=== PATIENT | female | born 1990 | race Caucasian/White ===

== ENCOUNTER 2023-11-05 16:18 | Observation (INO) ==
[2023-11-05 16:59] VITALS: RESP 18
--- NOTE | 2023-11-05 19:11 | Ultrasound Report ---
Examination: OB Ultrasound, CLINICAL HISTORY: prolonged monitoring. Gestational hypertension Technique: Multiple real-time transabdominal sonographic images were obtained. Comparison: None available at the time of this dictation. Findings: There is a fetus in cephalic presentation. heart rate measures 142 bpm. Amniotic fluid index me asures 8.7 cm. Biophysical profile measures 4/8 as follows: Movement: 2 Tone: 0 Breathin Fluid: 2 IMPRESSION: A single live intrauterine with measurements as above. ACT 112: Negative or not required by law. Electronically signed by: J Carlos Perez M.D. 11/05/2023 7:09 PM
--- NOTE | 2023-11-05 21:49 | History & Physical Report ---
Date of Service November 05, 2023 Assessment & Plan (1) Decreased movement affecting management of in third tr imester: Plan: repeat BPP in AM continuous monitoring overnight History of Present Illness Chief Complaint: prolonged monitoring Primary Care Provider: NO PCP 33 F P0Alaina at 35 weeks was seen in the office today for her routine BPP which was 4/8/ She was seen and put on monitor and had a repeat BPP which was 4/8 and Cat 1 FHT. I spoke to [facility] fellow who then discussed the patient with Dr. Hickey. She recommended the patient be monitored overnight with a repeat BPP in the morning. Allergies Allergy/AdvReac Type Severity Reaction Status Date / Time No Known Allergies Allergy Verified 02/03/18 09:30 Home Medications Medication Instructions Recorded Confirmed Type famotidine 20 mg tablet (Pepcid) 20 mg PO DAILY 11/05/23 11/05/23 History vits no.124-ferrous fum 1 tab PO DAILY 11/05/23 11/05/23 History 27 mg iron-folic acid 800 mcg tablet ( Vitamin) Patient History Medical History Torn ACL (anterior cruciate ligament) left PCOS (polycystic ovarian syndrome) GERD (gastroesophageal reflux disease) Environmental allergies Surgical History History of open reduction and internal fixation (ORIF) procedure RT T[place] ([place]) History of tooth extraction History of tonsillectomy History of adenoidectomy History of myringotomy Family History Grandmother Family history of diabetes mellitus Maternal and Paternal Social History Smoking Status: Never smoker Second Hand Exposure: No; Do You Dip or Chew Tobacco: No; Hx Alcohol Use: Yes Alcohol type: beer, wine and hard liquor Hx Substance Use: No Preferred Language: Kazakh Communication Ability: Effective Is Technician Required: No Beliefs That Will Affect Care: None marital status: Current Living Situation: Spouse Other Information That Helps Us Care for You: No Feels Safe at Home: Yes OB History GHTN DELIVERY MANAGER History Dysplasia Review of Systems All systems reviewed & are unremarkable except as noted in HPI & below Physical Exam Constitutional: WD/WN, vitals as above Eyes: PERRL, conjunctivae normal, anicteric sclerae Respiratory: normal respiratory effort, lungs clear to auscultation Cardiovascular: Rate/Rhythm: regular rate and regular rhythm Gastrointestinal (Abdomen): Inspection/Auscultation: abdomen normal to inspection Musculoskeletal: Extremities: extremities normal to inspection Skin: no rashes, warm and dry Neurologic: patellar DTR's 2+ bilat, sensation intact Psychiatric: A+Ox3, euthymic affect Genitourinary: OB Exam Monitor Tracing: + external FHT monitor used, + external uterine monitor used, + category I and + normal FHT variability Results & Data Vital Signs (Past 12 Hours) Vital Signs Temp Pulse Resp BP 11/05/23 20:28 118 H 11/05/23 20:28 133/86 11/05/23 20:21 120 H 11/05/23 20:21 142/87 H 11/05/23 20:15 36.5 C 11/05/23 17:55 122 H 139/83 11/05/23 16:45 36.5 C 116 H 18 155/88 H 11/05/23 16:38 116 H 155/88 H Code Status & VTE Plan VTE Prophylaxis Plan VTE Prophylaxis will be ordered: No Reason for no VTE drug order: Treatment not indicated Monitoring External Monitor Cat 1
[2023-11-05] MEDS: FAMOTIDINE 20 MG TAB PO ONE (22:00)
[2023-11-05] MEDS: CALCIUM CARBONATE 500 MG CHEWABLE TAB PO PRN (22:39)
--- OUTSIDE RECORDS SUMMARY | 2023-11-06 03:23 | External Medical Summary | Summary of Care ---
Author Name Unknown Organization [facility] Address [address] [place] [address] Phone [phone] Care Team Providers Care Elevator Adjuster Name Role Phone Unavailable Primary Care Provider Unavailabl e Reason for Referral * Evaluate & Treat - Unlimited Visits (Within 10 days (routine)) - Authorized Specialty Diagnoses / Procedures Referred By Franc t Referred To Contact Obstetrics/Gynecology / Maternal Medicine Diagnoses Gestational hypertension without significant proteinuria in third trimester Yuri Morin CRNP [address] [place] [address] Referral ID Status Reason Start Date Expiration Date Visits Requested Visits Authorized [id number] Authorized Specialty Services Required 10/24/2023 999 999 Question Answer Referral Priority Within 10 days (routine) Has the patient had a viability scan? Yes Date performed 05/20/2023 Location performed Radiology Reason for referral Hypertension Hypertension type Gestational Where should this appointment be scheduled? [facility] Comments /Para: LMP: Patient's last menstrual period was 03/05/2023. Patient is . JIN: 12/10/2023, by Last Menstrual Period Pre-Gravid BMI: 38.80 Encounter Details Date Type Department Care Team (Late st Contact Info) Description 10/23/2023 Telephone Gynecology/Obstetrics [facility] [address] [place] [phone] Yuri Morin CRNP [address] [place] [id number] Allergies No known active allergiesdocumented as of this encounter (statuses as of 10/29/2023) Medications Medication Sig Dispensed Refills Start Date End Date Status /Iron Oral Tablet Take by mouth. 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 05/30/2023 Overview: LSIL +HPV on pap at [facility] Obesity, Class II, BMI 35-39.9 05/20/2023 Overview: Early glucola Growth u/s every 4 weeks after 20wk NST weekly at 37w PCOS (polycystic ovarian syndrome) 05/20/2023 Estimated Date of Delivery Comme nts Yes 12/10/2023 Based on last me nstrual period of 03/05/2023 documented as of this encounter (statuses as of 10/29/2023) Resolved Problems Problem Noted Date Diagnosed Date Resolved Date Elevated blood pressure, situational 10/22/2023 10/24/2023 Overview: 140/90 10/22/23; preE labs sent Supervision of normal first , antepartum 05/20/2023 10/24/2023 documented as of this encounter (statuses as of 10/29/2023) Immunizations Name Administration Dates Next Due TDAP, Age 7 and older, IM (Adacel) 10/08/2023 documented as of this encounter Social History Tobacco Use Types Packs/Day Years Used Date Smoking Tobacco: Never Smokeless Tobacco: Never Alcohol Use Standard Drinks/Week Comments Not Currently 0 (1 standard drink = 0.6 oz pur e alcohol) Hunger Vital Sign Answer Date Recorded Within the past 12 months, y ou worried that your food would run out before you got the money to buy more. Never true 05/17/19 24 Within the past 12 months, t he food you bought just didn't last and you didn't have money to get more. Never true 05/17/2023 [place] Depression Scale Answer Date Recorded [place] Depression Scale Total 2 05/20/2023 The thought of harming myself has occurred to me . Never 05/20/2023 Childcare Answer Date Recorded Do you feel overwhelmed with taking care of a child, family member or friend? No 05/17/2023 Does your family need help f inding childcare? (Household - for ages 0-17 years) Not on file 05/17/2023 Clothing Answer Date Recorded Have you been unable to get clothing when it was really needed? No 05/17/2023 Is your family able to get c lothes or diapers when needed? (Household - for ages 0-17 years) Not on file 05/17/2023 Personal Safety Answer Date Recorded Do you feel unsafe or have concerns for your saf ety? No 05/17/2023 Do you have concerns for you r family's safety? (Household - for ages 0-17 years) Not on file 05/17/2023 Utilities Answer Date Recorded Do you have trouble paying y our heating, water, or electric bill? No 05/17/2023 Is your family able to pay t he heat, water, or electric bill? (Household - for ages 0-17 years) Not on file 05/17/2023 Does your family have access to good internet? (Household - for ages 0-17 years) Not on file 05/17/2023 Employment Status Answer Date Recorded Are you unemployed or without regular income? No 05/17/2023 Does the household have a re gular source of income? (Household - for ages 0-17 years) Not on file 05/17/2023 Social Connections Answer Date Recorded How often do you feel lonely or isolated from th ose around you? Never 05/17/2023 Financial Resource Strain Answer Date R ecorded Do you have any trouble payi ng for your medications, or do you think you might in the future? No 05/17/2023 Does your family have troubl e paying for medicine? (Household - for ages 0-17 years) Not on file 05/17/2023 Transportation Needs Answer Date Record ed READ ONLY Do you have troubl e getting a ride to medical visits or work? Never True 05/17/2023 Does your family have a hard time getting a ride to doctors visits? (Household - for ages 0-17 years) Not on file 05/17/2023 Has lack of transportation k ept you from medical appointments, meetings, work, or from getting things needed for daily living? Check all that apply. (Adult - for ages 18 years and over) Not on file 05/17/2023 Do you (or your family) have trouble finding or paying for a ride (transportation)? (Household - for ages 0-17 years) Not on file 05/17/2023 Housing Stability Answer Date Recorded Do you currently live in a s helter or have no steady place to sleep at night? No 05/17/2023 READ ONLY Do you think you a re at risk of becoming homeless? No 05/17/2023 Does your family worry about paying for your home or becoming homeless? (Household - for ages 0-17 years) Not on file 0 05/17/2023 Are you homeless or worried that you might be in the future? (Adult - for ages 18 years and over) Not on file Are you (or your family) pattie eless or worried that you might be in the future? (Household - for ages 0-17 years) Not on file Food Insecurity Answer Date Recorded Do you need food for this week? No 05/17/2023 Are you able to get enough f ood for your family? (Household - for ages 0-17 years) Not on file 05/17/2023 Does your family need food t his week? (Household - for ages 0-17 years) Not on file 05/17/2023 Do you always have enough fo od for your family? (Household - for ages 0-17 years) Not on file 05/17/2023 Estimated Date of Delivery Comme nts Yes 12/10/2023 Based on last me nstrual period of 03/05/2023 Sex and Gender Information Value Date Recorded Sex Assigned at Female 05/17/2023 12:34 PM EST Gender Identity Female 05/17/2023 12:34 PM EST Sexual Orientation Straight 05/17/2023 12 :40 PM EST Job Start Date Occupation Industry Not on file Not on file Not on file documented as of this encounter Miscellaneous Notes * Telephone Encounter - Arti Porras PA-C - 10/25/2023 4:25 PM EDT Veronica had left for day when patient was here for appointment. She had non-reactive NST/ BPP was 10/30 on 10/25/2023. Patient again declines twice weekly appointment for NST -- states won't work with her work schedule. She prefers to proceed with once weekly BPP and BP checks as discussed previously with FredisJessica Martin, can you call patient and schedule her back for once weekly NST starting this Saturday 10/28. Needs to be every Saturday. I also recommended appointment with provider with each BPP. Please assist. Arti Porras PA-C * Telephone Encounter - Nataliya Ba LPN - 10/24/2023 11:22 AM EDT Pt will schedule bpp tomorrow when she comes in for nst * Addendum Note - Yuri Morin CRNP - 10/24/2023 11:05 AM EDT Addended by: YURI MORIN on: 10/24/2023 11:05 AM Modules accepted: Orders * Addendum Note - Nataliya Ba LPN - 10/24/2023 10:58 AM EDTAddended by: NATALIYA BA on: 10/24/2023 10:58 AM Modules accepted: Orders * Telephone Encounter - Nataliya Ba LPN - 10/24/2023 10:56 AM EDT Pt verbalized understanding and said she will get that scheduled for BPP and elise appt/ bp check tomorrow when she comes in . Will you please place order for BPP? * Telephone Encounter - Yuri Morin CRNP - 10/24/2023 10:41 AM EDT Would advise at least a weekly BPP and weekly BP check/provider visit. CARMELO Naylor * Telephone Encounter - Thu Gallo RN - 10/24/2023 10:22 AM EDT Patient calling back in. 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 She states she wants to see if possible due to the far travel. Patient advised that we do not typically recommend this, unless it would be another [facility] location. But Advised I would discuss other options with the provider. Please review/advise if patient could have some NSTs done at outside location or if recommend BPP Instead? She states it will be very hard for her travel here twice a week with her working in [place], [place] 3 days a week also. * Telephone Encounter - Nataliya Ba LPN - 10/24/2023 8:55 AM EDT Spoke with pt she verbalized understanding. Appt made for NST only tomorrow and pt will schedule tomorrow for next weeks nst * Telephone Encounter - Yuri Morin CRNP - 10/24/2023 8:32 AM EDT Diagnosed with GHTN based on BPs. Needs to start 2x/week NSTs. Will place a referral to MFM, they will want to do a growth u/s when due and a telemedicine visit with her for recommendations. Continue twice daily BP checks - call office with >/=160 systolic, >/=100 diastolic, new ANTONY, vision changes, abdominal pain, decreased FM, bleeding, labor signs. Will also need weekly preE labs; most recently completed earlier this week. NST tomorrow, as she had one on Saturday. CARMELO Naylor * Telephone Encounter - Nataliya Ba LPN - 10/23/2023 3:04 PM EDT Pt called in today with her BP's 815am: 132/91 1210pm: 143/93 Pt denies any ANTONY's, Vision changes, RQ pain, LOF, vb, Ctxs Pt said she is just going to monitor BP until next appt. Please review and advise for any f/u. documented in this encounter Plan of Treatment Upcoming Encounters Date Type Department Care Team (Late st Contact Info) Description 11/01/2023 1:30 PM EDT Hem/Onc Treatment Hematology/Oncology Treatment, [address] [place] [id number] Anita, Chair 4 Hem Onc [facility] [address] [place] [address] 11/04/2023 2:30 PM EDT Pharmacy Pharmacy, [place] [address] [place] [address] Clinic, [facility] [address] [place] [address] 11/05/2023 3:00 PM EDT Imaging Radiology [facility] [address] [facility] [place] [address] 11/05/2023 4:15 PM EDT Office Visit Gynecology/Obstetrics [facility] [address] [facility] [place] [address] Nuno Phelps, [place] [place] [address] 11/07/2023 4:15 PM EDT Telemedicine Cigarette Making Examiner Obstetric [facility] [address] [place] [address] [place] [address] Stephanie Hall CRNP [address] [place] [address] 11/12/2023 3:30 PM EDT Imaging Radiology [facility] 2nd [facility] [address] [facility] [place] [address] 11/12/2023 3:30 PM EDT Office Visit Gynecology/Obstetrics [address] [place] [address] Arely Canales PA-C [address] [place] [address] 11/19/2023 8:00 AM EDT Office Visit Gynecology/Obstetrics [address] [place] [address] Rosalie Dykes CRNP [address] [facility] [place] [address] 11/19/2023 8:30 AM EDT Office Visit Cigarette Making Examiner Obstetrics [facility], [place] [address] [place] [address] Kasey Condon DO [address] [place] [address] 11/19/2023 8:30 AM EDT Imaging [facility]iology [facility] [address] [place] [address] Scheduled Orders Name Type Priority Associated Diagnoses Orde r Schedule MFM US MATERNAL 1ST FETUS Medical Imaging Routine Gestational hypertension without significant proteinuria in third trimester Expected: 11/07/2023 (Approximate), Expires: 11/23/2024 US BPP W/O NON-STRESS TEST Medical Imaging Routine Gestational hypertension without significant proteinuria in third trimester High-risk in third trimester Obesity, Class II, BMI 35-39.9 Every Week for 6 Occurrences starting 10/24/2023 until 01/24/2024 Scheduled Referrals Name Type Priority Associated Diagnoses Orde r Schedule MATERNAL MEDICINE REFERRAL OP Referral Within 10 days (routine) Gestational hypertension without significant proteinuria in third trimester Ordered: 10/24/2023 Health Maintenance Due Date Last Done Comments Depression Screening 2002 COVID-19 Vaccine ( season) 2022 04/20/2020, 03/30/2020 Influenza Vaccine (FLU shot) (#1) 2023 01/28/2023, 01/08/2018, 01/31/2014 GFR 10/21/2024 10/22/2023, 09/20/2023 Pap Smear 05/20/2026 05/20/2023 Cervical Cancer Screening 05/20/2028 HPV/Co-Test 05/20/2028 05/20/2023 DTaP,Tdap,and Td Vaccines (8 - Td or Tdap) 10/07/2033 10/08/2023, 09/06/2008, 11/04/1995, Additional history exists Hepatitis B Vaccine Completed 02/09/1993, 08/10/1992, 06/30/1992 HPV (Gardasil) Vaccine Aged Out No lo nger eligible based on patient's age to complete this topic MENINGOCOCCAL (MENACTRA/MENVEO) Aged Out No longer eligible based on patient's age to complete this topic Pneumococcal Vaccine: Pediatrics (0 to 5 Years) and At-Risk Patients (6 to 64 Years) Aged Out No longer eligible based on patient's age to complete this topic documented as of this encounter Medical Devices Not on filedocumented as of this encounter Visit Diagnoses Diagnosis Gestational hypertension without significant proteinuria in third trimester- Primary Transient hypertension of , antepartum High-risk in third trimester Obesity, Class II, BMI 35-39.9 Morbid obesity documented in this encounter
--- OUTSIDE RECORDS SUMMARY | 2023-11-06 03:23 | External Medical Summary | Summary of Care ---
Author Name Unknown Organization [facility] Address [address] [place] [address] Phone [phone] Care Team Providers Care Affiliate Manager Name Role Phone Unavailable Primary Care Provider Unavailabl e Reason for Referral * Evaluate & Treat - Unlimited Visits (Within 10 days (routine)) - Authorized Specialty Diagnoses / Procedures Referred By Franc t Referred To Contact Obstetrics/Gynecology / Maternal Medicine Diagnoses Gestational hypertension without significant proteinuria in third trimester Yuri Morin CRNP [address] [place] [address] Referral ID Status Reason Start Date Expiration Date Visits Requested Visits Authorized [id number] Authorized Specialty Services Required 10/24/2023 999 999 [...] Gynecology/Obstetrics [facility] [address] [place] [address] Yuri Morin CRNP [address] [place] [address] Allergies No known active allergiesdocumented as of this encounter (statuses as of 10/28/2023) Medications Medication Sig Dispensed Refills Start Date End Date Status /Iron Oral Tablet Take by mouth. Active documented as of this encounter (statuses as of 10/28/2023) Active Problems Problem Noted Date Diagnosed Date [...] as of this encounter (statuses as of 10/28/2023) Resolved Problems Problem Noted Date Diagnosed Date Resolved Date Elevated blood pressure, situational 10/22/2023 10/24/2023 Overview: 140/90 10/22/23; preE labs sent Supervision of normal first , antepartum 05/20/2023 10/24/2023 documented as of this encounter (statuses as of 10/28/2023) Immunizations Name Administration Dates Next Due TDAP, [...] money to get more. 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 She states she wants to see if possible due to the far travel. Patient advised that we do not typically recommend this, unless it would be another [facility] location. But Advised I would discuss other options with the provider. Please review/advise if patient could have some NSTs done at outside location or if recommend BPP Instead? She states it will be very hard for her travel here twice a week with her working in [place], [place] 3 days a week also. * [...] Care Team (Late st Contact Info) Description 10/29/2023 1:45 PM EDT Imaging Radiology [facility] [address] [place] [address] 10/29/2023 2:45 PM EDT Office Visit Gynecology/Obstetrics [facility] [address] [place] [address] Yuri Morin CRNP [address] [place] [address] 11/01/2023 1:30 PM EDT Hem/Onc Treatment Hematology/Oncology Treatment, [place] [address] [place] [address] [place], Chair 4 Hem Onc [facility] [address] [place] [address] 11/04/2023 2:30 PM EDT Pharmacy Pharmacy, [place] [address] [place] [address] [facility], [facility] [address] [place] [address] 11/05/2023 3:00 PM EDT Imaging Radiology [facility] [address] [place] [address] 11/05/2023 4:15 PM EDT Office Visit Gynecology/Obstetrics [facility] [address] [place] [address] Nuno Phelps, [address] [address] 11/07/2023 4:15 PM EDT Telemedicine Paper Inserter Obstetric [facility] [address] [place] [address] Stephanie Hall CRNP [address] [place] [address] 11/19/2023 8:00 AM EDT Office Visit Gynecology/Obstetrics [facility] [address] [place] [address] Rosalie Dykes CRNP [address] [place] [address] 11/19/2023 8:30 AM EDT Office Visit Paper Inserter Obstetrics [facility], [place] [address] [place] [address] Kasey Condon DO [address] [place] [address] 11/19/2023 8:30 AM EDT Imaging [facility] [address] [place] [address] Scheduled Orders Name Type Priority Associated Diagnoses [...]
--- OUTSIDE RECORDS SUMMARY | 2023-11-06 03:23 | External Medical Summary | Summary of Care ---
Author Name Unknown Organization [facility] Address [address] [place] [address] Phone [phone] Care Team Providers Care Food And Beverage Outlets Manager Name Role Phone Unavailable Primary Care Provider Unavailabl e Reason for Referral * Evaluate & Treat - Unlimited Visits (Within 10 days (routine)) - Authorized Specialty Diagnoses / Procedures Referred By Franc t Referred To Contact Obstetrics/Gynecology / Maternal Medicine Diagnoses Gestational hypertension without significant proteinuria in third trimester Yuri Morin CRNP [address] [place] [address] Referral ID Status Reason Start Date Expiration Date Visits Requested Visits Authorized [id number] Authorized Specialty Services Required 10/24/2023 999 999 [...] Gynecology/Obstetrics Shital Louises [address] [place] [address] Yuri Morin CRNP [address] [place] [address] Allergies No known active allergiesdocumented as of [...] money to get more. 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 She states she wants to see if possible due to the far travel. Patient advised that we do not typically recommend this, unless it would be another [facility] location. But Advised I would discuss other options with the provider. Please review/advise if patient could have some NSTs done at outside location or if recommend BPP Instead? She states it will be very hard for her travel here twice a week with her working in [place], [place] 3 days a week also. * [...] 1:30 PM EDT Hem/Onc Treatment Hematology/Oncology Treatment, [address] [place] [phone] Anita, Chair 4 Hem Onc [facility] 200 [place] [address] 11/04/2023 2:30 PM EDT Pharmacy Pharmacy, [place] [address] [place] [address] Clinic, [facility] [address] [place] [address] 11/05/2023 3:00 PM EDT Imaging Radiology [facility] 132 [facility] [place] [address] 11/05/2023 4:15 PM EDT Office Visit Gynecology/Obstetrics [address] [place] [address] Nuno Phelps, [facility] [address] [place] [address] 11/07/2023 4:15 PM EDT Telemedicine Heat Seal Operator Obstetric [facility] [address], [place] [address] [place] [phone] Stephanie Hall CRNP [address] [place] [address] 11/12/2023 3:30 PM EDT Imaging Radiology [facility] 2nd [facility] 132 [facility] [place] [address] 11/19/2023 8:00 AM EDT Office Visit Gynecology/Obstetrics [address] [place] [address] Rosalie Dykes CRNP 132 [place] [address] 11/19/2023 8:30 AM EDT Office Visit Heat Seal Operator Obstetrics Maternal Medicine, [place] [address] [place] [address] Kasey Condon DO [address] [place] [address] 11/19/2023 8:30 AM EDT Imaging Radiology [facility] [address] [place] [address] Scheduled Orders Name Type Priority Associated Diagnoses [...]
--- OUTSIDE RECORDS SUMMARY | 2023-11-06 03:23 | External Medical Summary | Summary of Care ---
Author Name Unknown Organization [facility] Address [address] [facility] [address] Phone [phone] Care Team Providers Care Outside Sales Account Executive Name Role Phone Unavailable Primary Care Provider Unavailabl e Reason for Visit * Reason Comments IV Therapy Infed Encounter Details Date Type Department Care Team (Latest Contact Info) Description 11/01/2023 1:30 PM EDT Hem/Onc Treatment Hematology/Oncology Treatment, [address] [address] Anita, Chair 4 Hem Onc [address] [address] Iron deficiency anemia, unspecified iron deficiency anemia type* Allergies No known active allergiesdocumented as of this encounter (statuses as of 11/01/2023) Medications Medication Sig Dispensed Refills Start Date End Date Status /Iron Oral Tablet Take by mouth. Active documented as of this encounter (statuses as of 11/01/2023) Active Problems Problem Noted Date Diagnosed Date [...] as of this encounter (statuses as of 11/01/2023) Resolved Problems Problem Noted Date Diagnosed Date Resolved Date Elevated blood pressure, situational 10/22/2023 10/24/2023 Overview: 140/90 10/22/23; preE labs sent Supervision of normal first , antepartum 05/20/2023 10/24/2023 documented as of this encounter (statuses as of 11/01/2023) Immunizations Name Administration Dates Next Due TDAP, [...] money to get more. Never true 05/17/2023 Jal Depression Scale Answer Date Recorded Jal Depression Scale Total 2 05/20/2023 The thought [...] No 05/17/2023 Does the household have a [facility] source [facility] income? (Household - for ages [...] on file documented as of this encounter Last Filed Vital Signs Vital Sign Reading Time Taken Comments Blood Pressure 130/83 11/01/2023 3:19 PM EDT Pulse 93 11/01/2023 3:19 PM EDT Temperature 36.7 C (98.1 F) 11/01/2023 1:33 PM ED T Respiratory Rate 16 11/01/2023 3:19 PM EDT Oxygen Saturation 96% 11/01/2023 3:19 PM EDT Inhaled Oxygen Concentration - - Weight - - Height - - Body Mass Index - - documented in this encounter Nursing Notes * La Nena Coles RN - 11/01/2023 3:36 PM EDT Goals: Patient will remain free from injury. Possible barriers to meeting goals: ambulating with IV pole Stability of the patient: Moderately stable - low risk of patient condition declining or worsening Summary regarding today's goals: Met: pt remained free of harm today Patient tolerated treatment well without any acute issues or problems. Patient left facility in stable condition and denied any further needs. * La Nena Coles RN - 11/01/2023 2:06 PM EDT 1347 - Infed test dose starting to be administered IVP. 1348 - Patient started to get very nauseas and feeling like she needed to vomit. Emesis bag broughtto pt. Patient vomited clear liquid multiple times. She said she did not really eat much today. She ate yogurt before coming in today but that was mostly it. Dr. Price came to chair side to assess pt. No emergency meds given. Per Dr. Price, we can continue to try to finish test dose once pt starts feeling better and proceed. 1359 - IVP test dose completed. Patient is feeling much better, no complaints. She was provided with several snacks and diet coke per request. 1414 - patient is feeling well, back to normal, no nausea. Ate and drank after test dose. Will proceed with Infed infusion. VSS. * La Nena Coles RN - 11/01/2023 2:02 PM EDT Chair 6. IV inserted. Patient was educated about Infed and process of the infusion today. She denied any further questions or concerns at this time. Safety and Risk for Injury Patient will remain free from injury. Ensure appropriate safety devices are available. Provide and maintain safe environment. Patient instructed on use of heat and massage functions where applicable. Patient shown how to operate the heat function of the chair and to alert nursing staff if the chair feels too warm. Patient instructed on the risk of potential shen while using the heat function. documented in this encounter Plan of Treatment Upcoming Encounters Date Type Department Care Team (Late st Contact Info) Description 11/04/2023 2:30 PM EDT Pharmacy Pharmacy, [address] [place] [address] Clinic, [place] [address] [place] [address] 11/05/2023 3:00 PM EDT Imaging Radiology [facility] 132 [place] [address] 11/05/2023 4:15 PM EDT Office Visit Gynecology/Obstetrics [address] [address] Nuno Phelps, [facility] [address] [place] [address] 11/07/2023 4:15 PM EDT Telemedicine Local Company Tanker Driver Obstetric [facility] 3 [place] [phone] Stephanie Hall CRNP [facility] [place] [address] 11/12/2023 2:45 PM EDT Imaging Radiology [facility] [address] [place] [address] 11/12/2023 3:30 PM EDT Office Visit Gynecology/Obstetrics [address] [place] [address] Arely Canales PA-C [address] [place] [address] 11/19/2023 8:00 AM EDT Office Visit Gynecology/Obstetrics [address] [place] [address] Rosalie Dykes CRNP 132 [place] [address] 11/19/2023 8:30 AM EDT Office Visit Local Company Tanker Driver Obstetrics Maternal Medicine, [place] [address] [place] [address] Kasey Condon, [address] [place] [address] 11/19/2023 8:30 AM EDT [facility] [place] [address] [place] [address] Health Maintenance Due Date Last Done Comments [...] as of this encounter Visit Diagnoses Diagnosis Iron deficiency anemia, unspecified iron deficiency anemia type- Primary documented in this encounter Administered Medications Active Administered Medications - up to 3 most recent administrations Medication Order MAR Action Action Date Dose Rate Site EPINEPHrine 1 MG/ML inj 0.3 mg 0.3 mg, Intramuscular, ONCE PRN Other, Hypersensitivity Reaction or Anaphylaxis, Starting on 11/01/23 at 1346, Until 11/02/23 at 1345, For 24 hours Famotidine (Pepcid) inj 20 mg 20 mg, IV Push, ONCE PRN Other, Hypersensitivity Reaction, Starting on Sat11/01/23 at 1346, Until 11/02/23 at 1345, For 24 hours, Give IV push over 2 minutes. hEParin 100 UNIT/ML Lock Flush inj 500 Units 500 Units (5 mL), IV Lock, PRN Other, IV Flush, Starting on Sat11/01/23 at 1346, Until 11/02/23 at 1345, For 24 hours, Do not flush if lock, PICC, or central line not in place; IV infusing or unable to flush. Hydrocortisone Sod Suc (PF) (Solu-Cortef) inj 100 mg 100 mg, IV Push, ONCE PRN Other, Hypersensitivity Reaction, Starting on Sat11/01/23 at 1346, Until 11/02/23 at 1345, For 24 hours NSS infusion Intravenous, at 50 mL/hr, PRN, Starting on Sat11/01/23 at 1500, Until Discontinued, Maintenance line Start Infusion 11/01/2023 1:48 PM EDT 50 mL/hr oxygen GAS Inhalation, OXYGEN, First dose on Sat11/01/23 at 1600, Until Discontinued, Device/Managed by: Low Flow Device, Goal SPO2 (%): 91-95, Starting Device: Nasal Cannula, Initial Flow Rate (LPM): 2, Lowest Support: Nasal Cannula: Flow 0-6 LPM. Titrate up/down by 1 LPM., Higher Support: Non-Rebreather (NRB) Mask: Minimum of 10 LPM. Titrate to maintain bag inflation., Titration Interval: Q2 minutes and as needed., Notify Provider: For sudden DECREASE in resting SPO2 to less than 85% and when escalating delivery device., Wean patient off Oxygen when the oxygen saturation is greater than or equal to 93% sodium chloride 0.9 % flush central line 10 mL 10 mL, IV Push, PRN Other, IV Flush, Starting on Sat11/01/23 at 1346, Until 11/02/23 at 1345, For 24 hours, Do not flush if lock, PICC, or central line not in place; IV infusing or unable to flush. Inactive Administered Medications - up to 3 most recent administrations Medication Order MAR Action Action Date Dose Rate Site Iron Dextran (Infed) 975 mg in NSS 250 mL INFUSION 975 mg, IV Piggyback, ONCE, 1 dose, On Sat11/01/23 at 1515, Administer over 1 Hours, - Administer iron dextran infusion bag over 1 hour - Monitor for infusion reactions with vitals at 30 minutes and 60 minutes after starting the infusion. - If patient develops sign/symptoms of reaction or vital signs outside normal limits: 1) STOP infusion 2) CONTACT physician Start Infusion 11/01/2023 2:17 PM EDT 975 mg 274.5 mL/hr Iron Dextran (Infed) IV Push TEST DOSE 25 mg IV Push, Administer over 0.5 Minutes, -Educate patient on signs/symptoms of infusion reaction -Administer 25 mg test dose of iron dextran before infusion bag -Observe patient for signs/symptoms of reaction with vital signs before test dose, then at 15 minutes after administering the test dose -If patient tolerates test dose with no reaction, proceed with iron dextran infusion -HOLD infusion and contact physician immediately if patient reacts to test dose, ONCE, 1 dose, On Sat11/01/23 at 1500 Given 11/01/2023 1:47 PM EDT 25 mg documented in this encounter
--- OUTSIDE RECORDS SUMMARY | 2023-11-06 03:23 | External Medical Summary | Summary of Care ---
Author Name Unknown Organization [facility] Address [address] [place] [address] Phone [phone] Care Team Providers Care Adding Machine Operator Name Role Phone Unavailable Primary Care Provider Unavailabl e Reason for Referral * Evaluate & Treat - Unlimited Visits (Within 10 days (routine)) - Authorized Specialty Diagnoses / Procedures Referred By Franc t Referred To Contact Obstetrics/Gynecology / Maternal Medicine Diagnoses Gestational hypertension without significant proteinuria in third trimester Yuri Morin CRNP [address] [place] [address] Referral ID Status Reason Start Date Expiration Date Visits Requested Visits Authorized [id number] Authorized Specialty Services Required 10/24/2023 999 999 [...] Gynecology/Obstetrics Shital Louises [address] [place] [address] Yuri Morin CRNP [address] [place] [address] Allergies No known active allergiesdocumented as of [...] money to get more. 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 She states she wants to see if possible due to the far travel. Patient advised that we do not typically recommend this, unless it would be another [facility] location. But Advised I would discuss other options with the provider. Please review/advise if patient could have some NSTs done at outside location or if recommend BPP Instead? She states it will be very hard for her travel here twice a week with her working in [place], [place] 3 days a week also. * [...] Description 10/29/2023 1:45 PM EDT Imaging Radiology [facility] [address] [place] [address] 10/29/2023 2:45 PM EDT Office Visit Gynecology/Obstetrics [facility] [address] [place] [address] Yuri Morin CRNP [address] [place] [address] 11/01/2023 1:30 PM EDT Hem/Onc Treatment Hematology/Oncology Treatment, [place] [address] [place] [address] Park, Chair 4 Hem Onc [place] [address] [place] [address] 11/04/2023 2:30 PM EDT Pharmacy Pharmacy, [place] [address] [place] [address] [facility] [address] [place] [address] 11/05/2023 3:00 PM EDT Imaging Radiology [facility] [address] [place] [address] 11/05/2023 4:15 PM EDT Office Visit Gynecology/Obstetrics [facility] [address] [place] [address] Nuno Phelps, [address] [address] 11/07/2023 4:15 PM EDT Telemedicine Cavalry Scout Obstetric [facility] W [facility] 3 [place] [address] Stephanie Hall CRNP [address] [place] [address] 11/19/2023 8:00 AM EDT Office Visit Gynecology/Obstetrics [facility] [address] [place] [address] Rosalie Dykes CRNP [address] [place] [address] 11/19/2023 8:30 AM EDT Office Visit Cavalry Scout Obstetrics Maternal Medicine, [place] [address] [place] [address] Kasey Condon DO [address] [place] [address] 11/19/2023 8:30 AM EDT Imaging [place]iology [place] [address] [place] [address] Scheduled Orders Name Type Priority Associated Diagnoses [...]
--- OUTSIDE RECORDS SUMMARY | 2023-11-06 03:24 | External Medical Summary | Summary of Care ---
Author Name Unknown Organization [facility] Address [address] [facility] [place] [address] Phone [phone] Care Team Providers Care Glue Reel Operator Name Role Phone Unavailable Primary Care Provider Unavailabl e Reason for Visit * Reason Comments Return Visit Non Stress Test Encounter Details Date Type Department Care Team (Late st Contact Info) Description 10/25/2023 3:30 PM EDT Office Visit Gynecology/Obstetric s Suraj'michael Berg [address] [place] [address] Arti Porras PA-C [address] [place] [address] [place] Non Stress Tests [place] [address] [place] [address] High-risk in third trimester*; Obesity, Class II, BMI 35-39.9; Antepartum anemia complicating ; Gestational hypertension without significant proteinuria in third trimester Allergies No known active allergiesdocumented as of this encounter (statuses as of 10/25/2023) Medications Medication Sig Dispensed Refills Start Date End Date Status /Iron Oral Tablet Take by mouth. Active documented as of this encounter (statuses as of 10/25/2023) Active Problems Problem Noted Date Diagnosed Date [...] as of this encounter (statuses as of 10/25/2023) Resolved Problems Problem Noted Date Diagnosed Date Resolved Date Elevated blood pressure, situational 10/22/2023 10/24/2023 Overview: 140/90 10/22/23; preE labs sent Supervision of normal first , antepartum 05/20/2023 10/24/2023 documented as of this encounter (statuses as of 10/25/2023) Immunizations Name Administration Dates Next Due TDAP, [...] money to get more. Never true 05/17/2023 [place] Depression Scale Answer Date Recorded [place] Depression Scale Total 2 05/20/2023 The thought [...] No 05/17/2023 Does the household have a [facility] source of income? (Household - for ages [...] Sign Reading Time Taken Comments Blood Pressure 130/86 10/25/2023 3:14 PM EDT Pulse - - Temperature - - Respiratory Rate - - Oxygen Saturation - - Inhaled Oxygen Concentration - - Weight 103.9 kg (229 lb) 10/25/2023 3:14 PM EDT Height 160 cm (5' 3") 10/25/2023 3:14 PM EDT Body Mass Index 40.57 10/25/2023 3:14 PM EDT documented in this encounter Progress Notes * Arti Porras PA-C - 10/25/2023 4:37 PM EDT [id number] Diagnosed with GHTN this week -- not on medication. Presents today NST. BP stable at home she reports. Denies elevations. Received call from [facility] -- will reach back out to get scheduled with them as discussed. Discussed recommendation for twice weekly NST given GHTN. Pt had previous conversation with other AP in office about once weekly BPP and BP check instead as she is not able to make it to office for twice weekly appointment. Reports lives in [place] and works in [place], [place] -- cannot come 2x week and is declining this in favor of once weekly appts discussed. She is to schedule return appointment this Saturday 10/28 for BPP and weekly appointment with providersame day where BP can be checked too. She was agreeable. Denies LOF, VB, or contractions. Reports baby is active and movements normal. No concerns for decreased FM. ASSESSMENT assessment with Non-stress Test completed on 10/25/2023 at 33.3 weeks gestation for indication of GHTN heart baseline: 140 bpm Variability: Moderate Decelerations: absent Accelerations: present x 1 Contractions: None NST start time: 15:10 NST stop time: 15:43 NST strip reviewed, interpreted, and approved by OB provider, Arti Porras PA-C. NST strip stored in clinic storage file Non-reactive NST. BPP completed in follow up 10/30. Plan as above Arti Porras PA-C documented in this encounter Plan of Treatment Upcoming Encounters Date Type Department Care Team (Late st Contact Info) Description 10/30/2023 2:30 PM EDT Pharmacy Pharmacy, [place] [address] [facility] [place] [address] [facility] [address] [facility] [address] 11/01/2023 1:30 PM EDT Hem/Onc Treatment Hematology/Oncology Treatment, [place] [address] [place] [address] Anita, Chair 4 Hem Onc [place] [address] [facility], [place] [address] 11/05/2023 4:15 PM EDT Office Visit Gynecology/Obstetrics [facility]ital [facility] [address] [facility] [address] Nuno Phelps, [facility] [address] [facility] [address] 11/19/2023 8:00 AM EDT Office Visit Gynecology/Obstetrics Surajmichael [facility] [address] [facility] [address] Rosalie Dykes CRNP [address] [facility] [place] [address] Health Maintenance Due Date Last Done Comments [...] Not on filedocumented as of this encounter Results * US BPP W/O NON-STRESS TEST (10/25/2023 4:18 PM EDT) Anatomical Region Laterality Modality Abdomen, Body Ultrasound 10/25/2023 4:34 PM EDT Impressions 10/25/2023 4:32 PM EDT IMPRESSION: 1. BPP score: 8 of 8. 2. Normal MICHAEL. 3. Vertex presentation. Narrative 10/25/2023 4:32 PM EDT EXAM: US BPP W/O NON-STRESS TEST - 10/25/2023 4:18 pm HISTORY: Non reactive NST TECHNIQUE: Sonographic examination performed. COMPARISON: 10/22/2023 FINDINGS: GENERAL : [place] Presentation: Vertex heart rate: 147 bpm Amniotic Fluid: MVP 5.1 cm MICHAEL: 16.1 cm which is between the 50th and 95th percentiles for this stage of . BIOPHYSICAL PROFILE breathing movement: 2 Gross body movement: 2 tone: 2 Qualitative AFV: 2 Total BPP score: 8 of 8. Procedure Note Junior Ashley MD - 10/25/2023 EXAM: US BPP W/O NON-STRESS TEST - 10/25/2023 4:18 pm HISTORY: Non reactive NST TECHNIQUE: Sonographic examination performed. COMPARISON: 10/22/2023 FINDINGS: GENERAL : [place] Presentation: Vertex heart rate: 147 bpm Amniotic Fluid: MVP 5.1 cm MICHAEL: 16.1 cm which is between the 50th and 95th percentiles for this stageof . BIOPHYSICAL PROFILE breathing movement: 2 Gross body movement: 2 tone: 2 Qualitative AFV: 2 Total BPP score: 8 of 8. IMPRESSION IMPRESSION: 1. BPP score: 8 of 8. 2. Normal MICHAEL. 3. Vertex presentation. Arti Porras PA-C RAD ULTRASOUND documented in this encounter Visit Diagnoses Diagnosis High-risk in third trimester- Primary Obesity, Class II, BMI 35-39.9 Morbid obesity Antepartum anemia complicating Anemia, antepartum Gestational hypertension without significant proteinuria in third trimester Transient hypertension of , antepartum High-risk Unspecified high-risk documented in this encounter
--- OUTSIDE RECORDS SUMMARY | 2023-11-06 03:24 | External Medical Summary | Summary of Care ---
Author Name Unknown Organization [facility] Address [address] [place] [address] Phone [phone] Care Team Providers Care Doubling Machine Operator Name Role Phone Unavailable Primary Care Provider Unavailabl e Reason for Referral * Evaluate & Treat - Unlimited Visits (Within 10 days (routine)) - Authorized Specialty Diagnoses / Procedures Referred By Franc t Referred To Contact Obstetrics/Gynecology / Maternal Medicine Diagnoses Gestational hypertension without significant proteinuria in third trimester Trina Morin CRNP [address] [facility] [place] [address] Referral ID Status Reason Start Date Expiration Date Visits Requested Visits Authorized [id number] Authorized Specialty Services Required 10/24/2023 999 999 [...] Gynecology/Obstetrics Shital Louises [address] [place] [address] Trina Morin CRNP [address] [place] [address] Allergies No known active allergiesdocumented as of this encounter (statuses as of 10/24/2023) Medications Medication Sig Dispensed Refills Start Date End Date Status /Iron Oral Tablet Take by mouth. Active documented as of this encounter (statuses as of 10/24/2023) Active Problems Problem Noted Date Diagnosed Date [...] as of this encounter (statuses as of 10/24/2023) Resolved Problems Problem Noted Date Diagnosed Date Resolved Date Elevated blood pressure, situational 10/22/2023 10/24/2023 Overview: 140/90 10/22/23; preE labs sent Supervision of normal first , antepartum 05/20/2023 10/24/2023 documented as of this encounter (statuses as of 10/24/2023) Immunizations Name Administration Dates Next Due TDAP, [...] money to get more. Never true 05/17/2023 [place] Depression Scale Answer Date Recorded [place] Depression Scale Total 2 05/20/2023 The thought [...] encounter Miscellaneous Notes * Telephone Encounter - Thu Gallo RN - 10/24/2023 10:22 AM EDT Patient calling back in. 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 She states she wants to see if possible due to the far travel. Patient advised that we do not typically recommend this, unless it would be another [facility] location. But Advised I would discuss other options with the provider. Please review/advise if patient could have some NSTs done at outside location or if recommend BPP Instead? She states it will be very hard for her travel here twice a week with her working in [place], [place] 3 days a week also. * Telephone Encounter - Violeta Ba LPN - 10/24/2023 8:55 AM EDT Spoke with pt she verbalized understanding. Appt made for NST only tomorrow and pt will schedule tomorrow for next weeks nst * Telephone Encounter - Trina Morin CRNP - 10/24/2023 8:32 AM EDT [...] Saturday. CARMELO Naylor * Telephone Encounter - Violeta Ba LPN - 10/23/2023 3:04 PM EDT [...] Description 10/25/2023 3:30 PM EDT Office Visit Gynecology/Obstetrics Shital Berg [address] [place] [address] Arti Porras PA-C [address] [place] [address] Otis Non Stress Tests Paulino [address] [place] [address] 10/30/2023 2:30 PM EDT Pharmacy Pharmacy, [place] [place] [address] [place] [address] Clinic, An[place] [address] [place] [address] 11/01/2023 1:30 PM EDT Hem/Onc Treatment Hematology/Oncology Treatment, [place] [address] [place] [address] Anita, Chair 4 Hem Onc Scen[address] [facility] [address] 11/05/2023 4:15 PM EDT Office Visit Gynecology/Obstetrics Shital Berg [address] [place] [address] Nuno Phelps, [place] [address] [place] [address] 11/19/2023 8:00 AM EDT Office Visit Gynecology/Obstetrics [facility] [address] [place] [address] Rosalie Dykes CRNP [address] [place] [address] Scheduled Orders Name Type Priority Associated Diagnoses Orde r Schedule MFM US MATERNAL 1ST FETUS Medical Imaging Routine Gestational hypertension without significant proteinuria in third trimester Expected: 11/07/2023 (Approximate), Expires: 11/23/2024 Scheduled Referrals Name Type Priority Associated Diagnoses [...] trimester- Primary Transient hypertension of , antepartum documented in this encounter
--- OUTSIDE RECORDS SUMMARY | 2023-11-06 03:24 | External Medical Summary ---
Author Name Unknown Address Unknown Organization K01:LAB[facility]ATORY [facility] [place] - [address] [place] [address] Laboratory Report Ordering Provider Test Date Status INGRID LAM 10/22/2023 09:23:24 Final Observation Date Value Abnormality Reference (Units ) Status MYCODE SPECIMEN-SST 10/22/2023 09:23:24 Freezing of extracted DNA, whole blood and/or serum. Final Performing Location LABORATORY C - [address] [place] [address]
--- OUTSIDE RECORDS SUMMARY | 2023-11-06 03:24 | External Medical Summary | Summary of Care ---
Author Name Unknown Organization [facility] Address [address] [place] [address] Phone [phone] Care Team Providers Care Registered Nurse Fetal Name Role Phone Unavailable Primary Care Provider Unavailabl e Reason for Referral * Evaluate & Treat - Unlimited Visits (Within 10 days (routine)) - Authorized Specialty Diagnoses / Procedures Referred By Franc t Referred To Contact Obstetrics/Gynecology / Maternal Medicine Diagnoses Gestational hypertension without significant proteinuria in third trimester Yuri Morin CRNP [address] [place] [address] Referral ID Status Reason Start Date Expiration Date Visits Requested Visits Authorized [id number] Authorized Specialty Services Required 10/24/2023 999 999 [...] Gynecology/Obstetrics Shital Louises [address] [place] [address] Yuri Morin CRNP [address] [place] [address] Allergies No known active allergiesdocumented as of [...] money to get more. 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 She states she wants to see if possible due to the far travel. Patient advised that we do not typically recommend this, unless it would be another [facility] location. But Advised I would discuss other options with the provider. Please review/advise if patient could have some NSTs done at outside location or if recommend BPP Instead? She states it will be very hard for her travel here twice a week with her working in [place], [place] 3 days a week also. * [...] Description 10/30/2023 2:30 PM EDT Pharmacy Pharmacy, [place] [address] [place] [address] Clinic, Anemia [address] [place] [address] 11/01/2023 1:30 PM EDT Hem/Onc Treatment Hematology/Oncology Treatment, [place] [address] [place] [phone] Anita, Chair 4 Hem Onc Scene [facility] [address] 11/05/2023 4:15 PM EDT [facility] [address] [facility] [place] [address] Nuno Phelps CNM [address] [place] [address] 11/19/2023 8:00 AM EDT Office Visit Gynecology/Obstetrics [facility] [address] [facility] [place] [address] Rosalie Dykes CRNP [address] [place] [address] Scheduled Orders Name Type Priority Associated Diagnoses [...]
--- OUTSIDE RECORDS SUMMARY | 2023-11-06 03:24 | External Medical Summary ---
Author Name Unknown Address Unknown Organization K0G:[facility] [place] 57-10 - [address] [address] Laboratory Report Ordering Provider Test Date Status RASHEEDA WELCH 10/22/2023 09:23:24 Final Observation Date Value Abnormality Reference (Units ) Status Albumin 10/22/2023 09:23:24 3.6 Below low normal 3.8-5.0 (g/dL) Final AST (Aspartate aminotransferase) 10/22/2023 09:23:24 21 10-35 (U/L) Final Alk Phos 10/22/2023 09:23:24 114 35-130 (U/L) Final ALT (Alanine aminotransferase) 10/22/2023 09:23:24 32 10-35 (U/L) Final Bilirubin, Total 10/22/2023 09:23:24 0.2 <=1.2 (mg/dL) Final Bilirubin, Direct 10/22/2023 09:23:24 <0.2 0.0-0.3 (mg/dL) Final Protein 10/22/2023 09:23:24 6.4 6.0-8.3 (g/dL) Final Performing Location LAB[facility]ATORY [place] 57-1 0 - [address] [place] [address]
--- OUTSIDE RECORDS SUMMARY | 2023-11-06 03:24 | External Medical Summary | Summary of Care ---
Author Name Unknown Organization [facility] Address [address] [facility] [place] [address] Phone [phone] Care Team Providers Care Financial Reporting Advisor Name Role Phone Unavailable Primary Care Provider Unavailabl e Reason for Visit * Reason Comments Outpatient Testing Encounter Details Date Type Department Care Team (Late st Contact Info) Description 10/22/2023 9:40 AM EDT Laboratory Laboratory, [facility] [address] [facility] [place] [phone] [facility] [address] [facility] [place] [address] Supervision of normal first , antepartum; Elevated blood pressure, situational; [employer] Other*[id number] Allergies No known active allergiesdocumented as of this encounter (statuses as of 10/22/2023) Medications Medication Sig Dispensed Refills Start Date End Date Status /Iron Oral Tablet Take by mouth. 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 Never true 05/17/2023 [place] Depression Scale Answer Date Recorded [place] Depression Scale Total 2 05/20/2023 The thought [...] on file documented as of this encounter Plan of Treatment Upcoming Encounters Date Type Department Care Team (Late st Contact Info) Description 10/23/2023 4:45 PM EDT Nurse Only [facility] [address] [place] [address] Gw, Nurse Obgyn Injection [address] [facility] [place] [address] 10/30/2023 2:30 PM EDT Pharmacy Pharmacy, [place] [address] [place] [address] Clinic, Anemia [address] [place] [address] 11/01/2023 1:30 PM EDT Hem/Onc Treatment Hematology/Oncology Treatment, [place] [address] [place] [phone] Anita, Chair 4 Hem Onc Scenery [address] [place] [address] 11/05/2023 4:15 PM EDT Office Visit Gynecology/Obstetrics [facility] [address] [facility] [place] [address] Nuno Phelps, [facility] [address] [place] [address] 11/19/2023 8:00 AM EDT Office Visit Gynecology/Obstetrics [facility] [address] [facility] [place] [address] Rosalie Dykes CRNP [address] [place] [address] Pending Results Name Type Priority Associated Diagnoses Date /Time HEPATIC FUNCTION PANEL Lab Routine Supervision of normal first , antepartum Elevated blood pressure, situational 10/22/2023 9:23 AM EDT CREATININE Lab Routine Supervision of normal first , antepartum Elevated blood pressure, situational 10/22/2023 9:23 AM EDT CBC Lab Routine Supervision of normal first , antepartum Elevated blood pressure, situational 10/22/2023 9:23 AM EDT MYCODE INITIAL ADULT Lab Routine [employer] Other*[id number] 10/22/2023 9:23 AM EDT MYCODE INITIAL ADULT-PINK Lab Routine [employer] Other*[id number] 10/22/2023 9:23 AM EDT MYCODE SST1 Lab Routine [employer] Other*[id number] 10/22/2023 9:23 AM EDT MYCODE SST2 Lab Routine [employer] Other*[id number] 10/22/2023 9:23 AM EDT Health Maintenance Due Date Last Done Comments Depression Screening 2002 COVID-19 Vaccine ( season) 2022 04/20/2020, 03/30/2020 Influenza Vaccine (FLU shot) (#1) 2023 01/28/2023, 01/08/2018, 01/31/2014 GFR 09/19/2024 09/20/2023 Pap Smear 05/20/2026 05/20/2023 Cervical Cancer Screening 05/20/2028 HPV/Co-Test 05/20/2028 05/20/2023 DTaP,Tdap,and Td Vaccines (8 - Td or Tdap) 10/07/2033 10/08/2023, 09/06/2008, 11/04/1995, Additional history exists Hepatitis B Vaccine Completed 02/09/1993, 08/10/1992, 06/30/1992 HIV Screening Completed 05/20/2023 Hepatitis C Screening Completed 05/20/2023 , 05/20/2023, 05/20/2023 HPV (Gardasil) Vaccine Aged Out No lo [...] as of this encounter Visit Diagnoses Diagnosis Supervision of normal first , antepartum Elevated blood pressure, situational Elevated blood pressure reading without diagnosis of hypertension [employer] Other*[id number] documented in this encounter
--- OUTSIDE RECORDS SUMMARY | 2023-11-06 03:24 | External Medical Summary | Summary of Care ---
Author Name Unknown Organization [facility] Address [address] [place] [address] Phone [phone] Care Team Providers Care Assembly Stock Supervisor Name Role Phone Unavailable Primary Care Provider Unavailabl e Reason for Referral * Evaluate & Treat - Unlimited Visits (Within 10 days (routine)) - Authorized Specialty Diagnoses / Procedures Referred By Franc t Referred To Contact Obstetrics/Gynecology / Maternal Medicine Diagnoses Gestational hypertension without significant proteinuria in third trimester Yuri Morin CRNP [address] [employer] [place] [address] Referral ID Status Reason Start Date Expiration Date Visits Requested Visits Authorized [id number] Authorized Specialty Services Required 10/24/2023 999 999 [...] Gynecology/Obstetrics Shital Louises [address] [place] [address] Yuri Morin CRNP [address] [place] [address] Allergies No known active allergiesdocumented as of [...] money to get more. 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 She states she wants to see if possible due to the far travel. Patient advised that we do not typically recommend this, unless it would be another [facility] location. But Advised I would discuss other options with the provider. Please review/advise if patient could have some NSTs done at outside location or if recommend BPP Instead? She states it will be very hard for her travel here twice a week with her working in [place], [place] 3 days a week also. * [...] 2x/week NSTs. Will place a referral to [facility], they will want to do a growth [...] Office Visit Gynecology/Obstetrics Shital Berg [address] [place] [address] Arti Porras PA-C [address] [place] [address] Debra Berg Stress Tests Paulino [address] [place] [address] 10/30/2023 2:30 PM EDT Pharmacy Pharmacy, [place] [address] [place] [address] Clinic, Anemia [address] [place] [address] 11/01/2023 1:30 PM EDT Hem/Onc Treatment Hematology/Oncology Treatment, [place] [address] [place] [address] Anita, Chair 4 Hem Onc Scenery [address] [place] [address] 11/05/2023 4:15 PM EDT Office Visit Gynecology/Obstetrics Shital Berg [address] [place] [address] Nuno Phelps, [place] [address] [facility] [place] [address] 11/19/2023 8:00 AM EDT Office Visit Gynecology/Obstetrics Shital Berg [address] [place] [address] Rosalie Dykes CRNP [address] [place] [address] Scheduled Orders Name Type Priority Associated Diagnoses [...]
--- OUTSIDE RECORDS SUMMARY | 2023-11-06 03:24 | External Medical Summary | Summary of Care ---
Author Name Unknown Organization [facility] Address [address] [place] [address] Phone [phone] Care Team Providers Care Warper Creeler Name Role Phone Unavailable Primary Care Provider Unavailabl e Reason for Referral * Evaluate & Treat - Unlimited Visits (Within 10 days (routine)) - Authorized Specialty Diagnoses / Procedures Referred By Franc t Referred To Contact Obstetrics/Gynecology / Maternal Medicine Diagnoses Gestational hypertension without significant proteinuria in third trimester Yuri Morin CRNP [address] [place] [address] Referral ID Status Reason Start Date Expiration Date Visits Requested Visits Authorized [id number] Authorized Specialty Services Required 10/24/2023 999 999 [...] Gynecology/Obstetrics Shital Louises [address] [place] [address] Yuri Morin CRNP [address] [place] [address] Allergies No known active allergiesdocumented as of [...] money to get more. 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 She states she wants to see if possible due to the far travel. Patient advised that we do not typically recommend this, unless it would be another [facility] location. But Advised I would discuss other options with the provider. Please review/advise if patient could have some NSTs done at outside location or if recommend BPP Instead? She states it will be very hard for her travel here twice a week with her working in [place] 3 days a week also. * [...] 2x/week NSTs. Will place a referral to [facility], they will want to do a growth [...] Gynecology/Obstetrics Shital Berg [address] [place] [address] Arti Porras PA-C [address] [place] [address] [place], Non Stress Tests Paulino [address] [place] [address] 10/30/2023 2:30 PM EDT Pharmacy Pharmacy, [place] [address] [place], [place] [address] Clinic, [facility] [address] [place] [address] 11/01/2023 1:30 PM EDT Hem/Onc Treatment Hematology/Oncology Treatment, [address] [address] Anita, Chair 4 Hem Onc Scene [address] [place] [address] 11/05/2023 4:15 PM EDT Office Visit Gynecology/Obstetrics Shital Berg [address] [place] [address] Nuno Phelps, ALEXANDER [address] [place] [address] 11/19/2023 8:00 AM EDT Office Visit Gynecology/Obstetrics Shital Berg [address] [place] [address] Rosalie Dykes CRNP [address] [place] [address] Scheduled Orders Name Type Priority Associated Diagnoses [...]
--- OUTSIDE RECORDS SUMMARY | 2023-11-06 03:24 | External Medical Summary | Summary of Care ---
Author Name Unknown Organization [facility] Address [address] [place] [address] Phone [phone] Care Team Providers Care Substation Superintendent Name Role Phone Unavailable Primary Care Provider Unavailabl e Reason for Referral * Evaluate & Treat - Unlimited Visits (Within 10 days (routine)) - Authorized Specialty Diagnoses / Procedures Referred By Franc t Referred To Contact Obstetrics/Gynecology / Maternal Medicine Diagnoses Gestational hypertension without significant proteinuria in third trimester Yuri Morin CRNP [email or web address] [place] [address] Referral ID Status Reason Start Date Expiration Date Visits Requested Visits Authorized [id number] Authorized Specialty Services Required 10/24/2023 999 999 [...] Gynecology/Obstetrics Shital Louises [address] [place] [address] Yuri Morin CRNP [address] [place] [address] Allergies No known active allergiesdocumented as of [...] money to get more. 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 She states she wants to see if possible due to the far travel. Patient advised that we do not typically recommend this, unless it would be another [facility] location. But Advised I would discuss other options with the provider. Please review/advise if patient could have some NSTs done at outside location or if recommend BPP Instead? She states it will be very hard for her travel here twice a week with her working in [place] 3 days a week also. * [...] Description 10/29/2023 1:45 PM EDT Imaging Radiology [facility] 132 [facility] [place] [address] 11/01/2023 1:30 PM EDT Hem/Onc Treatment Hematology/Oncology Treatment, [place] [address] [facility] [phone] Anita, Chair 4 Hem Onc [address] [address] 11/04/2023 2:30 PM EDT Pharmacy Pharmacy, [address] [place] [address] Clinic, Anemia [address] [place] [address] 11/05/2023 3:00 PM EDT Imaging Radiology [facility] [address] [facility] [place] [address] 11/05/2023 4:15 PM EDT Office Visit Gynecology/Obstetrics [facility] [address] [place] [address] Nuno Phelps, [facility] [address] [place] [address] 11/07/2023 4:15 PM EDT Telemedicine Waterm[facility] Obstetric [facility] [address] [place] [phone] Stephanie Hall CRNP [address] [place] [address] 11/19/2023 8:00 AM EDT Office Visit Gynecology/Obstetrics [facility] [address] [facility] [place] [address] Rosalie Dykes CRNP [address] [place] [address] 11/19/2023 8:30 AM EDT Office Visit Watermaster Obstetrics [facility], [place] [address] [place] [address] Kasye Condon DO [address] [place] [address] 11/19/2023 8:30 AM EDT Imaging Radiology [facility] [address] [place] [address] Scheduled Orders Name Type Priority Associated Diagnoses [...]
--- OUTSIDE RECORDS SUMMARY | 2023-11-06 03:24 | External Medical Summary ---
Author Name Unknown Address Unknown Organization K0G:[facility] [place] 57-10 - [address] [place] [address] Laboratory Report Ordering Provider Test Date Status RASHEEDA WELCH 10/22/2023 09:23:24 Final Observation Date Value Abnormality Reference (Units ) Status WBC, Total 10/22/2023 09:23:24 11.27 Above high normal 4 .00-10.80 (K/uL) Final RBC 10/22/2023 09:23:24 4.19 3.85-5.15 (M/uL) Final Hemoglobin 10/22/2023 09:23:24 10.2 Below low normal 12 .0-15.3 (g/dL) Final HCT 10/22/2023 09:23:24 32.7 Below low normal 36. 0-45.2 (%) Final MCV 10/22/2023 09:23:24 78.0 81.5-97.5 (fL) Final MCH 10/22/2023 09:23:24 24.3 27.0-34.0 (pg) Final MCHC 10/22/2023 09:23:24 31.2 32.0-36.0 (g/dL) Final RDW 10/22/2023 09:23:24 14.6 11.5-15.5 (%) Final Platelets 10/22/2023 09:23:24 159 140-400 (K /uL) Final MPV 10/22/2023 09:23:24 11.5 6.6-11.1 ( fL) Final Performing Location [facility] 57-1 0 - [address] [facility] [place] [address]
--- OUTSIDE RECORDS SUMMARY | 2023-11-06 03:24 | External Medical Summary | Summary of Care ---
Author Name Unknown Organization [facility] Address [address] [place] [address] Phone [phone] Care Team Providers Care Vp Scientific Affairs Name Role Phone Unavailable Primary Care Provider Unavailabl e Reason for Visit * Reason Onset Date Comments MyCode Consent 10/22/2023 Encounter Details Date Type Department Care Team (Late st Contact Info) Description 10/22/2023 Orders Only Outcomes Research Department [address] [place] [address] Jenn Chan CHRA MyCode Research Other*[id number]* Allergies No known active allergiesdocumented as of [...] money to get more. Never true 05/17/2023 [place] Depression Scale Answer Date Recorded [place] Depression Scale Total 2 05/20/2023 The thought [...] on file documented as of this encounter Progress Notes * Jenn Chan CHRA - 10/22/2023 9:10 AM EDT MyCode Consent Documentation Bela Dave provided consent/authorization to participate in the MyCode Project. documented in this encounter Plan of Treatment Upcoming Encounters Date Type Department Care Team (Latest Contact Info) Description 10/22/2023 9:40 AM EDT [facility] [address] [place] [phone] [facility] [address] [place] [address] Supervision of normal first , antepartum; Elevated blood pressure, situational; MyCode Research Other*[id number] 10/23/2023 4:45 PM EDT Nurse Only [facility] [address] [place] [address] Gw, Nurse Obgyn Injection [address] [place] [address] 10/30/2023 2:30 PM EDT Pharmacy Pharmacy, [place] [address] [place] [address] Clinic, Anemia [address] [place] [address] 11/01/2023 1:30 PM EDT Hem/Onc Treatment Hematology/Oncology Treatment, [place] [address] [facility] [place] [address] Anita, Chair 4 Hem Onc Scenery [address] [place] [facility] [address] 11/05/2023 4:15 PM EDT Office Visit Gynecology/Obstetri [facility] [address] [place] [address] Nuno Phelps, [facility] [address] [place] [address] 11/19/2023 8:00 AM EDT Office Visit Gynecology/Obstetri [facility] [address] [facility] [address] Rosalie Dykes CRNP [address] [facility] [address] Pending Results Name Type Priority Associated Diagnoses Date /Time MYCODE INITIAL ADULT Lab Routine MyCode Research Other*[id number] 10/22/2023 9:23 AM EDT Scheduled Orders Name Type Priority Associated Diagnoses Orde r Schedule MYCODE INITIAL ADULT Lab Routine MyCode Research Other*[id number] Expected: 10/22/2023 (Approximate), Expires: 11/10/2024 Health Maintenance Due Date Last Done Comments [...] as of this encounter Visit Diagnoses Diagnosis MyCode Research Other*[id number]- Primary Supervision of normal first , antepartum Elevated blood pressure, situational Elevated blood pressure reading without diagnosis of hypertension MyCode Research Other*[id number] documented in this encounter
--- OUTSIDE RECORDS SUMMARY | 2023-11-06 03:24 | External Medical Summary | Summary of Care ---
Author Name Unknown Organization [facility] Address [address] [place] [address] Phone [phone] Care Team Providers Care Proofer Name Role Phone Unavailable Primary Care Provider Unavailabl e Reason for Referral * Evaluate & Treat - Unlimited Visits (Within 10 days (routine)) - Authorized Specialty Diagnoses / Procedures Referred By Franc t Referred To Contact Obstetrics/Gynecology / Maternal Medicine Diagnoses Gestational hypertension without significant proteinuria in third trimester Trina Morin CRNP [address] [place] [address] Referral ID Status Reason Start Date Expiration Date Visits Requested Visits Authorized [id number] Authorized Specialty Services Required 10/24/2023 999 999 [...] Gynecology/Obstetrics [facility] Louises [address] [place] [address] Trina Morin CRNP [address] [place] [address] Allergies No known active allergiesdocumented as of [...] money to get more. Never true 05/17/2023 [place] Depression Scale Answer Date Recorded [place] Depression Scale Total 2 05/20/2023 The thought [...] encounter Miscellaneous Notes * Addendum Note - Nataliya Ba LPN [...] order for BPP? * Telephone Encounter - Trina Morin CRNP - 10/24/2023 10:41 AM EDT Would advise at least a weekly BPP and weekly BP check/provider visit. CARMELO Naylor * Telephone Encounter - Thu Gallo RN - 10/24/2023 10:22 AM EDT Patient calling back in. 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 She states she wants to see if possible due to the far travel. Patient advised that we do not typically recommend this, unless it would be another [facility] location. But Advised I would discuss other options with the provider. Please review/advise if patient could have some NSTs done at outside location or if recommend BPP Instead? She states it will be very hard for her travel here twice a week with her working in [place], [place] 3 days a week also. * [...] 2x/week NSTs. Will place a referral to [facility], they will want to do a [...] 10/25/2023 3:30 PM EDT Office Visit Gynecology/Obstetrics [facility] [place] [address] Arti Porras PA-C [address] [place] [address] Debra Berg Stress Tests [facility] [address] [place] [address] 10/30/2023 2:30 PM EDT Pharmacy Pharmacy, [place] [address] [place] [address] Clinic, Anemia [address] [place], [place] [address] 11/01/2023 1:30 PM EDT Hem/Onc Treatment Hematology/Oncology Treatment, [place] [address] [place] [address] Anita, Chair 4 Hem Onc Scenery [address] [place] [address] 11/05/2023 4:15 PM EDT Office Visit Gynecology/Obstetrics [facility] [address] [place] [address] Nuno Phelps, [address] [place] [address] 11/19/2023 8:00 AM EDT Office Visit Gynecology/Obstetrics [facility] [address] [place] [address] Rosalie Dykes CRNP [address] [address] Scheduled Orders Name Type Priority Associated Diagnoses [...]
--- OUTSIDE RECORDS SUMMARY | 2023-11-06 03:24 | External Medical Summary | Summary of Care ---
Author Name Unknown Organization [facility] Address [address] [place] [address] Phone [phone] Care Team Providers Care Global Vp Creative + Content Marketing Name Role Phone Unavailable Primary Care Provider Unavailabl e Reason for Referral * Evaluate & Treat - Unlimited Visits (Within 10 days (routine)) - Authorized Specialty Diagnoses / Procedures Referred By Franc t Referred To Contact Obstetrics/Gynecology / Maternal Medicine Diagnoses Gestational hypertension without significant proteinuria in third trimester Trina Morin CRNP [address] [place] [address] Referral ID Status Reason Start Date Expiration Date Visits Requested Visits Authorized [id number] Authorized Specialty Services Required 10/24/2023 999 999 [...] Gynecology/Obstetrics [facility] [address] [place] [address] Trina Morin CRNP [address] [place] [address] Allergies No known active allergiesdocumented as of [...] money to get more. Never true 05/17/2023 [place] Depression Scale Answer Date Recorded [place] Depression Scale Total 2 05/20/2023 The thought [...] encounter Miscellaneous Notes * Telephone Encounter - Violeta Ba LPN - 10/24/2023 8:55 AM EDT Spoke with pt she verbalized understanding. Appt made for NST only tomorrow and pt will schedule tomorrow for next weeks nst * Telephone Encounter - Trina Morin CRNP - 10/24/2023 8:32 AM EDT Diagnosed with GHTN based on BPs. Needs to start 2x/week NSTs. Will place a referral to [facility], they will want to do a [...] 3:30 PM EDT Office Visit Gynecology/Obstetrics [facility] [address] [place] [address] Arti Porras PA-C [address] [place] [address] Berg, Non Stress Tests Paulino [address] [place] [address] 10/30/2023 2:30 PM EDT Pharmacy Pharmacy, [place] [address] [place] [address] Clinic, Anemia [address] [place], [place] [address] 11/01/2023 1:30 PM EDT Hem/Onc Treatment Hematology/Oncology Treatment, [place] [address] [place] [address] Anita, Chair 4 Hem Onc Scenery [address] [place] [address] 11/05/2023 4:15 PM EDT Office Visit Gynecology/Obstetrics [facility] [address] [place] [address] Nuno Phelps, [place] [address] [place] [address] 11/19/2023 8:00 AM EDT Office Visit Gynecology/Obstetrics [facility] [address] [place] [address] Rosalie Dykes CRNP 132 [facility] [place] [address] Scheduled Orders Name Type Priority Associated Diagnoses [...]
--- OUTSIDE RECORDS SUMMARY | 2023-11-06 03:24 | External Medical Summary | Summary of Care ---
Author Name Unknown Organization [facility] Address [address] [place] [address] Phone [phone] Care Team Providers Care Wet Pan Mixer Name Role Phone Unavailable Primary Care Provider Unavailabl e Reason for Referral * Evaluate & Treat - Unlimited Visits (Within 10 days (routine)) - Authorized Specialty Diagnoses / Procedures Referred By Franc t Referred To Contact Obstetrics/Gynecology / Maternal Medicine Diagnoses Gestational hypertension without significant proteinuria in third trimester Trina Morin CRNP [address] [place] [address] Referral ID Status Reason Start Date Expiration Date Visits Requested Visits Authorized [id number] Authorized Specialty Services Required 10/24/2023 999 999 [...] Gynecology/Obstetrics [facility] [address] [place] [address] Trina Morin CRNP [address] [place] [address] Allergies No known active allergiesdocumented as of [...] money to get more. 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 She states she wants to see if possible due to the far travel. Patient advised that we do not typically recommend this, unless it would be another [facility] location. But Advised I would discuss other options with the provider. Please review/advise if patient could have some NSTs done at outside location or if recommend BPP Instead? She states it will be very hard for her travel here twice a week with her working in [place], [place] 3 days a week also. * [...] Gynecology/Obstetrics [facility] [address] [place] [address] Arti Porras PA-C [address] [place] [address] Debra Berg Stress Tests [facility] [address] [place] [address] 10/30/2023 2:30 PM EDT Pharmacy Pharmacy, [place] [address] [place], [place] [phone] Clinic, Anemia [address] [place], [place] [address] 11/01/2023 1:30 PM EDT Hem/Onc Treatment Hematology/Oncology Treatment, [place] [address] [place], [place] [address] Anita, Chair 4 Hem Onc Scenery [address] [place], [place] [address] 11/05/2023 4:15 PM EDT Office Visit [facility] [address] [facility] [place] [address] Nuno Phelps, [place]IL[place] [address] [place] [address] 11/19/2023 8:00 AM EDT Office [facility] [address] [facility] [place] [address] Rosalie Dykes CRNP [address] [place] [address] Scheduled Orders Name Type Priority Associated Diagnoses [...]
--- OUTSIDE RECORDS SUMMARY | 2023-11-06 03:24 | External Medical Summary ---
Author Name Unknown Address Unknown Organization K[facility] [address] [place] [address] Laboratory Report Ordering Provider Test Date Status YURIRASHEEDA 10/22/2023 09:23:24 Final Observation Date Value Abnormality Reference (Units ) Status Creatinine 10/22/2023 09:23:24 0.7 0.5-1.0 (mg/dL) Final Glomerular filtration rate/1.73 sq M.predicted [Volume Rate/Area] in Serum, Plasma or Blood by Creatinine-based formula (CKD-EPI) 10/22/2023 09:23:24 >90 >=60 (mL/min) Final eGFR is calculated based on the CKD-EPI 2020 equation. [facility] [place] [address]
--- OUTSIDE RECORDS SUMMARY | 2023-11-06 03:24 | External Medical Summary | Summary of Care ---
Author Name Unknown Organization [facility] Address [address] [facility] [place] [address] Phone [phone] Care Team Providers Care Civil Service Worker Name Role Phone Unavailable Primary Care Provider Unavailabl e Reason for Visit * Reason Comments Return Visit Encounter Details Date Type Department Care Team (Late st Contact Info) Description 10/22/2023 8:45 AM EDT Office Visit Gynecology/Obstetric s [facility] [address] [place] [address] BackTrina lea CRNP [address] [place] [address] Supervision of normal first , antepartum*; Obesity, Class II, BMI 35-39.9; Antepartum anemia complicating ; Elevated blood pressure, situational Allergies No known active allergiesdocumented as of [...] at [facility] Supervision of normal first , anteradhau m 05/20/2023 Obesity, Class II, BMI 35-39.9 [...] money to get more. Never true 05/17/2023 [place] Depression Scale Answer Date Recorded [place] Depression Scale Total 2 05/20/2023 The thought [...] 05/17/2023 Does the household have a re lar source of income? (Household - for ages [...] Sign Reading Time Taken Comments Blood Pressure 140/90 10/22/2023 8:38 AM EDT Pulse - - Temperature - - Respiratory Rate - - Oxygen Saturation - - Inhaled Oxygen Concentration - - Weight 103 kg (227 lb) 10/22/2023 8:38 AM EDT Height 160 cm (5' 3") 10/22/2023 8:38 AM EDT Body Mass Index 40.21 10/22/2023 8:38 AM EDT documented in this encounter Progress Notes * Trina Morin CRNP - 10/22/2023 8:41 AM EDT 33w0d Good movement. Denies ctx, leaking, bleeding. Scheduled for iron infusion. Growth u/s today: 29th %ile for EFW, vertex, MICHAEL 12.2 cm, HR 159. Some mild HAs over last few days, Tylenol helps. BP 140/90, trace proteinuria. Denies vision changes, abdominal pain. Will check preE labs today, pt to return tomorrow for BP check (offered later today but unable to).Unable to come until 1700 due to work. Discussed gestational htn vs preE diagnoses. Aware if either are diagnosed, earlier delivery would be advised, with goal of getting to 37 weeks as long as mother and baby are stable. Start checking BP at home, pt has a cuff. Call triage with systolic >/=160, diastolic >/=100,worsening ANTONY, vision changes, epigastric/RUQ pain, decreased FM, abdominal pain, bleeding/leaking. Provided with labor instructions/triage phone #. ASSESSMENT assessment with Non-stress Test completed on 10/22/2023 at 33 weeks gestation for indication of elevated BP heart baseline: 140 bpm Variability: Moderate Decelerations: absent Accelerations: present Contractions: None NST start time: 844 NST stop time: 910 NST strip reviewed, interpreted, and approved by OB providerTrina CRNP . NST strip stored in clinic storage file CRAMELO Naylor * Violeta Ba LPN - 10/22/2023 8:38 AM EDT 33w0d Doing iron infusion 10/31 documented in this encounter Nursing Notes * Violeta Ba LPN - 10/22/2023 8:31 AM EDT 33w0d Growth 03.gm 29% Michael 12.2 Vertex HR 159 documented in this encounter Plan of Treatment Upcoming Encounters Date Type Department Care Team (Late st Contact Info) Description 10/23/2023 4:45 PM EDT Nurse [facility] [address] [place] [address] Gw, Nurse Obgyn Injection [address] [place] [address] 10/30/2023 2:30 PM EDT Pharmacy Pharmacy, [place] [address] [place] [address] Clinic, Anemia [address] [place] [facility] [place] [address] 11/01/2023 1:30 PM EDT Hem/Onc Treatment Hematology/Oncology Treatment, [place] [address] [place] [address] Anita, Chair 4 Hem Onc Scenery [address] [place] [address] 11/05/2023 4:15 PM EDT Office Visit Gynecology/Obstetrics [facility] [address] Nuno Phelps CNM [address] [facility] [address] 11/19/2023 8:00 AM EDT Office Visit Gynecology/Obstetrics [facility] [address] Rosalie Dykes CRNP [facility] [address] Pending Results Name Type Priority Associated Diagnoses Date /Time PROTEIN/ CREATININE RATIO, URINE Lab Routine Supervision of normal first , antepartum Elevated blood pressure, situational 10/22/2023 8:46 AM EDT HEPATIC FUNCTION PANEL Lab Routine Supervision of normal first , antepartum Elevated blood pressure, situational 10/22/2023 9:23 AM EDT CREATININE Lab Routine Supervision of normal first , antepartum Elevated blood pressure, situational 10/22/2023 9:23 AM EDT CBC Lab Routine Supervision of normal first , antepartum Elevated blood pressure, situational 10/22/2023 9:23 AM EDT Scheduled Orders Name Type Priority Associated Diagnoses Orde r Schedule PROTEIN/ CREATININE RATIO, URINE Lab Routine Supervision of normal first , antepartum Elevated blood pressure, situational Expected: 10/22/2023 (Approximate), Expires: 10/21/2024 HEPATIC FUNCTION PANEL Lab Routine Supervision of normal first , antepartum Elevated blood pressure, situational Expected: 10/22/2023 (Approximate), Expires: 10/21/2024 CREATININE Lab Routine Supervision of normal first , antepartum Elevated blood pressure, situational Expected: 10/22/2023 (Approximate), Expires: 10/21/2024 CBC Lab Routine Supervision of normal first , antepartum Elevated blood pressure, situational Expected: 10/22/2023 (Approximate), Expires: 10/21/2024 Health Maintenance Due Date Last Done Comments [...] Diagnoses Diagnosis Supervision of normal first , antepartum- Primary Obesity, Class II, BMI 35-39.9 Morbid obesity Antepartum anemia complicating Anemia, antepartum Elevated blood pressure, situational Elevated blood pressure reading without diagnosis of hypertension documented in this encounter
--- OUTSIDE RECORDS SUMMARY | 2023-11-06 03:24 | External Medical Summary | Summary of Care ---
Author Name Unknown Organization [facility] Address [address] [place] [address] Phone [phone] Care Team Providers Care Local City Driver Name Role Phone Unavailable Primary Care Provider Unavailabl e Reason for Referral * Evaluate & Treat - Unlimited Visits (Within 10 days (routine)) - Authorized Specialty Diagnoses / Procedures Referred By Franc t Referred To Contact Obstetrics/Gynecology / Maternal Medicine Diagnoses Gestational hypertension without significant proteinuria in third trimester Trina Morin CRNP [address] [employer] [place] [address] Referral ID Status Reason Start Date Expiration Date Visits Requested Visits Authorized [id number] Authorized Specialty Services Required 10/24/2023 999 999 [...] Gynecology/Obstetrics Sh[facility] Louises [address] [place] [address] Trina Morin CRNP [address] [place] [address] Allergies No known active allergiesdocumented as of [...] money to get more. 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 She states she wants to see if possible due to the far travel. Patient advised that we do not typically recommend this, unless it would be another [facility] location. But Advised I would discuss other options with the provider. Please review/advise if patient could have some NSTs done at outside location or if recommend BPP Instead? She states it will be very hard for her travel here twice a week with her working in [place], [place] 3 days a week also. * [...] Gynecology/Obstetrics [facility] [address] [place] [address] Arti Porras PA-C [address] [place] [address] Debra Berg Stress Tests Paul[place] [address] [place] [address] 10/30/2023 2:30 PM EDT Pharmacy Pharmacy, [place] [address] [place], [place] [phone] Clinic, Anemia [address] [place], [place] [phone] 11/01/2023 1:30 PM EDT Hem/Onc Treatment Hematology/Oncology Treatment, [place] [address] [place], [place] [address] Anita, Chair 4 Hem Onc Scenery [address] [place], [place] [address] 11/05/2023 4:15 PM EDT Office Visit Gynecology/Obstetrics [facility] [address] [facility] [place] [address] Nuno Phelps, [place]IL[place] [address] [place] [address] 11/19/2023 8:00 AM EDT Office [facility] [address] [facility] [place] [address] Rosalie Dykes CRNP [address] [place] [address] Scheduled Orders Name Type Priority Associated Diagnoses [...]
--- OUTSIDE RECORDS SUMMARY | 2023-11-06 03:24 | External Medical Summary | Summary of Care ---
Author Name Unknown Organization [facility] Address [address] [place] [address] Phone [phone] Care Team Providers Care Geospatial Extractor Analysis Name Role Phone Unavailable Primary Care Provider Unavailabl e Encounter Details Date Type Department Care Team (Late st Contact Info) Description 10/28/2023 Orders Only Outcomes Research Department [address] [place] [address] Lavonne Rodas CHRA MyCode Research Other*[id number] Allergies No known active allergiesdocumented as of [...] money to get more. Never true 05/17/2023 [place] Depression Scale Answer Date Recorded [place] Depression Scale Total 2 05/20/2023 The thought [...] Description 10/30/2023 2:30 PM EDT Pharmacy Pharmacy, [place] [address] [place] [address] Clinic, Anemia [address] [place] [address] 11/01/2023 1:30 PM EDT Hem/Onc Treatment Hematology/Oncology Treatment, [place] [address] [place] [address] Anita, Chair 4 Hem Onc Scenery 200 [place] [address] 11/05/2023 4:15 PM EDT Office Visit Gynecology/Obstetrics [facility] 132 [facility] [place] [address] Nuno Phelps CNM 400 [facility] [place] [address] 11/19/2023 8:00 AM EDT Office Visit Gynecology/Obstetrics [facility] [address] [place] [address] Rosalie Dykes CRNP [address] [place] [address] Scheduled Orders Name Type Priority Associated Diagnoses Orde r Schedule MYCODE SUBSEQUENT ADULT Lab Routine MyCode Research Other*[id number] Every 6 Months for 2 Occurrences starting 10/28/2023 until 11/16/2024 Health Maintenance Due Date Last Done Comments [...] this encounter Visit Diagnoses Diagnosis MyCode Research Other*[id number] documented in this encounter
--- OUTSIDE RECORDS SUMMARY | 2023-11-06 03:25 | External Medical Summary | Summary of Care ---
Author Name Unknown Organization [facility] Address [address] [place] [address] Phone [phone] Care Team Providers Care Shared Services Manager Name Role Phone Unavailable Primary Care Provider Unavailabl e Reason for Visit * Reason Comments Blood Management Program Encounter Details Date Type Department Care Team (Late st Contact Info) Description 09/24/2023 Documentation Patient Blood Management, [place] [address] [place] [address] Candelario Slater RN Allergies No known active allergiesdocumented as of this encounter (statuses as of 10/01/2023) Medications Medication Sig Dispensed Refills Start Date End Date Status /Iron Oral Tablet Take by mouth. Active documented as of this encounter (statuses as of 10/01/2023) Active Problems Problem Noted Date Diagnosed Date Antepartum anemia complicating 024 Overview: Anemia at [...] as of this encounter (statuses as of 10/01/2023) Social History Tobacco Use Types Packs/Day Years [...] money to get more. Never true 05/17/2023 [place] Depression Scale Answer Date Recorded [place] Depression Scale Total 2 05/20/2023 The thought [...] as of this encounter Progress Notes * Candelario Slater RN - 09/24/2023 1:44 PM EDT REFERRAL - Patient Blood Management Name: Bela Dave REQUESTING SERVICE: Paulino Berg OB REASON FOR REFERRAL: new evaluation outpatient, anemia in [place]: 12/10/23 Anemia Evaluation: Latest Reference Range & Units 09/20/23 16:21 HGB 12.0 - 15.3 g/dL 10.4 (L) HCT 36.0 - 45.2 % 33.1 (L) Iron 33 - 151 ug/dL 17 (L) Iron Binding Capacity 250 - 425 ug/dL 471 (H) Transferrin Saturation Percent 15 - 55 % 4 (L) Ferritin 13 - 150 ng/mL 7 (L) Immature Reticuloctye Fraction 2.5 - 20.6 % 35.5 (H) Reticulocyte Hemoglobin 29.7 - 37.4 pg 23.8 (L) (L): Data is abnormally low (H): Data is abnormally high Current Patient Medications: Medications that may impair hemostasis: none Medications that may impair iron absorption: none Patient Refused Blood Transfusion? (e.g. Protestant): no Possible Contributing Factors: iron deficiency Treatment Recommendations: IV iron per OB MTM guidelines. 09/23 - myG sent 09/30 - per myG messages patient desires PO iron trial. Instructed to take PO iron TID, agree with plan. Recommend recheck CBC in 2-3 weeks from start of PO trial. If repeat HGB < 11 please re-referto PBM. If HGB > 11 on recheck, continue PO iron. Thank you for allowing Blood Management to participate in the care of this patient. documented in this encounter Plan of Treatment Upcoming Encounters Date Type Department Care Team (Late st Contact Info) Description 10/08/2023 1:30 PM EDT Office Visit Gynecology/Obstetrics Shital Berg [address] [place] [address] Backer, CARMELO Velez [address] [place] [address] Health Maintenance Due Date Last Done Comments Depression Screening 2002 DTaP,Tdap,and Td Vaccines (7 - Td or Tdap) 09/06/2018 09/06/2008, 11/04/1995, 01/14/1992, Additional history exists COVID-19 Vaccine (2022- season) 2022 04/20/2020, 03/30/2020 Influenza Vaccine (FLU shot) (#1) 2023 01/28/2023, 01/08/2018, 01/31/2014 Pap Smear 05/20/2026 05/20/2023 Cervical Cancer Screening 05/20/2028 HPV/Co-Test 05/20/2028 05/20/2023 Hepatitis B Vaccine Completed 02/09/1993, 08/10/1992, 06/30/1992 [...]
--- OUTSIDE RECORDS SUMMARY | 2023-11-06 03:25 | External Medical Summary | Summary of Care ---
Author Name Unknown Organization [facility] Address [address] [facility] [address] Phone [phone] Care Team Providers Care Electrical Technician Instructor Name Role Phone Unavailable Primary Care Provider Unavailabl e Reason for Visit * Reason Onset Date Comments Appointment 09/20/2023 Encounter Details Date Type Department Care Team (Late st Contact Info) Description 09/20/2023 Telephone Gynecology/Obstetrics [facility] [address] [place] [address] Rosalie Dykes CRNP [address] [place] [address] Appointment Allergies No known active allergiesdocumented as of this encounter (statuses as of 09/20/2023) Medications Medication Sig Dispensed Refills Start Date End Date Status /Iron Oral Tablet Take by mouth. 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 Never true 05/17/2023 [place] Depression Scale Answer Date Recorded [place] Depression Scale Total 2 05/20/2023 The thought [...] encounter Miscellaneous Notes * Telephone Encounter - Veronica Weiner OSA - 09/20/2023 4:14 PM EDT Patient is scheduled for 10/07. This will be the 2 wk elise * Telephone Encounter - Lisa Dave OSA - 09/20/2023 4:08 PM EDT Pt needs two week return, unable to schedule. documented in this encounter Plan of Treatment Upcoming Encounters Date Type Department Care Team (Late st Contact Info) Description 10/08/2023 1:30 PM EDT [facility] [address] [place] [address] BackerTrina CRNP [address] [place] [address] Health Maintenance Due Date Last Done Comments Depression Screening 2002 DTaP,Tdap,and Td Vaccines (7 - Td or Tdap) 09/06/2018 09/06/2008, 11/04/1995, 01/14/1992, Additional history exists COVID-19 Vaccine ( season) 2022 04/20/2020, 03/30/2020 Pap Smear 05/20/2026 05/20/2023 Cervical Cancer Screening 05/20/2028 HPV/Co-Test 05/20/2028 05/20/2023 Hepatitis B Completed 02/09/1993, 07/23, 06/30/1992 Influenza Vaccine (FLU shot) Completed 08/2022, 01/08/2018, 01/31/2014 GARDASIL-HPV IMMUNIZATION SERIES Aged Out No longer eligible based on [...]
--- OUTSIDE RECORDS SUMMARY | 2023-11-06 03:25 | External Medical Summary | Summary of Care ---
Author Name Unknown Organization [facility] Address [address] [place] [address] Phone [phone] Care Team Providers Care Boat Deckhand Name Role Phone Unavailable Primary Care Provider Unavailabl e Reason for Referral * Evaluate & Treat - Unlimited Visits (Within 10 days (routine)) - Pending Review Specialty Diagnoses / Procedures Referred By Franc maher Referred To Contact Pharmacist / Pharmacy Diagnoses TAWNYA (iron deficiency anemia) Trina Morin CRNP [address] [place] [address] Referral ID Status Reason Start Date Expiration Date Visits Requested Visits Authorized [id number] Pending Review Specialty Services Required 10/08/2023 04/05/2024 99 99 Question Answer Referral Priority Within 10 days (routine) Where should this appointment be scheduled? [place] Referring Provider Role: Specialist Specialty: hospice nurse practitioner Reason for Referral: Anemia Comments Pharmacist Medication Therapy Management: Iron deficiency anemia Candelario Slater RN Reason for Visit * Reason Onset Date Comments Blood Management Program 10/08/2023 Encounter Details Date Type Department Care Team (Late st Contact Info) Description 10/08/2023 Telephone Patient Blood Management, [place] [address] [place] [address] Trina Morin CRNP [address] [place] [address] Blood Management Program Allergies No known active allergiesdocumented as of this encounter (statuses as of 10/21/2023) Medications Medication Sig Dispensed Refills Start Date End Date Status /Iron Oral Tablet Take by mouth. Active documented as of this encounter (statuses as of 10/21/2023) Active Problems Problem Noted Date Diagnosed Date Iron deficiency anemia 10/15/2023 Antepartum anemia complicating [...] as of this encounter (statuses as of 10/21/2023) Immunizations Name Administration Dates Next Due TDAP, [...] money to get more. Never true 05/17/2023 [place] Depression Scale Answer Date Recorded [place] Depression Scale Total 2 05/20/2023 The thought [...] encounter Miscellaneous Notes * Telephone Encounter - Mariza Simeon OSA - 10/21/2023 8:36 AM EDT Left message x2 and my g sent * Telephone Encounter - Mariza Simeon OSA - 10/18/2023 9:01 AM EDT Left message * Telephone Encounter - Fara Neal RN - 10/18/2023 8:10 AM EDT Scheduling: please call patient to schedule 3 hour appt "infed" (Trina Morin). Thanks! * Telephone Encounter - Fara Neal RN - 10/16/2023 10:12 AM EDT Order received for infed. [place] plan built and routed for signature. Prior auth not needed. Can send to scheduling once signed. * Telephone Encounter - Candelario Slater RN - 10/08/2023 2:04 PM EDT Recommend IV iron per OB MTM guidelines. Patient agreeable, prefers infusion at [facility]. documented in this encounter Plan of Treatment Upcoming Encounters Date Type Department Care Team (Late st Contact Info) Description 10/22/2023 7:45 AM EDT Imaging Radiology [facility] [address] [place] [address] 10/22/2023 8:45 AM EDT Office Visit Gynecology/Obstetrics [facility] [address] [place] [address] Backer, CARMELO Velez [address] [place] [address] 10/30/2023 2:30 PM EDT Pharmacy Pharmacy, [address] [place] [address] Clinic, An[place] [address] [place] [address] 11/05/2023 4:15 PM EDT Office Visit Gynecology/Obstetrics [facility] [address] [place] [address] Nuno Phelps, [facility] [address] [place] [address] Scheduled Referrals Name Type Priority Associated Diagnoses Orde r Schedule PHARMACIST MEDS THERAPY MGMT REFERRAL OP Referral Within 10 days (routine) TAWNYA (iron deficiency anemia) Ordered: 10/08/2023 Health Maintenance Due Date Last Done Comments [...] as of this encounter Visit Diagnoses Diagnosis TAWNYA (iron deficiency anemia)- Primary Iron deficiency anemia, unspecified documented in this encounter
--- OUTSIDE RECORDS SUMMARY | 2023-11-06 03:25 | External Medical Summary | Summary of Care ---
Author Name Unknown Organization [facility] Address [address] [place] [address] Phone [phone] Care Team Providers Care Construction Ironworker Helper Name Role Phone Unavailable Primary Care Provider Unavailabl e Reason for Visit * Reason Onset Date Comments Anemia Follow-Up 10/15/2023 * Evaluate & Treat - Unlimited Visits (Within 10 days (routine)) - Pending Review Specialty Diagnoses / Procedures Referred By Franc t Referred To Contact Pharmacist / Pharmacy Diagnoses TAWNYA (iron deficiency anemia) Trina Morin CRNP [address] [facility] [place] [address] Referral ID Status Reason Start Date Expiration Date Visits Requested Visits Authorized [id number] Pending Review Specialty Services Required 10/08/2023 04/05/2024 99 99 Encounter Details Date Type Department Care Team (Late st Contact Info) Description 10/15/2023 4:00 PM EDT Pharmacy Pharmacy, [place] [address] [place], [place] [id number] Clinic, An[facility] [address] [place], [place] [id number] Iron deficiency anemia, unspecified iron deficiency anemia type* Allergies No known active allergiesdocumented as of this encounter (statuses as of 10/15/2023) Medications Medication Sig Dispensed Refills Start Date End Date Status /Iron Oral Tablet Take by mouth. Active documented as of this encounter (statuses as of 10/15/2023) Active Problems Problem Noted Date Diagnosed Date [...] as of this encounter (statuses as of 10/15/2023) Immunizations Name Administration Dates Next Due TDAP, [...] money to get more. Never true 05/17/2023 [place] Depression Scale Answer Date Recorded [place] Depression Scale Total 2 05/20/2023 The thought [...] as of this encounter Progress Notes * Kala Myles, [facility] - 10/15/2023 4:01 PM EDT Patient Phone Numbers Patient referred by CARMELO Ortiz for evaluation of anemia by the Anemia Clinic. Called patient to introduce role/clinic and to review labs from 09/19. Hgb: 10.4 g/dL TSAT: 4 % Ferritin: 7 ng/mL GA: 32w0d Estimated Date of Delivery: 12/10/23 Hgb is below target range for the third trimester. Iron studies below target range. Patient reports feeling not bad and otherwise denies signs/symptoms of anemia. Oral iron replenishment inadequate or contraindicated. Patient qualifies for IV iron repletion. Based on patient's due date, there would be inadequate time to trial PO iron. Plan: Iron dextran (INFeD) 1000 mg IV x 1 dose. Orders placed and routed to appropriate parties at [facility]. Patient agreeable to intervention. Follow-up labs to be scheduled ~4-6 weeks after iron repletion completed if appropriate prior to delivery. Anemia Clinic will continue to follow. Thank you for allowing us to participate in the care of thispatient. Thanks, Kala Myles [facility] Clinical Pharmacist [facility] Anemia [facility] (P: [phone]) 10/15/2023 4:01 PM documented in this encounter Plan of Treatment Upcoming Encounters Date Type Department Care Team (Late st Contact Info) Description 10/22/2023 7:45 AM EDT Imaging Radiology [facility] 132 [facility] [place] [address] 10/22/2023 8:45 AM EDT Office Visit Gynecology/Obstetrics [facility] 132 [facility] [place] [address] Trina Morin CRNP 132 [facility] [place] [address] 10/30/2023 2:30 PM EDT Pharmacy Pharmacy, [place] [address] [place] [address] Clinic, An[place] [address] [place] [address] 11/05/2023 4:15 PM EDT Office Visit Gynecology/Obstetrics [facility] 132 [facility] [place] [address] Nuno Phelps CNM [address] [facility] [place] [address] Scheduled Referrals Name Type Priority Associated Diagnoses [...]
--- OUTSIDE RECORDS SUMMARY | 2023-11-06 03:25 | External Medical Summary | Summary of Care ---
Author Name Unknown Organization [facility] Address [address] [place] [address] Phone [phone] Care Team Providers Care Aoc Plans Intelligence Officer Chief Name Role Phone Unavailable Primary Care Provider Unavailabl e Reason for Referral * Evaluate & Treat - Unlimited Visits (Within 10 days (routine)) - Pending Review Specialty Diagnoses / Procedures Referred By Franc maher Referred To Contact Pharmacist / Pharmacy Diagnoses TAWNYA (iron deficiency anemia) Trina Morin CRNP [address] [place] [address] Referral ID Status Reason Start Date Expiration Date Visits Requested Visits Authorized [id number] Pending Review Specialty Services Required 10/08/2023 04/05/2024 99 99 Question Answer Referral Priority Within 10 days (routine) Where should this appointment be scheduled? [place]riele Referring Provider Role: Specialist Specialty: paper bag machine operator Reason for Referral: Anemia Comments Pharmacist Medication Therapy Management: Iron deficiency anemia Candelario Slater RN Reason for Visit * Reason Onset Date Comments Blood Management Program 10/08/2023 Encounter Details Date Type Department Care Team (Late st Contact Info) Description 10/08/2023 Telephone Patient Blood Management, [place] [address] [place] [address] Trina Morin CRNP [address] [place] [address] Blood Management Program Allergies No known active allergiesdocumented as of this encounter (statuses as of 10/18/2023) Medications Medication Sig Dispensed Refills Start Date End Date Status /Iron Oral Tablet Take by mouth. Active documented as of this encounter (statuses as of 10/18/2023) Active Problems Problem Noted Date Diagnosed Date [...] as of this encounter (statuses as of 10/18/2023) Immunizations Name Administration Dates Next Due TDAP, [...] money to get more. Never true 05/17/2023 [place] Depression Scale Answer Date Recorded [place] Depression Scale Total 2 05/20/2023 The thought [...] 10:12 AM EDT Order received for infed. [place] plan built and routed for signature. Prior auth not needed. Can send to scheduling once signed. * Telephone Encounter - Candelario Slater RN - 10/08/2023 2:04 PM EDT Recommend IV iron per OB MTM guidelines. Patient agreeable, prefers infusion at [facility]. documented in this encounter Plan of Treatment Upcoming Encounters Date Type Department Care Team (Late st Contact Info) Description 10/22/2023 7:45 AM EDT Imaging Radiology [facility] [address] [place] [address] 10/22/2023 8:45 AM EDT Office Visit Gynecology/Obstetrics [facility] 132 [facility] [place] [address] Patience, CARMELO Velez 132 [facility] [place] [address] 10/30/2023 2:30 PM EDT Pharmacy Pharmacy, [place] [address] [place] [address] Clinic, [facility] [address] [place] [address] 11/05/2023 4:15 PM EDT Office Visit Gynecology/Obstetrics [facility] [address] [place] [address] Nuno Phelps, [facility] [address] [place] [address] Scheduled Referrals Name Type [...]
--- OUTSIDE RECORDS SUMMARY | 2023-11-06 03:25 | External Medical Summary | Summary of Care ---
Author Name Unknown Organization [facility] Address [address] [place] [address] Phone [phone] Care Team Providers Care Roving Or Yarn Color Checker Name Role Phone Unavailable Primary Care Provider Unavailabl e Reason for Referral * Evaluate & Treat - Unlimited Visits (Within 10 days (routine)) - Pending Review Specialty Diagnoses / Procedures Referred By Franc maher Referred To Contact Pharmacist / Pharmacy Diagnoses TAWNYA (iron deficiency anemia) Trina Morin CRNP [address] [place] [address] Referral ID Status Reason Start Date Expiration Date Visits Requested Visits Authorized [id number] Pending Review Specialty Services Required 10/08/2023 04/05/2024 99 99 Question Answer Referral Priority Within 10 days (routine) Where should this appointment be scheduled? Gabriele Referring Provider Role: Specialist Specialty: sander operator Reason for Referral: Anemia Comments Pharmacist Medication Therapy Management: Iron deficiency anemia Candelario Slater RN Reason for Visit * Reason Onset Date Comments Blood Management Program 10/08/2023 Encounter Details Date Type Department Care Team (Late st Contact Info) Description 10/08/2023 Telephone Patient Blood Management, [place] [address] [place] [address] Trina Morin CRNP [address] [place] [address] Blood Management Program Allergies No known active allergiesdocumented as of this encounter (statuses as of 10/16/2023) Medications Medication Sig Dispensed Refills Start Date End Date Status /Iron Oral Tablet Take by mouth. Active documented as of this encounter (statuses as of 10/16/2023) Active Problems Problem Noted Date Diagnosed Date [...] as of this encounter (statuses as of 10/16/2023) Immunizations Name Administration Dates Next Due TDAP, [...] money to get more. Never true 05/17/2023 [place] Depression Scale Answer Date Recorded [place] Depression Scale Total 2 05/20/2023 The thought [...] encounter Miscellaneous Notes * Telephone Encounter - Fara Neal RN - 10/16/2023 10:12 AM EDT Order received for infed. [place] plan built and routed for signature. Prior auth not needed. Can send to scheduling once signed. * Telephone Encounter - Candelario Slater RN - 10/08/2023 2:04 PM EDT Recommend IV iron per OB MTM guidelines. Patient agreeable, prefers infusion at [facility]. documented in this encounter Plan of Treatment Upcoming Encounters Date Type Department Care Team (Late st Contact Info) Description 10/22/2023 7:45 AM EDT Imaging Radiology [facility] 132 [facility] [place] [address] 10/22/2023 8:45 AM EDT Office Visit Gynecology/[facility] [address] [facility] [place] [address] BackerTrina CRNP 132 [facility] [place] [address] 10/30/2023 2:30 PM EDT Pharmacy Pharmacy, [place] [address] [place] [address] Clinic, An[place] [address] [place] [address] 11/05/2023 4:15 PM EDT Office Visit Gynecology/Obstetrics [facility] [address] [facility] [place] [address] Nuno Phelps CNM [address] [facility] [place] [address] Scheduled Referrals Name Type Priority Associated Diagnoses [...]
--- OUTSIDE RECORDS SUMMARY | 2023-11-06 03:25 | External Medical Summary | Summary of Care ---
Author Name Unknown Organization [facility] Address [address] [facility] [place] [address] Phone [phone] Care Team Providers Care Perforator Loader Name Role Phone Unavailable Primary Care Provider Unavailabl e Encounter Details Date Type Department Care Team (Late st Contact Info) Description 10/16/2023 Orders Only Hematology/Oncology Treatment, [place] [address] [place] [address] Backer, CARMELO Velez [address] [facility] [address] Allergies No known active allergiesdocumented as of [...] money to get more. Never true 05/17/2023 [place] Depression Scale Answer Date Recorded [place] Depression Scale Total 2 05/20/2023 The thought [...] Description 10/22/2023 7:45 AM EDT Imaging Radiology [facility] 132 [facility] [place] [address] 10/22/2023 8:45 AM EDT Office Visit Gynecology/Obstetrics [facility] [address] [facility] [place] [address] Trina Morin CRNP 132 [facility] [place] [address] 10/30/2023 2:30 PM EDT Pharmacy Pharmacy, [place] [address] [place] [address] Clinic, [facility] [address] [place] [address] 11/05/2023 4:15 PM EDT Office Visit Gynecology/Obstetrics [facility] [address] [place] [address] Nuno Phelps, [place] [facility] [place] [address] Health Maintenance Due Date Last Done Comments Depression Screening 2002 COVID-19 Vaccine (3 - 2023-24 season) 2022 04/20/2020, 03/30/2020 Influenza Vaccine (FLU [...]
--- OUTSIDE RECORDS SUMMARY | 2023-11-06 03:25 | External Medical Summary | Summary of Care ---
Author Name Unknown Organization [facility] Address [address] [facility] [place] [address] Phone [phone] Care Team Providers Care Bible Teacher Name Role Phone Unavailable Primary Care Provider Unavailabl e Reason for Referral * Evaluate & Treat - Unlimited Visits (Within 10 days (routine)) Specialty Diagnoses / Procedures Referred By Franc maher Referred To Contact Pediatric Hematology/Oncology Rosalie Dykes CRNP [address] [place] [address] Referral ID Status Reason Start Date Expiration Date V isits Requested Visits Authorized Specialty Services Required Question Answer Referral Priority Within 10 days (routine) Where should this appointment be scheduled? [facility] Reason for Visit * Reason Onset Date Comments Abnormal Test Results 09/24/2023 Encounter Details Date Type Department Care Team (Late st Contact Info) Description 09/24/2023 Telephone Gynecology/Obstetrics [facility] [address] [place] [address] Rosalie Dykes CRNP [address] [place] [address] Abnormal Test Results Allergies No known active allergiesdocumented as of this encounter (statuses as of 09/24/2023) Medications Medication Sig Dispensed Refills Start Date End Date Status /Iron Oral Tablet Take by mouth. Active documented as of this encounter (statuses as of 09/24/2023) Active Problems Problem Noted Date Diagnosed Date [...] as of this encounter (statuses as of 09/24/2023) Social History Tobacco Use Types Packs/Day Years [...] money to get more. Never true 05/17/2023 [place] Depression Scale Answer Date Recorded [place] Depression Scale Total 2 05/20/2023 The thought [...] encounter Miscellaneous Notes * Telephone Encounter - Rosalie Dykes CRNP - 09/24/2023 12:57 PM EDT Order placed * Telephone Encounter - Marissa Nuñez LPN - 09/24/2023 12:51 PM EDT Pt aware. Agreeable to iv iron. * Telephone Encounter - Rosalie Dykes CRNP - 09/24/2023 12:41 PM EDT Please notify pt that she passed her glucola but she is anemic. Recommendation is IV iron infusions. Once notified, route back to me so I can sign order. documented in this encounter Plan of Treatment Upcoming Encounters Date Type Department Care Team (Late st Contact Info) Description 10/08/2023 1:30 PM EDT Office Visit Gynecology/Obstetrics Shital Berg [address] [place] [address] MarcoerTrina CRNP [address] [place] [address] Scheduled Referrals Name Type Priority Associated Diagnoses Orde r Schedule BLOOD MANAGEMENT REFERRAL Referral Within 10 days (routine) Antepartum anemia complicating Ordered: 09/24/2023 Health Maintenance Due Date Last Done Comments Depression Screening 2002 DTaP,Tdap,and Td Vaccines (7 - Td or Tdap) 09/06/2018 09/06/2008, 11/04/1995, 01/14/1992, Additional history exists COVID-19 Vaccine (2022- season) 2022 04/20/2020, 03/30/2020 Influenza Vaccine (FLU shot) (#1) 2023 01/28/2023, 01/08/2018, 01/31/2014 Pap Smear 05/20/2026 05/20/2023 Cervical Cancer Screening 05/20/2028 HPV/Co-Test 05/20/2028 05/20/2023 Hepatitis B Completed 02/09/1993, 07/23, 06/30/1992 GARDASIL-HPV IMMUNIZATION SERIES Aged Out No longer [...] as of this encounter Visit Diagnoses Diagnosis Antepartum anemia complicating - Primary Anemia, antepartum documented in this encounter
--- OUTSIDE RECORDS SUMMARY | 2023-11-06 03:25 | External Medical Summary ---
Author Name Unknown Address Unknown Organization K01:[facility] [place] [address] [place] [address] Laboratory Report Ordering Provider Test Date Status RASHEEDA WELCH 10/22/2023 08:46:55 Final Normal: <150 mg/ g creatinine
High: 150-500 mg/g creatinine
Very High: >500 mg/g creatinine
Nephrotic: >3000 mg/g creatinine Observation Date Value Abnormality Reference (Units ) Status Protein/Creatinine [Ratio] in Urine 10/22/2023 08:46:55 99 <150 (mg/g ) Final Protein, Urine 10/22/2023 08:46:55 9 (mg/dL) Final Creatinine, Urine 10/22/2023 08:46:55 91 (mg/dL) Final Performing Location [facility] [place] [address] [place] [address]
--- OUTSIDE RECORDS SUMMARY | 2023-11-06 03:25 | External Medical Summary | Summary of Care ---
Author Name Unknown Organization [facility] Address [address] [place] [address] Phone [phone] Care Team Providers Care Alloy Weigher Name Role Phone Unavailable Primary Care Provider Unavailabl e Reason for Referral * Evaluate & Treat - Unlimited Visits (Within 10 days (routine)) - Pending Review Specialty Diagnoses / Procedures Referred By Franc maher Referred To Contact Pharmacist / Pharmacy Diagnoses TAWNYA (iron deficiency anemia) Trina Morin CRNP [address] [place] [address] Referral ID Status Reason Start Date Expiration Date Visits Requested Visits Authorized [id number] Pending Review Specialty Services Required 10/08/2023 04/05/2024 99 99 Question Answer Referral Priority Within 10 days (routine) Where should this appointment be scheduled? Gabriele Referring Provider Role: Specialist Specialty: dye colorist formulator Reason for Referral: Anemia Comments Pharmacist Medication Therapy Management: Iron deficiency anemia Candelario Slater RN Reason for Visit * Reason Onset Date Comments Blood Management Program 10/08/2023 Encounter Details Date Type Department Care Team (Late st Contact Info) Description 10/08/2023 Telephone Patient Blood Management, [place] [address] [place] [address] Trina Morin CRNP [address] [place] [address] Blood Management Program Allergies No known active allergiesdocumented as of this encounter (statuses as of 10/17/2023) Medications Medication Sig Dispensed Refills Start Date End Date Status /Iron Oral Tablet Take by mouth. Active documented as of this encounter (statuses as of 10/17/2023) Active Problems Problem Noted Date Diagnosed Date [...] as of this encounter (statuses as of 10/17/2023) Immunizations Name Administration Dates Next Due TDAP, [...] money to get more. Never true 05/17/2023 [place] Depression Scale Answer Date Recorded [place] Depression Scale Total 2 05/20/2023 The thought [...] 10:12 AM EDT Order received for infed. [place] plan built and routed for signature. Prior auth not needed. Can send to scheduling once signed. * Telephone Encounter - Candelario Slater RN - 10/08/2023 2:04 PM EDT Recommend IV iron per OB MTM guidelines. Patient agreeable, prefers infusion at [facility]. documented in this encounter Plan of Treatment Upcoming Encounters Date Type Department Care Team (Late st Contact Info) Description 10/22/2023 7:45 AM EDT Imaging Radiology [facility] [address] [facility] [place] [address] 10/22/2023 8:45 AM EDT Office Visit Gynecology/Obstetrics [facility] [address] [facility] [place] [address] BackerTrina CRNP [address] [facility] [place] [address] 10/30/2023 2:30 PM EDT Pharmacy Pharmacy, [place] [address] [place] [address] Clinic, An[place] [address] [place] [address] 11/05/2023 4:15 PM EDT Office Visit Gynecology/Obstetrics [facility] [address] [facility] [place] [address] Nuno Phelps CNM [address] [facility] [place] [address] Scheduled Referrals Name Type Priority Associated Diagnoses [...]
--- OUTSIDE RECORDS SUMMARY | 2023-11-06 03:25 | External Medical Summary | Summary of Care ---
Author Name Unknown Organization [facility] Address [address] [place] [place] [address] Phone [phone] Care Team Providers Care Bottle Line Worker Name Role Phone Unavailable Primary Care Provider Unavailabl e Reason for Referral * Evaluate & Treat - Unlimited Visits (Within 10 days (routine)) Specialty Diagnoses / Procedures Referred By Franc maher Referred To Contact Pediatric Hematology/Oncology Trina Morin CRNP [address] [place] [address] Referral ID Status Reason Start Date Expiration Date V isits Requested Visits Authorized Specialty Services Required Question Answer Referral Priority Within 10 days (routine) Where should this appointment be scheduled? [facility] Reason for Visit * Reason Comments Return Visit Encounter Details Date Type Department Care Team (Late st Contact Info) Description 10/08/2023 1:30 PM EDT Office Visit Gynecology/Obstetric [facility] [address] [place] [address] Trina Morin CRNP [address] [place] [address] Supervision of normal first , antepartum*; Obesity, Class II, BMI 35-39.9; Antepartum anemia complicating ; Need for prophylactic vaccination with combined zwwnnvtbdy-vrvgtkl-ui rtussis (DTP) vaccine Allergies No known active allergiesdocumented as of this encounter (statuses as of 10/08/2023) Medications Medication Sig Dispensed Refills Start Date End Date Status /Iron Oral Tablet Take by mouth. Active documented as of this encounter (statuses as of 10/08/2023) Active Problems Problem Noted Date Diagnosed Date [...] as of this encounter (statuses as of 10/08/2023) Immunizations Name Administration Dates Next Due TDAP, [...] money to get more. Never true 05/17/2023 [place] Depression Scale Answer Date Recorded [place] Depression Scale Total 2 05/20/2023 The thought [...] No 05/17/2023 Does the household have a [facility] source of income? (Household - for ages [...] Sign Reading Time Taken Comments Blood Pressure 134/86 10/08/2023 1:18 PM EDT Pulse - - Temperature - - Respiratory Rate - - Oxygen Saturation - - Inhaled Oxygen Concentration - - Weight 103.4 kg (228 lb) 10/08/2023 1:18 PM EDT Height - - Body Mass Index 40.39 09/20/2023 3:50 PM EDT documented in this encounter Progress Notes * Trina Mroin CRNP - 10/08/2023 1:32 PM EDT 31w0d Good movement. No leaking, bleeding, ctx. Had GI side effects with oral iron; agreeable to scheduling iron infusions, new referral placed. Due for growth scan, will schedule. Normal fundal height today. Denies ANTONY, vision changes, epigastric pain, new edema. BP slightly up; neg proteinuria. Reviewed warning signs that warrant evaluation. Tdap administered. 2 week return CARMELO Naylor documented in this encounter Nursing Notes * Serenity Arora LPN - 10/08/2023 1:37 PM EDT Patient here for tdap injection. Patient doing well no complaints. Injection given IM as ordered. Patient tolerated well. Patient to follow up as directed. Patient instructed to call if any complications. Patient verbalized understanding of instructions given. Injection site: Left Deltoid Medication Source: Dispensed stock medication * Serenity Arora LPN - 10/08/2023 1:19 PM EDT 31w0d Denies vaginal bleeding/rom + movement Tdap today Discuss iron infusions documented in this encounter Plan of Treatment Upcoming Encounters Date Type Department Care Team (Late st Contact Info) Description 10/22/2023 7:45 AM EDT Imaging Radiology [facility] [address] [place] [address] 10/22/2023 8:45 AM EDT Office Visit Gynecology/Obstetrics [facility] [address] [place] [address] Trina Morin CRNP [address] [place] [address] 11/05/2023 4:15 PM EDT Office Visit Gynecology/Obstetrics [facility] [address] [place] [address] Nuno Phelps, ALEXANDER [address] [place] [id number] Scheduled Orders Name Type Priority Associated Diagnoses Orde r Schedule US PREG FOLLOW-UP EACH FETUS Medical Imaging Routine Supervision of normal first , antepartum Obesity, Class II, BMI 35-39.9 Expected: 10/08/2023 (Approximate), Expires: 11/07/2024 Scheduled Referrals Name Type Priority Associated Diagnoses Orde r Schedule BLOOD MANAGEMENT REFERRAL Referral Within 10 days (routine) Antepartum anemia complicating Ordered: 10/08/2023 Health Maintenance Due Date Last [...] Not on filedocumented as of this encounter Procedures Procedure Name Priority Date/Time Associated Diagnosis Comments URINALYSIS, POINT OF CARE (ENTER/EDIT) Routine 10/08/2023 Supervision of normal first , antepartum documented in this encounter Results * URINALYSIS, POINT OF CARE (ENTER/EDIT) (10/08/2023) Color, Urine Yellow Yellow or Light Yellow Clarity, Urine Clear Clear Glucose, Urine Negative Negative mg/dL Bilirubin, Urine Negative Negative Ketone, Urine Negative Negative mg/dL Specific [place], Urine 1.025 1.003 - 1.030 Blood, Urine Negative Negative pH, Urine 7.0 5.0 - 7.5 units Protein, Urine Negative Negative mg/dL Urobilinogen, Urine 0.2 0.2 - 1.0 mg/dL Nitrite, Urine Negative Negative Esterase, Urine Small Negative Urine 10/08/2023 Trina [facility] POINT O F CARE TEST ENTER/EDIT ORDERABLES documented in this encounter Visit Diagnoses Diagnosis Supervision of normal first , antepartum- Primary Obesity, Class II, BMI 35-39.9 Morbid obesity Antepartum anemia complicating Anemia, antepartum Need for prophylactic vaccination with combined vhhbortyxt-rkgkaki-endnkwovx (DTP) vaccine documented in this encounter
--- OUTSIDE RECORDS SUMMARY | 2023-11-06 03:25 | External Medical Summary | Summary of Care ---
Author Name Unknown Organization [facility] Address [address] [place] [address] Phone [phone] Care Team Providers Care Commercial Lawn Specialist Name Role Phone Unavailable Primary Care Provider Unavailabl e Reason for Visit * Reason Comments Blood Management Program Encounter Details Date Type Department Care Team (Late st Contact Info) Description 09/24/2023 Documentation Patient Blood Management, [place] [address] [place] [address] Candelario Slater RN Allergies No [...] money to get more. Never true 05/17/2023 [place] Depression Scale Answer Date Recorded [place] Depression Scale Total 2 05/20/2023 The thought [...] Progress Notes * Candelario Slater RN - 10/08/2023 2:03 PM EDT 10/07 - Patient unable to tolerate PO iron. Agreeable to IV iron. [place] to Scenery [place] willsubmit OB MTM. * Candelario Slater RN - 09/24/2023 1:44 [...] absorption: none Patient Refused Blood Transfusion? (e.g. Pentecostal): no Possible Contributing Factors: iron deficiency Treatment [...] Description 10/22/2023 7:45 AM EDT Imaging Radiology [facility] [address] [place] [address] 10/22/2023 8:45 AM EDT Office Visit Gynecology/Obstetrics [facility] [address] [place] [address] Trina Morin CRNP [address] [place] [address] 11/05/2023 4:15 PM EDT Office Visit Gynecology/Obstetrics [facility] [address] [place] [address] Nuno Phelps CNM [address] [place] [address] Health Maintenance Due Date Last Done Comments [...]
--- OUTSIDE RECORDS SUMMARY | 2023-11-06 03:25 | External Medical Summary | Summary of Care ---
Author Name Unknown Organization [facility] Address [address] [facility] [place] [address] Phone [phone] Care Team Providers Care Clinical Biostatistics Director Name Role Phone Unavailable Primary Care Provider Unavailabl e Encounter Details Date Type Department Care Team (Late st Contact Info) Description 10/15/2023 Orders Only Gynecology/Obstetrics [facility] [address] [place] [address] BackerTrina CRNP [address] [place] [address] Iron deficiency anemia, unspecified iron deficiency anemia [...] money to get more. Never true 05/17/2023 [place] Depression Scale Answer Date Recorded [place] Depression Scale Total 2 05/20/2023 The thought [...] Description 10/22/2023 7:45 AM EDT Imaging Radiology [facility] [address] [place] [address] 10/22/2023 8:45 AM EDT Office Visit Gynecology/Obstetrics [facility] [address] [place] [address] Trina Morin CRNP [address] [place] [address] 10/30/2023 2:30 PM EDT Pharmacy [facility] [place] [address] [facility] [address] Clinic, [facility] [address] [facility] [place] [address] 11/05/2023 4:15 PM EDT Office Visit Gynecology/Obstetrics [facility] [address] [place] [address] Nuno Phelps, AKILAH [address] [place] [address] Health Maintenance Due Date Last Done Comments Depression Screening 2002 COVID-19 Vaccine (24 season) 2022 04/20/2020, 03/30/2020 Influenza Vaccine (FLU [...]
--- OUTSIDE RECORDS SUMMARY | 2023-11-06 03:25 | External Medical Summary | Summary of Care ---
Author Name Unknown Organization [facility] Address [address] [place] [address] Phone [phone] Care Team Providers Care Electric Container Tester Name Role Phone Unavailable Primary Care Provider Unavailabl e Reason for Referral * Evaluate & Treat - Unlimited Visits (Within 10 days (routine)) - Pending Review Specialty Diagnoses / Procedures Referred By Franc maher Referred To Contact Pharmacist / Pharmacy Diagnoses TAWNYA (iron deficiency anemia) Trina Morin CRNP [address] [place] [address] Referral ID Status Reason Start Date Expiration Date Visits Requested Visits Authorized [id number] Pending Review Specialty Services Required 10/08/2023 04/05/2024 99 99 Question Answer Referral Priority Within 10 days (routine) Where should this appointment be scheduled? [facility] Referring Provider Role: Specialist Specialty: neonatal intensive care unit nurse Reason for Referral: Anemia Comments Pharmacist Medication Therapy Management: Iron deficiency anemia Candelario Slater RN Reason for Visit * Reason Onset Date Comments Blood Management Program 10/08/2023 Encounter Details Date Type Department Care Team (Late st Contact Info) Description 10/08/2023 Telephone Patient Blood Management, [place] [address] [place] [address] Trina Morin CRNP [address] [facility] [place] [address] Blood Management Program Allergies No known active [...] money to get more. Never true 05/17/2023 [place] Depression Scale Answer Date Recorded [place] Depression Scale Total 2 05/20/2023 The thought [...] to schedule 3 hour appt "infed" (Trina Backer). Thanks! * Telephone Encounter - Fara Neal RN - 10/16/2023 10:12 AM EDT Order received for infed. [place] plan built and routed for signature. Prior auth not needed. Can send to scheduling once signed. * Telephone Encounter - Candelario Slater RN - 10/08/2023 2:04 PM EDT Recommend IV iron per OB MTM guidelines. Patient agreeable, prefers infusion at [facility]. documented in this encounter Plan of Treatment Upcoming Encounters Date Type Department Care Team (Late st Contact Info) Description 10/22/2023 7:45 AM EDT Imaging Radiology [facility] [address] [facility] [place] [address] 10/22/2023 8:45 AM EDT Office Visit Gynecology/Obstetrics [facility] [address] [facility] [place] [address] Trina Morin CRNP [address] [facility] [place] [address] 10/30/2023 2:30 PM EDT Pharmacy Pharmacy, [facility] [address] [place] [address] Clinic, Anemia [address] [place] [address] 11/05/2023 4:15 PM EDT Office Visit Gynecology/Obstetrics [facility] [address] [facility] [place] [address] Nuno Phelps CNM [address] [facility] [address] Scheduled Referrals Name Type Priority Associated Diagnoses [...]
--- OUTSIDE RECORDS SUMMARY | 2023-11-06 03:25 | External Medical Summary | Summary of Care ---
Author Name Unknown Organization [facility] Address [address] [place] [address] Phone [phone] Care Team Providers Care Barn Worker Name Role Phone Unavailable Primary Care Provider Unavailabl e Reason for Referral * Evaluate & Treat - Unlimited Visits (Within 10 days (routine)) - Pending Review Specialty Diagnoses / Procedures Referred By Franc maher Referred To Contact Pharmacist / Pharmacy Diagnoses TAWNYA (iron deficiency anemia) Trina Morin CRNP [address] [place] [address] Referral ID Status Reason Start Date Expiration Date Visits Requested Visits Authorized [id number] Pending Review Specialty Services Required 10/08/2023 04/05/2024 99 99 Question Answer Referral Priority Within 10 days (routine) Where should this appointment be scheduled? 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 [place] [address] Blood Management Program Allergies No known active [...] money to get more. Never true 05/17/2023 [place] Depression Scale Answer Date Recorded [place] Depression Scale Total 2 05/20/2023 The thought [...] Encounter - Mariza Simeon OSA - 10/21/2023 9:13 AM EDT Pt called in to schedule She was offered sooner apts and declined all and only wanted next Saturday Apt scheduled and pt is aware * Telephone Encounter - Mariza Simeon OSA [...] 10:12 AM EDT Order received for infed. [place] plan built and routed for signature. Prior auth not needed. Can send to scheduling once signed. * Telephone Encounter - Candelario Slater RN - 10/08/2023 2:04 PM EDT Recommend IV iron per OB MTM guidelines. Patient agreeable, prefers infusion at [facility]. documented in this encounter Plan of Treatment Upcoming Encounters Date Type Department Care Team (Late st Contact Info) Description 10/22/2023 7:45 AM EDT Imaging Radiology [address] [place] [address] 10/22/2023 8:45 AM EDT Office Visit Gynecology/Obstetrics [address] [place] [address] Backer, CARMELO Velez [address] [place] [address] 10/30/2023 2:30 PM EDT Pharmacy Pharmacy, [place] [address] [place] [address] Clinic, [facility] [address] [place] [address] 11/01/2023 1:30 PM EDT Hem/Onc Treatment Hematology/Oncology Treatment, [place] [address] [place] [address] Anita, Chair 4 Hem Onc Scene [address] [facility] [place] [address] 11/05/2023 4:15 PM EDT Office Visit Gynecology/Obstetrics [facility] [place] [address] Nuno Phelps, ALEXANDER [address] [place] [address] Scheduled Referrals Name Type Priority Associated Diagnoses [...]
--- OUTSIDE RECORDS SUMMARY | 2023-11-06 03:25 | External Medical Summary ---
Author Name Unknown Address Unknown Organization K01:[facility] - [address] [place] [address] Laboratory Report Ordering Provider Test Date Status INGRID LAM 10/22/2023 09:23:24 Final Observation Date Value Abnormality Reference (Units ) Status LINDSEY SPECIMEN-LAV 10/22/2023 09:23:24 Freezing of extracted DNA, whole blood and/or serum. Final Performing Location [facility] - [address] [place] [address]
--- OUTSIDE RECORDS SUMMARY | 2023-11-06 03:25 | External Medical Summary | Summary of Care ---
Author Name Unknown Organization [facility] Address [address] [place] [address] Phone [phone] Care Team Providers Care Personal Financial Planner Name Role Phone Unavailable Primary Care Provider Unavailabl e Encounter Details Date Type Department Care Team (Late st Contact Info) Description 10/17/2023 Orders Only Pharmacy, [place] [address] [place], [place] [id number] [facility] [address] [place] [address] Allergies No known active allergiesdocumented as of [...] money to get more. Never true 05/17/2023 [place] Depression Scale Answer Date Recorded [place] Depression Scale Total 2 05/20/2023 The thought [...] Description 10/22/2023 7:45 AM EDT Imaging Radiology [facility] [address] [place] [address] 10/22/2023 8:45 AM EDT Office Visit Gynecology/Obstetrics [facility] [address] [facility] [place] [address] Trina Morin CRNP [address] [place] [address] 10/30/2023 2:30 PM EDT Pharmacy Pharmacy, [place] [address] [place] [address] Clinic, Anemia [address] [place] [address] 11/05/2023 4:15 PM EDT Office Visit Gynecology/Obstetrics [facility] [address] [place] [address] Nuno Phelps, AKILAH [address] [place] [address] Health Maintenance Due Date Last Done Comments [...]
--- OUTSIDE RECORDS SUMMARY | 2023-11-06 03:25 | External Medical Summary ---
Author Name Unknown Address Unknown Organization [id number]:LABORATORY [facility] [place] - [address] [place] [address] Laboratory Report Ordering Provider Test Date Status INGRID LAM 10/22/2023 09:23:24 Final Observation Date Value Abnormality Reference (Units ) Status MYCODE SPECIMEN-SST 10/22/2023 09:23:24 Freezing of extracted DNA, whole blood and/or serum. Final Performing Location LABORATORY C - [address] [place] [address]
--- OUTSIDE RECORDS SUMMARY | 2023-11-06 03:26 | External Medical Summary | Summary of Care ---
Author Name Unknown Organization [facility] Address [address] [facility] [place] [address] Phone [phone] Care Team Providers Care Marble Finisher Name Role Phone Unavailable Primary Care Provider Unavailabl e Reason for Visit * Reason Comments Return Visit Encounter Details Date Type Department Care Team (Late st Contact Info) Description 07/23/2023 2:45 PM EDT Office Visit Gynecology/Obstetric s [facility] [address] [place] [address] Avril Poe CNM [address] [facility] [place] [phone] Supervision of normal first , antepartum*; Obesity, Class II, BMI 35-39.9 Allergies No known active allergiesdocumented as of this encounter (statuses as of 07/23/2023) Medications Medication Sig Dispensed Refills Start Date End Date Status /Iron Oral Tablet Take by mouth. 0 Active documented as of this encounter (statuses as of 07/23/2023) Active Problems Problem Noted Date Diagnosed Date [...] as of this encounter (statuses as of 07/23/2023) Social History Tobacco Use Types Packs/Day Years Used Date Smoking Tobacco: Never Smokeless Tobacco: Never Alcohol Use Standard Drinks/Week Comments Not Currently 0 (1 standard drink = 0.6 oz pur e alcohol) Hunger Vital Sign Answer Date Recorded Within the past 12 months, y ou worried that your food would run out before you got the money to buy more. Never true 05/17/19 Within the past 12 months, t he food you bought just didn't last and you didn't have money to get more. Never true 05/17/2023 Ennis Depression Scale Answer Date Recorded Ennis Depression Scale Total 2 05/20/2023 The thought of harming myself has occurred to me . Never 05/20/2023 Estimated Date of Delivery Comme nts [...] Sign Reading Time Taken Comments Blood Pressure 124/78 07/23/2023 2:25 PM EDT Pulse - - Temperature - - Respiratory Rate - - Oxygen Saturation - - Inhaled Oxygen Concentration - - Weight 100.9 kg (222 lb 6.4 oz) 07/23/2023 2:25 PM EDT Height - - Body Mass Index 39.4 05/20/2023 1:25 PM EST documented in this encounter Progress Notes * Avril Poe CNM - 07/23/2023 2:45 PM EDT Bela Dave is a 33 year old female here for her routine OB appointment at 20w0d Her Estimated Date of Delivery: 12/10/23 REVIEW OF SYSTEMS: She affirms movement. Denies vaginal bleeding, LOF, contractions, N/V, headaches PHYSICAL EXAM: Filed Vitals: 07/23/23 1425 BP: 124/78 Weight: 100.9 kg (222 lb 6.4 oz) +FHT 150s Fundal height at the umbilicus ASSESSMENT/PLAN: 1. Obesity, Class II, BMI 35-39.9 2. Supervision of normal first , antepartum - had anatomy u/s today - preliminary results WNLs - RTO in 4 weeks Avril Poe CNM * Na Connor LPN - 07/23/2023 2:25 PM EDT Pt is currently 20w0d with an Estimated Date of Delivery: 12/10/23 - Anatomy today documented in this encounter Plan of Treatment Upcoming Encounters Date Type Department Care Team (Late st Contact Info) Description 08/23/2023 2:30 PM EDT Office Visit Gynecology/Obstetrics [facility] [address] [place] [address] Rosalie Dykes CRNP [address] [place] [address] Health Maintenance Due Date Last Done Comments [...]
--- OUTSIDE RECORDS SUMMARY | 2023-11-06 03:26 | External Medical Summary ---
Author Name Unknown Address Unknown Organization [id number]:LABORATORY [facility] [place] - [address] [address] Laboratory Report Ordering Provider Test Date Status IMMANUEL FERNANDES 09/20/2023 16:21:51 Final Observation Date Value Abnormality Reference (Units ) Status BUN 09/20/2023 16:21:51 9 6-20 (mg/dL) Final Creatinine 09/20/2023 16:21:51 0.7 0.5-1.0 (mg/dL) Final Glomerular filtration rate/1.73 sq M.predicted [Volume Rate/Area] in Serum, Plasma or Blood by Creatinine-based formula (CKD-EPI) 09/20/2023 16:21:51 >90 >=60 (mL/min) Final eGFR is calculated based on the CKD-EPI 2020 equation Sodium 09/20/2023 16:21:51 134 Below low normal 135 -146 (mmol/L) Final Potassium 09/20/2023 16:21:51 3.8 3.5-5.1 (m mol/L) Final Cl 09/20/2023 16:21:51 100 98-107 (mm ol/L) Final CO2 09/20/2023 16:21:51 22 22-32 (mmo l/L) Final Anion gap 09/20/2023 16:21:51 12 7-15 (mmol /L) Final Glucose 09/20/2023 16:21:51 89 70-120 (mg /dL) Final Albumin 09/20/2023 16:21:51 3.6 Below low normal 3.8 -5.0 (g/dL) Final AST (Aspartate aminotransferase) 09/20/2023 16:21:51 25 10-35 (U/L) Fin al Alk Phos 09/20/2023 16:21:51 87 35-130 (U/ L) Final Bilirubin, Total 09/20/2023 16:21:51 <0.2 <=1 .2 (mg/dL) Final Calcium 09/20/2023 16:21:51 9.3 8.4-10.2 ( mg/dL) Final Protein 09/20/2023 16:21:51 6.3 6.0-8.3 (g /dL) Final ALT (Alanine aminotransferase) 09/20/2023 16:21:51 44 Above high normal 10-35 (U/L) Final Performing Location [facility] [place] - [address] [facility] [address]
--- OUTSIDE RECORDS SUMMARY | 2023-11-06 03:26 | External Medical Summary ---
Author Name Unknown Address Unknown Organization [id number]:[facility]ORY [facility] [place] [facility] [place] [address] Laboratory Report Ordering Provider Test Date Status ARGENTINA POWELL 09/20/2023 16:21:51 Final Observation Date Value Abnormality Reference (Units ) Status WBC, Total 09/20/2023 16:21:51 13.14 Above high normal 4 .00-10.80 (K/uL) Final RBC 09/20/2023 16:21:51 4.03 3.85-5.15 (M/uL) Final Hemoglobin 09/20/2023 16:21:51 10.4 Below low normal 12 .0-15.3 (g/dL) Final Anemia reflex testing trigge rs on a HGB < 12.0 for Females and HGB < 13.0 for Males in accordance with the WHO Anemia Guidelines
Anemia reflex testing triggers on a HGB < 12.0 for Females and HGB < 13.0 for Males in accordance with the WHO Anemia Guidelines HCT 09/20/2023 16:21:51 33.1 Below low normal 36. 0-45.2 (%) Final MCV 09/20/2023 16:21:51 82.1 81.5-97.5 (fL) Final MCH 09/20/2023 16:21:51 25.8 27.0-34.0 (pg) Final MCHC 09/20/2023 16:21:51 31.4 32.0-36.0 (g/dL) Final RDW 09/20/2023 16:21:51 12.9 11.5-15.5 (%) Final Platelets 09/20/2023 16:21:51 114 Below low normal 140 -400 (K/uL) Final MPV 09/20/2023 16:21:51 12.8 6.6-11.1 ( fL) Final Nucleated erythrocytes/100 leukocytes [Ratio] in Blood by Automated count 09/20/2023 16:21:51 0 <=0 (/100 WBCs) Final Performing Location LABORATORY [facility] [place] - [address] [facility] [address]
--- OUTSIDE RECORDS SUMMARY | 2023-11-06 03:26 | External Medical Summary ---
Author Name Unknown Address Unknown Organization : Laboratory Report Ordering Provider Test Date Status ARGENTINA POWELL 06/20/2023 13:58:45 Final Observation Date Value Abnormality Reference (Units ) Status NUMBER OF FETUSES? 06/20/2023 13:58:45 1 Final ADVANCED MATERNAL AGE? 06/20/2023 13:58:45 NO Final ABNORMAL PILLO? 06/20/2023 13:58:45 NO Final ABNORMAL US? 06/20/2023 13:58:45 NOT GIVEN Final PERSONAL/FAM HISTORY? 06/20/2023 13:58:45 NOT GIVEN Final INTERPRETATION 06/20/2023 13:58:45 SEE BELOW Final This specimen showed an expe cted representation of
chromosome 21, 18, and 13 material. Results were
not analyzed or reported for microdeletions. See
'Limitations' below. TRISOMY 21 (T21) 06/20/2023 13:58:45 Negative Final TRISOMY 18 (T18) 06/20/2023 13:58:45 Negative Final TRISOMY 13 (T13) 06/20/2023 13:58:45 Negative Final Y CHROMOSOME 06/20/2023 13:58:45 Not detected Final Y CHR. INTERPRETATION 06/20/2023 13:58:45 SEE BELOW Final Consistent with a female fet us. SEX CHROMOSOME 06/20/2023 13:58:45 No aneuploidy Final SEX CHROMOSOME INTERP 06/20/2023 13:58:45 SEE BELOW Final No apparent abnormality was detected. See
'Limitations' below. MICRODELETION 06/20/2023 13:58:45 Opted Out Final MICRODELETION INTERP 06/20/2023 13:58:45 SEE BELOW Final Results were not analyzed or reported for
microdeletions. GESTATIONAL AGE (IN WEEKS) 06/20/2023 13:58:45 15 Final GESTATIONAL AGE (IN DAYS) 06/20/2023 13:58:45 2 Final FRACTION 06/20/2023 13:58:45 5.13% Final LABORATORY COMMENTS 06/20/2023 13:58:45 SEE BELOW Final Laboratory testing supervise d and results
monitored by Sofiya Kaplan, Ph.D., [facility]. LIMITATIONS 06/20/2023 13:58:45 SEE BELOW Final QNatal(R) Advanced is a cell -free DNA screening
test that screens for increased risk of certain
chromosomal abnormalities that may cause
defects, including Trisomy 21 (Down
syndrome), Trisomy 18, Trisomy 13, and certain sex
chromosome abnormalities (i.e., 45,X, 47,XXY,
47,XXX, and 47,XYY), as well as sex. In
addition, if selected as an option, QNatal(R)
Advanced can screen for certain microdeletions
(i.e., 22q, 5p, 1p36, 15q, 11q, 8q, and 4p) that
may cause defects. This test does not assess
the risk of abnormalities such as neural
tube defects or ventral wall defects and should
not be considered in isolation from other clinical
findings and laboratory test results.
QNatal(R) Advanced has been validated in azar
pregnancies for the trisomies and sex chromosome
abnormalities listed above, as well as for
microdeletions, and for the determination of
sex. Sex chromosome aneuploidy analysis is only
performed in azar pregnancies. This screening
test has also been validated in twin pregnancies
for the trisomies listed above and for
microdeletions, but not for the sex chromosome
abnormalities due to limited data. This screening
test has not been validated in higher order
pregnancies (more than two) because limited data
is available. Sex chromosomal aneuploidy results
issued for pregnancies confirmed to be of multiple
gestations are not valid and should be
disregarded.
Microdeletion screening is limited to the
specified microdeletion regions (see
'Methodology'). The Y chromosome is analyzed for
the determination of sex. The sensitivity
and specificity of sex determination
analysis may be less than that of the Trisomy 21,
18, and 13 analysis and this determination can be
confounded by vanishing twin syndrome in
pregnancies that were originally multiple
gestation pregnancies. It should be noted that
QNatal(R) Advanced is a quantitative analysis of
maternal and placental cfDNA. As a result, the
accuracy of screening results may be affected by
the presence of chromosome abnormalities or
microdeletions that are maternal or confined
placental in origin. SPECIFICATIONS 06/20/2023 13:58:45 SEE BELOW Final Sensitivity Specificity
T21 >99.9% >99.9%
T18 >99.9% >99.9%
T13 >99.9% >99.9%
Accuracy
Y >99.9%
Performance of the QNatal Advanced
laboratory-developed test (LDT) has been
determined based on internal analytical
assessment. METHODOLOGY 06/20/2023 13:58:45 SEE BELOW Final Circulating cell-free (cf) D NA was isolated from
plasma followed by detection on a massively
parallel sequencing platform. Bioinformatic
analysis was performed to determine the
representation of chromosomes 21, 18, 13, X and Y
in circulating cell-free DNA. The representation
of sequences from the critical regions involved in
1p36 microdeletion syndrome (1p36),
Springer-Hirschhorn syndrome (4p), Cri-du-chat
syndrome (5p), Alyssa-Giedion syndrome (8q),
Maren syndrome (11q), Prader Willi
syndrome/Angelman syndrome (15q), and DiGeorge
syndrome (22q) is evaluated for the detection of
microdeletions if requested. Performance
characteristics refer to the analytical
performance of this screening test. This screening
test is performed pursuant to a license agreement
with [employer].
QNatal Advanced is a laboratory developed test
that has been developed and validated, pursuant to
the Clinical Laboratory Improvements Amendments of
1988 (CLIA), and as such it has not been reviewed
by FDA.
Test performed by [employer]
[id number],
[place] [address]

Char Puller: Angelica Samson MD,PHD,VERONICA
Test Reported by [facility],
[employer],
[address] [place], [place]
Job March M.D., Ph.D., Director of Laboratories
, CLIA [id number] Performing Location
--- OUTSIDE RECORDS SUMMARY | 2023-11-06 03:26 | External Medical Summary ---
Author Name Unknown Address Unknown Organization [id number]:LABORATORY [facility] [place] [facility] - [address] [place] [address] Laboratory Report Ordering Provider Test Date Status ARGENTINA POWELL 06/20/2023 13:58:45 Final Observation Date Value Abnormality Reference (Units ) Status Glucose [Moles/volume] in Serum or Plasma --1 hour post 50 g glucose PO 06/20/2023 13:58:45 99 70-129 (mg/dL) Final Performing Location LABORATORY [facility] [place] [facility] 0 - [address] [place] [address]
--- OUTSIDE RECORDS SUMMARY | 2023-11-06 03:26 | External Medical Summary ---
Author Name Unknown Address Unknown Organization K01:LABORATORY C - [address] [facility] [facility] [address] [place] [address] Laboratory Report Ordering Provider Test Date Status ARGENTINA POWELL 09/20/2023 16:21:51 Final Observation Date Value Abnormality Reference (Units ) Status SYNC LEUKOCYTES IN BLOOD BY AUTOMATED COUNT 09/20/2023 16:21:51 13.14 Above high normal 4.00-10.80 (K/uL) Final Segs 09/20/2023 16:21:51 74.0 40.0-75.0 (%) Final Lymphs % 09/20/2023 16:21:51 14.8 Below low normal 18.0-42.0 (%) Final Monos 09/20/2023 16:21:51 9.0 1.0-11.0 (%) Final Eosinophils 09/20/2023 16:21:51 1.2 0.0-6.0 (%) Final Basos 09/20/2023 16:21:51 0.2 0.0-2.0 (%) Final Immature Granulocyte, Percent 09/20/2023 16:21:51 0.8 0.0-2.0 (%) Final Absolute Segs 09/20/2023 16:21:51 9.73 Above high normal 1.80-7.70 (K/uL) Final Lymphs, absolute 09/20/2023 16:21:51 1.94 1.00-4.80 (K/ul) Final Monos, Abs 09/20/2023 16:21:51 1.18 Above high normal 0.00-1.10 (K/uL) Final Eos, Abs 09/20/2023 16:21:51 0.16 0.00-0.70 (K/uL) Final Basos, Abs 09/20/2023 16:21:51 0.03 0.00-0.20 (K/uL) Final Immature Granulocytes, Number 09/20/2023 16:21:51 0.10 0.00-0.20 (K/uL) Final Performing Location [place] [facility] [place] [address] [facility] [address]
--- OUTSIDE RECORDS SUMMARY | 2023-11-06 03:26 | External Medical Summary | Summary of Care ---
Author Name Unknown Organization [facility] Address [address] [facility] [place] [address] Phone [phone] Care Team Providers Care Intelligence Analyst Name Role Phone Unavailable Primary Care Provider Unavailabl e Reason for Visit * Reason Comments Return Visit Encounter Details Date Type Department Care Team (Latest Contact Info) Description 09/20/2023 3:45 PM EDT Office Visit Gynecology/Obstetri [facility] [address] [place] [address] Maxime Santizo MD [address] [place] [address] Supervision of normal first , antepartum*; Obesity, Class II, BMI 35-39.9; PCOS (polycystic ovarian syndrome); Low grade squamous intraepithelial lesion (LGSIL) on cervical Pap smear Allergies No known active allergiesdocumented as of [...] money to get more. Never true 05/17/2023 [place] Depression Scale Answer Date Recorded [place] Depression Scale Total 2 05/20/2023 The thought [...] Sign Reading Time Taken Comments Blood Pressure 138/86 09/20/2023 3:50 PM EDT Pulse - - Temperature - - Respiratory Rate - - Oxygen Saturation - - Inhaled Oxygen Concentration - - Weight 102.5 kg (226 lb) 09/20/2023 3:50 PM EDT Height 160 cm (5' 3") 09/20/2023 3:50 PM EDT Body Mass Index 40.03 09/20/2023 3:50 PM EDT documented in this encounter Progress Notes * Maxime Santizo MD - 09/20/2023 4:07 PM EDT Pt doing well No complaints Cbc and CMP ordered BP 138/86. No PIH symptoms GTT pending RTC as scheduled * Violeta Ba LPN - 09/20/2023 3:50 PM EDT 28w3d Doing early glucola documented in this encounter Plan of Treatment Upcoming Encounters Date Type Department Care Team (Late st Contact Info) Description 10/08/2023 1:30 PM EDT Office Visit Gynecology/Obstetrics [address] [place] [address] Trina Morin CRNP [address] [place] [address] Pending Results Name Type Priority Associated Diagnoses Date /Time COMPREHENSIVE METABOLIC PANEL Lab Routine Supervision of normal first , antepartum 09/20/2023 4:21 PM EDT PROTEIN/ CREATININE RATIO, URINE Lab Routine Supervision of normal first , antepartum 09/20/2023 3:59 PM EDT Health Maintenance Due Date Last Done [...] Obesity, Class II, BMI 35-39.9 Morbid obesity PCOS (polycystic ovarian syndrome) Polycystic ovaries Low grade squamous intraepithelial lesion (LGSIL) on cervical Pap smear Papanicolaou smear of cervix with low grade squamous intraepithelial lesion (LGSIL) documented in this encounter
--- OUTSIDE RECORDS SUMMARY | 2023-11-06 03:26 | External Medical Summary ---
Author Name Unknown Address Unknown Organization K01:LABORATORY [facility] [place] [place] - [facility] [place] [address] Laboratory Report Ordering Provider Test Date Status FELECIA POWELLSTEFFANIE 09/20/2023 16:21:51 Final Observation Date Value Abnormality Reference (Units ) Status Retic, % (auto) 09/20/2023 16:21:51 1.74 0.80-1.90 (%) Final Reticulocytes, Absolute 09/20/2023 16:21:51 70.3 31.3-100.1 (K/uL) Final Reticulocyte fraction, immature 09/20/2023 16:21:51 35.5 Above high normal 2.5-20.6 (%) Final Reticulocyte HGB 09/20/2023 16:21:51 23.8 Below low normal 29.7-37.4 (pg) Final Performing Location LABORATORY [facility] [place] [place] - [facility] [address]
--- OUTSIDE RECORDS SUMMARY | 2023-11-06 03:26 | External Medical Summary | Summary of Care ---
Author Name Unknown Organization [facility] Address [address] [facility] [place] [address] Phone [phone] Care Team Providers Care Team Otr Truck Driver Name Role Phone Unavailable Primary Care Provider Unavailabl e Reason for Visit * Reason Comments New Visit Encounter Details Date Type Department Care Team (Late st Contact Info) Description 05/20/2023 1:45 PM EST Office Visit Gynecology/Obstetric s [facility] [address] [place] [address] Rosalie Dykes CRNP [address] [place] [phone] Supervision of normal first , antepartum*; PCOS (polycystic ovarian syndrome); Obesity, Class II, BMI 35-39.9; Cervical polyp Allergies No known active allergiesdocumented as of this encounter (statuses as of 05/20/2023) Medications Medication Sig Dispensed Refills Start Date End Date Status /Iron Oral Tablet Take by mouth. 0 Active documented as of this encounter (statuses as of 05/20/2023) Active Problems Problem Noted Date Diagnosed Date Supervision of normal first , antepartu m 05/20/2023 Obesity, Class II, BMI 35-39.9 05/20/2023 Overview: Early glucola Growth u/s every 4 weeks after 20wk NST weekly at 37w PCOS (polycystic ovarian syndrome) 05/20/2023 Estimated Date of Delivery Comme nts Yes 12/10/2023 Based on last me nstrual period of 03/05/2023 documented as of this encounter (statuses as of 05/20/2023) Social History Tobacco Use Types Packs/Day Years [...] money to get more. Never true 05/17/2023 Wentworth Depression Scale Answer Date Recorded [place]worth Depression Scale Total 2 05/20/2023 The thought [...] Sign Reading Time Taken Comments Blood Pressure 130/74 05/20/2023 1:25 PM EST Pulse - - Temperature - - Respiratory Rate - - Oxygen Saturation - - Inhaled Oxygen Concentration - - Weight 99.3 kg (219 lb) 05/20/2023 1:25 PM EST Height 160 cm (5' 3") 05/20/2023 1:25 PM EST Body Mass Index 38.79 05/20/2023 1:25 PM EST documented in this encounter Progress Notes * Rosalie Dykes CRNP - 05/20/2023 2:19 PM EST HPI: Bela Dave is a 32 year old year old female here for NOB visit. 10w6d . EDC 12/10/23. Early dating u/s confirming single viable IUP. Reviewed PMH, PSH, social hx, and family hx with pt. History of PCOS. Has had regular periods. Discussed genetic screening tests with pt. She is interested in NIPT. Likely will do with next visit symptoms: nausea improving, +breast tenderness. She is taking PNV. Body mass index is 38.79 kg/m. Past Medical History: Diagnosis Date PCOS (polycystic ovarian syndrome) Past Surgical History: Procedure Laterality Date INCISION OF EARDRUM had x 3 in childhood [place] REPAIR PRIMARY TORN LIGM&/CAPSULE KNEE CRUCIAT Left 2020 and then a revision in 2020 VT TONSILLECTOMY AND ADENOIDECTOMY: AGE 12 OR OVER 2019 REALIGNMENT OF LOWER LEG Right Tibia 2004 then revision in 2009 Current outpatient prescriptions Current Outpatient Medications Medication Sig Dispense Refill /Iron Oral Tablet Take by mouth. No current facility-administered medications for this visit. 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: [employer] Tobacco Use Smoking status: Never Smokeless tobacco: Never Substance and Sexual Activity Alcohol use: Not Currently Drug use: Never Sexual activity: Yes Partners: Male Other Topics Concern Not on file Social History Narrative Not on file Social Determinants of Health Financial Resource Strain: Not on file Food Insecurity: No Food Insecurity (05/17/2023) Hunger Vital Sign Worried About Running Out of Food in the Last Year: Never true Ran Out of Food in the Last Year: Never true Transportation Needs: Not on file Physical Activity: Not on file Stress: Not on file Social Connections: Not on file Intimate Partner Violence: Not on file Housing Stability: Not on file Family History Family History Problem Relation Age of Onset Breast Cancer Mother Hypertension Father Diabetes Grandmother (Maternal) Stroke Grandmother (Maternal) Diabetes Grandmother (Paternal) Obstetric History OB History Para Term AB Living 1 SAB IAB Ectopic Multiple Live Births # Outcome Date GA Lbr Michael/2nd Weight Sex Delivery Anes PTL Lv 1 Current PHYSICAL EXAM: See physical IMPRESSION: Supervision of normal first , antepartum (Primary) - CULTURE, URINE, QUANTITATIVE; Future; Expected date: 05/20/2023 - TYPE AND SCREEN; Future; Expected date: 05/20/2023 - RUBELLA IGG ANTIBODY; Future; Expected date: 05/20/2023 - HEPATITIS B SURFACE ANTIGEN; Future; Expected date: 05/20/2023 - HIV ANTIGEN & ANTIBODY SCREEN W/ CONFIRMATION; Future; Expected date: 05/20/2023 - CHLAMYDIA TRACHOMATIS AND NEISSERIA GONORRHOEAE, AMPLIFIED PROBE; Future; Expected date: 05/20/2023 - CBC WITH WBC DIFFERENTIAL AND ANEMIA REFLEX WORKUP; Future; Expected date: 05/20/2023 - HEPATITIS C ANTIBODY SCREEN WITH PROGRESSION TO HEPATITIS C RNA QUANTITATIVE; Future; Expected date: 05/20/2023 - SYPHILIS ANTIBODY SCREEN WITH REFLEX TO RPR; Future; Expected date: 05/20/2023 - SOCKET WELDER HELPER PAP SCREEN; Future; Expected date: 05/20/2023 - CULTURE, URINE, QUANTITATIVE - CHLAMYDIA TRACHOMATIS AND NEISSERIA GONORRHOEAE, AMPLIFIED PROBE - SOCKET WELDER HELPER PAP SCREEN PCOS (polycystic ovarian syndrome) - 50-G GESTATIONAL GLUCOSE, 1 HOUR; Future; Expected date: 06/18/2023 Obesity, Class II, BMI 35-39.9 - 50-G GESTATIONAL GLUCOSE, 1 HOUR; Future; Expected date: 06/18/2023 Cervical polyp - SURGICAL PATHOLOGY Follow Up: Return in about 4 weeks (around 06/17/2023) for elise. | For: elise | Check-out note: Lab today Glucola with next visit CARMELO Traylor * Violeta Ba LPN - 05/20/2023 1:31 PM EST Pt is here for NOB documented in this encounter Plan of Treatment Upcoming Encounters Date Type Department Care Team (Late st Contact Info) Description 06/20/2023 1:00 PM EDT [facility] [address] [place] [phone] Elin [facility] [address] [place] [address] 06/20/2023 1:30 PM EDT Office Visit Gynecology/Obstetrics [facility] [address] [place] [address] Rosalie Dykes CRNP [address] [place] [address] Pending Results Name Type Priority Associated Diagnoses Date /Time CULTURE, URINE, QUANTITATIVE Lab Routine Supervision of normal first , antepartum 05/20/2023 2:13 PM EST TYPE AND SCREEN Lab Routine Supervision of normal first , antepartum 05/20/2023 2:19 PM EST RUBELLA IGG ANTIBODY Lab Routine Supervision of normal first , antepartum 05/20/2023 2:19 PM EST HEPATITIS B SURFACE ANTIGEN Lab Routine Supervision of normal first , antepartum 05/20/2023 2:19 PM EST HIV ANTIGEN & ANTIBODY SCREEN W/ CONFIRMATION Lab Routine Supervision of normal first , antepartum 05/20/2023 2:19 PM EST CHLAMYDIA TRACHOMATIS AND NEISSERIA GONORRHOEAE, AMPLIFIED PROBE Lab Routine Supervision of normal first , antepartum 05/20/2023 2:13 PM EST CBC WITH WBC DIFFERENTIAL AND ANEMIA REFLEX WORKUP Lab Routine Supervision of normal first , antepartum 05/20/2023 2:19 PM EST HEPATITIS C ANTIBODY SCREEN WITH PROGRESSION TO HEPATITIS C RNA QUANTITATIVE Lab Routine Supervision of normal first , antepartum 05/20/2023 2:19 PM EST SYPHILIS ANTIBODY SCREEN WITH REFLEX TO RPR Lab Routine Supervision of normal first , antepartum 05/20/2023 2:19 PM EST SOCKET WELDER HELPER PAP SCREEN Pathology Routine Supervision of normal first , antepartum 05/20/2023 2:13 PM EST SURGICAL PATHOLOGY Pathology Routine Cervical polyp 05/20/2023 2:13 PM EST Scheduled Orders Name Type Priority Associated Diagnoses Orde r Schedule CULTURE, URINE, QUANTITATIVE Lab Routine Supervision of normal first , antepartum Expected: 05/20/2023, Expires: 05/20/2024 TYPE AND SCREEN Lab Routine Supervision of normal first , antepartum Expected: 05/20/2023 (Approximate), Expires: 06/17/2024 RUBELLA IGG ANTIBODY Lab Routine Supervision of normal first , antepartum Expected: 05/20/2023 (Approximate), Expires: 05/20/2024 HEPATITIS B SURFACE ANTIGEN Lab Routine Supervision of normal first , antepartum Expected: 05/20/2023 (Approximate), Expires: 05/20/2024 HIV ANTIGEN & ANTIBODY SCREEN W/ CONFIRMATION Lab Routine Supervision of normal first , antepartum Expected: 05/20/2023 (Approximate), Expires: 05/20/2024 CHLAMYDIA TRACHOMATIS AND NEISSERIA GONORRHOEAE, AMPLIFIED PROBE Lab Routine Supervision of normal first , antepartum Expected: 05/20/2023 (Approximate), Expires: 05/20/2024 CBC WITH WBC DIFFERENTIAL AND ANEMIA REFLEX WORKUP Lab Routine Supervision of normal first , antepartum Expected: 05/20/2023, Expires: 05/20/2024 HEPATITIS C ANTIBODY SCREEN WITH PROGRESSION TO HEPATITIS C RNA QUANTITATIVE Lab Routine Supervision of normal first , antepartum Expected: 05/20/2023 (Approximate), Expires: 05/20/2024 SYPHILIS ANTIBODY SCREEN WITH REFLEX TO RPR Lab Routine Supervision of normal first , antepartum Expected: 05/20/2023 (Approximate), Expires: 05/20/2024 SOCKET WELDER HELPER PAP SCREEN Pathology Routine Supervision of normal first , antepartum Expected: 05/20/2023, Expires: 06/17/2024 50-G GESTATIONAL GLUCOSE, 1 HOUR Lab Routine PCOS (polycystic ovarian syndrome) Obesity, Class II, BMI 35-39.9 Expected: 06/18/2023 (Approximate), Expires: 05/20/2024 Health Maintenance Due Date Last Done Comments Depression Screening 2002 HIV Screening 2005 Hepatitis C Screening 2008 Pap Smear 06/26/2011 DTaP,Tdap,and Td Vaccines (7 - Td or Tdap) 09/06/2018 09/06/2008, 11/04/1995, 01/14/1992, Additional history exists Cervical Cancer Screening 2020 HPV/Co-Test 2020 COVID-19 Vaccine ( season) 2022 04/20/2020, 03/30/2020 Influenza Vaccine (FLU shot) (#1) 2022 01/08/2018, 01/31/2014 Hepatitis B Completed 02/09/1993, 07/23, 06/30/1992 GARDASIL-HPV [...] Supervision of normal first , antepartum- Primary PCOS (polycystic ovarian syndrome) Polycystic ovaries Obesity, Class II, BMI 35-39.9 Morbid obesity Cervical polyp Mucous polyp of cervix documented in this encounter
--- OUTSIDE RECORDS SUMMARY | 2023-11-06 03:26 | External Medical Summary | Summary of Care ---
Author Name Unknown Organization [facility] Address [address] [place] [facility] [place] [address] Phone [phone] Care Team Providers Care Injection Moulding Machine Operator Name Role Phone Unavailable Primary Care Provider Unavailabl e Reason for Visit * Reason Comments Return Visit Encounter Details Date Type Department Care Team (Latest Contact Info) Description 06/20/2023 1:30 PM EDT Office Visit Gynecology/Obstetri [facility] [address] [place] [address] Roslaie Dykes CRNP [address] [place] [address] Supervision of normal first , antepartum*; Obesity, Class II, BMI 35-39.9; PCOS (polycystic ovarian syndrome); Low grade squamous intraepithelial lesion (LGSIL) on cervical Pap smear Allergies No known active allergiesdocumented as of this encounter (statuses as of 06/20/2023) Medications Medication Sig Dispensed Refills Start Date End Date Status /Iron Oral Tablet Take by mouth. 0 Active documented as of this encounter (statuses as of 06/20/2023) Active Problems Problem Noted Date Diagnosed Date [...] as of this encounter (statuses as of 06/20/2023) Social History Tobacco Use Types Packs/Day Years [...] money to get more. Never true 05/17/2023 [place] Depression Scale Answer Date Recorded [place] Depression Scale Total 2 05/20/2023 The thought [...] Sign Reading Time Taken Comments Blood Pressure 128/84 06/20/2023 1:26 PM EDT Pulse - - Temperature - - Respiratory Rate - - Oxygen Saturation - - Inhaled Oxygen Concentration - - Weight 101.9 kg (224 lb 9.6 oz) 06/20/2023 1:26 PM EDT Height - - Body Mass Index 39.79 05/20/2023 1:25 PM EST documented in this encounter Progress Notes * Rosalie Dykes CRNP - 06/20/2023 1:39 PM EDT 15w2d Had some spotting after intercourse, resolved quickly. Reviewed things to help with sleep. Completing early glucola today. Is interested in Qnatal, but has been struggling to verify insurance. Order is in place for if/when she would like this drawn. Anatomy u/s with next visit. CARMELO Traylor * Serenity Arora LPN - 06/20/2023 1:25 PM EDT 15w2d Insomnia Has noticed some bleeding with intercourse Absent movement Gtt today documented in this encounter Plan of Treatment Upcoming Encounters Date Type Department Care Team (Late st Contact Info) Description 07/23/2023 1:30 PM EDT Imaging Radiology [facility] [address] [facility] [place] [address] 07/23/2023 2:45 PM EDT Office Visit Gynecology/Obstetrics [facility] [address] [facility] [place] [address] Avril Poe CNM [address] [place] [address] Scheduled Orders Name Type Priority Associated Diagnoses Orde r Schedule US PREG SINGLE/1ST GEST, 14 WEEKS OR LATER Medical Imaging Routine Supervision of normal first , antepartum Expected: 07/24/2023 (Approximate), Expires: 07/20/2024 Health Maintenance Due Date Last Done Comments [...]
--- OUTSIDE RECORDS SUMMARY | 2023-11-06 03:26 | External Medical Summary ---
Author Name Unknown Address Unknown Organization [id number]:LABORATORY [facility] [place] - [address] [place] [id number] Laboratory Report Ordering Provider Test Date Status ARGENTINA POWELL 09/20/2023 16:21:51 Final Observation Date Value Abnormality Reference (Units ) Status Iron 09/20/2023 16:21:51 17 Below low normal 33-151 (ug/dL) Final Iron-binding capacity 09/20/2023 16:21:51 471 Above high normal 250-425 (ug/dL) Final Transferrin Sat % 09/20/2023 16:21:51 4 Below low normal 15-55 (%) Final Performing Location LABORATORY [facility] - [address] [place] [address]
--- OUTSIDE RECORDS SUMMARY | 2023-11-06 03:26 | External Medical Summary | Summary of Care ---
Author Name Unknown Organization [facility] Address [address] [facility] [place] [address] Phone [phone] Care Team Providers Care Hydro Technician Name Role Phone Unavailable Primary Care Provider Unavailabl e Encounter Details Date Type Department Care Team (Late st Contact Info) Description 05/30/2023 Telephone Gynecology/Obstetrics [facility] [address] [place] [address] Rosalie Dykes CRNP [address] [facility] [place] [address] Allergies No known active allergiesdocumented as of this encounter (statuses as of 05/31/2023) Medications Medication Sig Dispensed Refills Start Date End Date Status /Iron Oral Tablet Take by mouth. 0 Active documented as of this encounter (statuses as of 05/31/2023) Active Problems Problem Noted Date Diagnosed Date [...] as of this encounter (statuses as of 05/31/2023) Social History Tobacco Use Types Packs/Day Years [...] money to get more. Never true 05/17/2023 [place] Depression Scale Answer Date Recorded [place] Depression Scale Total 2 05/20/2023 The thought [...] Telephone Encounter - Violeta Ba LPN - 05/31/2023 8:56 AM EST Spoke with pt and she said she will just wait to do colpo . Pt has a history of abnormal's and colpo's * Telephone Encounter - Violeta Ba LPN - 05/31/2023 8:52 AM EST Called pt lm to return call * Telephone Encounter - Rosalie Dykes CRNP - 05/30/2023 4:14 PM EST Please notify pt that pap showing LSIL +HPV. Will need colpo. She is . Can do during 2nd trimester or . documented in this encounter Plan of Treatment Upcoming Encounters Date Type Department Care Team (Late st Contact Info) Description 06/20/2023 1:00 PM EDT Laboratory Laboratory, [facility] [address] [place] [phone] [employer] [address] [place] [address] 06/20/2023 1:30 PM EDT Office Visit Gynecology/Obstetrics [facility] [address] [place] [address] Rosalie Dykes CRNP [address] [phone] Health Maintenance Due Date Last Done Comments Depression Screening 2002 DTaP,Tdap,and Td Vaccines (7 - Td or Tdap) 09/06/2018 09/06/2008, 11/04/1995, 01/14/1992, Additional history exists COVID-19 Vaccine (2022- season) 2022 04/20/2020, 03/30/2020 Pap Smear 05/20/2026 [...]
--- OUTSIDE RECORDS SUMMARY | 2023-11-06 03:26 | External Medical Summary | Summary of Care ---
Author Name Unknown Organization [facility] Address [address] [place] [address] Phone [phone] Care Team Providers Care Manager Maintenance Name Role Phone Unavailable Primary Care Provider Unavailabl e Reason for Visit * Reason Comments Return Visit Encounter Details Date Type Department Care Team (Latest Contact Info) Description 08/23/2023 2:30 PM EDT Office Visit Gynecology/Obstetri [facility] [address] [place] [address] Rosalie Dykes CRNP [address] [place] [phone] Supervision of normal first , antepartum*; Obesity, Class II, BMI 35-39.9; PCOS (polycystic ovarian syndrome); Low grade squamous intraepithelial lesion (LGSIL) on cervical Pap smear Allergies No known active allergiesdocumented as of this encounter (statuses as of 08/23/2023) Medications Medication Sig Dispensed Refills Start Date End Date Status /Iron Oral Tablet Take by mouth. Active documented as of this encounter (statuses as of 08/23/2023) Active Problems Problem Noted Date Diagnosed Date [...] as of this encounter (statuses as of 08/23/2023) Social History Tobacco Use Types Packs/Day Years [...] money to get more. Never true 05/17/2023 [place] Depression Scale Answer Date Recorded [place] Depression Scale Total 2 05/20/2023 The thought [...] Sign Reading Time Taken Comments Blood Pressure 130/82 08/23/2023 2:29 PM EDT Pulse - - Temperature - - Respiratory Rate - - Oxygen Saturation - - Inhaled Oxygen Concentration - - Weight 102.8 kg (226 lb 9.6 oz) 08/23/2023 2:29 PM EDT Height - - Body Mass Index 40.14 05/20/2023 1:25 PM EST documented in this encounter Progress Notes * Rosalie Dykes CRNP - 08/23/2023 2:55 PM EDT 24w3d Having indigestion, Tums does help somewhat. Suggested she try Pepcid or Prilosec. Going to [employer]. Baby is active. No contractions, bleeding, LOF. Glucola with next visit. CARMELO Traylor * Patricia Looney MED ASSIST - 08/23/2023 2:29 PM EDT 24w3d Vaginal bleeding: no ROM: no movement: present Contractions: no Nausea: positive Vomiting: no Headaches: no documented in this encounter Plan of Treatment Upcoming Encounters Date Type Department Care Team (Late st Contact Info) Description 09/20/2023 2:00 PM EDT Laboratory Laboratory, [facility] [address] [employer] [place] [phone] [facility] [address] [place] [address] 09/20/2023 2:15 PM EDT [facility] [address] [place] [address] Rosalie Dykes CRNP [address] [place] [phone] Scheduled Orders Name Type Priority Associated Diagnoses Orde r Schedule 50-G GESTATIONAL GLUCOSE, 1 HOUR Lab Routine Supervision of normal first , antepartum Expected: 08/23/2023, Expires: 08/22/2024 SYPHILIS ANTIBODY SCREEN WITH REFLEX TO RPR Lab Routine Supervision of normal first , antepartum Expected: 08/23/2023, Expires: 08/22/2024 CBC WITH WBC DIFFERENTIAL AND ANEMIA REFLEX WORKUP Lab Routine Supervision of normal first , antepartum Expected: 08/23/2023, Expires: 08/22/2024 Health Maintenance Due Date Last Done Comments [...]
--- OUTSIDE RECORDS SUMMARY | 2023-11-06 03:26 | External Medical Summary | Summary of Care ---
Author Name Unknown Organization [facility] Address [address] [facility] [place] [address] Phone [phone] Care Team Providers Care Auto Dismantler Name Role Phone Unavailable Primary Care Provider Unavailabl e Encounter Details Date Type Department Care Team (Late st Contact Info) Description 06/17/2023 Telephone Gynecology/Obstetrics [facility] [address] [place] [address] Rosalie Dykes CRNP [address] [facility] [place] [address] Allergies No known active allergiesdocumented as of this encounter (statuses as of 06/18/2023) Medications Medication Sig Dispensed Refills Start Date End Date Status /Iron Oral Tablet Take by mouth. 0 Active documented as of this encounter (statuses as of 06/18/2023) Active Problems Problem Noted Date Diagnosed Date [...] as of this encounter (statuses as of 06/18/2023) Social History Tobacco Use Types Packs/Day Years [...] money to get more. Never true 05/17/2023 [place] Depression Scale Answer Date Recorded [place] Depression Scale Total 2 05/20/2023 The thought [...] encounter Miscellaneous Notes * Telephone Encounter - Na Connor LPN - 06/18/2023 9:39 AM EDT Patient notified * Telephone Encounter - Aida Johnson OSA - 06/18/2023 9:31 AM EDT No auth is required. Referral note sent back. Thank you * Telephone Encounter - Na Connor LPN - 06/18/2023 8:53 AM EDT Please prior auth QNatal * Telephone Encounter - Rosalie Dykes CRNP - 06/18/2023 8:09 AM EDT Order signed. Please send prior auth. * Telephone Encounter - Kalli Howard RN - 06/17/2023 3:47 PM EDT Pt called her insurance and was told that the Qnatal requires prior auth. Will have Rosalie place order and then will sent for prior auth. I did encourage her to reach out to [facility]nat[facility] to see what they sayas well. Message to Rosalie. documented in this encounter Plan of Treatment Upcoming Encounters Date Type Department Care Team (Late st Contact Info) Description 06/20/2023 1:00 PM EDT Laboratory Laboratory, [facility] [address] [place] [phone] [facility] [address] [place] [address] 06/20/2023 1:30 PM EDT Office Visit Gynecology/Obstetrics [facility] [address] [place] [address] Rosalie Dykes CRNP [address] [facility] [place] [address] Scheduled Orders Name Type Priority Associated Diagnoses Orde r Schedule QNATAL ADVANCED ([facility]) Lab Routine Encounter for supervision of normal first in second trimester Expected: 06/18/2023 (Approximate), Expires: 06/16/2024 Health Maintenance Due Date Last Done Comments [...] as of this encounter Visit Diagnoses Diagnosis Encounter for supervision of normal first in second trimester- Primary Supervision of normal first documented in this encounter
--- OUTSIDE RECORDS SUMMARY | 2023-11-06 03:26 | External Medical Summary ---
Author Name Unknown Address Unknown Organization [id number]:[facility]ORY [facility] [place] [address] [place] [id number] Laboratory Report Ordering Provider Test Date Status ARGENTINA POWELL 09/20/2023 16:21:51 Final Observation Date Value Abnormality Reference (Units ) Status Treponema pallidum Ab [Presence] in Serum by Immunoassay 09/20/2023 16:21:51 Nonreactive Nonreactive Final No serologic evidence of syp hilis. No additional testing clinicially indicated at this time. Consider repeat testing in 2-4 weeks if acute or primary syphilis is suspected. Performing Location LABORATORY [facility] [place] - [address] [place] [address]
--- OUTSIDE RECORDS SUMMARY | 2023-11-06 03:26 | External Medical Summary ---
Author Name Unknown Address Unknown Organization [id number]:[facility] [place] - [address] [place] [id number] Laboratory Report Ordering Provider Test Date Status DOMIMMANUEL 09/20/2023 15:59:01 Final Normal: <150 mg/ g creatinine
High: 150-500 mg/g creatinine
Very High: >500 mg/g creatinine
Nephrotic: >3000 mg/g creatinine Observation Date Value Abnormality Reference (Units ) Status Protein/Creatinine [Ratio] in Urine 09/20/2023 15:59:01 98 <150 (mg/g ) Final Protein, Urine 09/20/2023 15:59:01 10 (mg/dL) Final Creatinine, Urine 09/20/2023 15:59:01 102 (mg/dL) Final Performing Location LAB[facility]ATORY [facility] [place] - [address] [place] [address]
--- OUTSIDE RECORDS SUMMARY | 2023-11-06 03:26 | External Medical Summary ---
Author Name Unknown Address Unknown Organization [id number]:LABORATORY C - [address] [place] [address] Laboratory Report Ordering Provider Test Date Status ARGENTINA POWELL 09/20/2023 16:21:51 Final Observation Date Value Abnormality Reference (Units ) Status Ferritin 09/20/2023 16:21:51 7 Below low normal 13- 150 (ng/mL) Final Performing Location [facility] - [address] [place] [address]
--- OUTSIDE RECORDS SUMMARY | 2023-11-06 03:26 | External Medical Summary ---
Author Name Unknown Address Unknown Organization [id number]:LABORATORY [facility] - [address] [place] [address] Laboratory Report Ordering Provider Test Date Status ARGENTINA POWELL 09/20/2023 16:21:51 Final Observation Date Value Abnormality Reference (Units ) Status Glucose [Moles/volume] in Serum or Plasma --1 hour post 50 g glucose PO 09/20/2023 16:21:51 92 70-129 (mg/dL) Final Performing Location [facility] - [address] [place] [address]
--- OUTSIDE RECORDS SUMMARY | 2023-11-06 03:27 | External Medical Summary ---
Author Name Unknown Address Unknown Organization [id number]:LABORATORY [facility] [place] - [address] [place] [address] Laboratory Report Ordering Provider Test Date Status ARGENTINA POWELL 05/20/2023 14:19:33 Final Observation Date Value Abnormality Reference (Units ) Status SYNC LEUKOCYTES IN BLOOD BY AUTOMATED COUNT 05/20/2023 14:19:33 11.47 Above high normal 4.00-10.80 (K/uL) Final Segs 05/20/2023 14:19:33 73.8 40.0-75.0 (%) Final Lymphs % 05/20/2023 14:19:33 17.1 Below low normal 18.0-42.0 (%) Final Monos 05/20/2023 14:19:33 7.6 1.0-11.0 (%) Final Eosinophils 05/20/2023 14:19:33 1.0 0.0-6.0 (%) Final Basos 05/20/2023 14:19:33 0.2 0.0-2.0 (%) Final Immature Granulocyte, Percent 05/20/2023 14:19:33 0.3 0.0-2.0 (%) Final Absolute Segs 05/20/2023 14:19:33 8.47 Above high normal 1.80-7.70 (K/uL) Final Lymphs, absolute 05/20/2023 14:19:33 1.96 1.00-4.80 (K/ul) Final Monos, Abs 05/20/2023 14:19:33 0.87 0.00-1.10 (K/uL) Final Eos, Abs 05/20/2023 14:19:33 0.12 0.00-0.70 (K/uL) Final Basos, Abs 05/20/2023 14:19:33 0.02 0.00-0.20 (K/uL) Final Immature Granulocytes, Number 05/20/2023 14:19:33 0.03 0.00-0.20 (K/uL) Final Performing Location LABORATORY [facility] - [address] [facility] [address]
--- OUTSIDE RECORDS SUMMARY | 2023-11-06 03:27 | External Medical Summary ---
Author Name Unknown Address Unknown Organization [id number]:LABORATORY [facility] [place] - Formerly named [facility] [address] [facility] [address] Laboratory Report Ordering Provider Test Date Status ARGENTINA POWELL 05/20/2023 14:19:33 Final Observation Date Value Abnormality Reference (Units ) Status HIV 1+2 Ab+HIV1 p24 Ag [Presence] in Serum or Plasma by Immunoassay 05/20/2023 14:19:33 Negative Negative Final Negative HIV-1/2 antigen and antibody screening tset results usually indicate the absence of HIV-1 and HIV-2 infection. However, such negative results do not rule-out acute HIV infection. If acute HIV-1 infection is highly suspected, it is recommended that a specimen be submitted for detection of HIV-1 RNA. Performing Location LABORATORY [facility] - Formerly named [facility] [address] [facility] [address] [place] [address]
--- OUTSIDE RECORDS SUMMARY | 2023-11-06 03:27 | External Medical Summary ---
Author Name Unknown Address Unknown Organization [id number]:LABORATORY [facility] [place] - [address] [place] [address] Laboratory Report Ordering Provider Test Date Status ARGENTINA POWELL 05/20/2023 14:19:33 Final Observation Date Value Abnormality Reference (Units ) Status Treponema pallidum Ab [Presence] in Serum by Immunoassay 05/20/2023 14:19:33 Nonreactive Nonreactive Final No serologic evidence of syp hilis. No additional testing clinicially indicated at this time. Consider repeat testing in 2-4 weeks if acute or primary syphilis is suspected. Performing Location LABORATORY [facility] [place] - [address] [address]
--- OUTSIDE RECORDS SUMMARY | 2023-11-06 03:27 | External Medical Summary ---
Author Name Unknown Address Unknown Organization [id number]:LABORATORY [facility] [place] - [address] [place] [address] Laboratory Report Ordering Provider Test Date Status FELECIA POWELLSTEFFANIE 05/20/2023 14:13:54 Final Observation Date Value Abnormality Reference (Units ) Status Chlamydia trachomatis rRNA [Presence] in Specimen by AR with probe detection 05/20/2023 14:13:54 Negative Negative Final No Chlamydia trachomatis det ected by vegetable grower-mediated nucleic acid amplification. Neisseria gonorrhoeae rRNA [ Presence] in Specimen by AR with probe detection 05/20/2023 14:13:54 Negative Negative Final No Neisseria gonorrhoeae det ected by vegetable grower-mediated nucleic acid amplification. Performing Location LABORATORY [facility] - [address] [place] [address]
--- OUTSIDE RECORDS SUMMARY | 2023-11-06 03:27 | External Medical Summary ---
Author Name Unknown Address Unknown Organization [id number]:[facility] [place] [address] [place] [address] Laboratory Report Ordering Provider Test Date Status ARGENTINA POWELL 05/20/2023 14:19:33 Final Observation Date Value Abnormality Reference (Units ) Status Hep B surface Ag 05/20/2023 14:19:33 Negative Neg ative Final Performing Location [facility] - [address] [facility] [place] [address]
--- OUTSIDE RECORDS SUMMARY | 2023-11-06 03:27 | External Medical Summary ---
Author Name Unknown Address Unknown Organization K01:LABORATORY [facility] - [address] [facility] Laboratory Report Ordering Provider Test Date Status FELECIA POWELLSTEFFANIE 05/20/2023 14:13:54 Final Observation Date Value Abnormality Reference (Units) Status Bacteria identified in Specimen by Culture 05/20/2023 14:13:54 No significant growth Final Test: Culture, Urine, Quant itative
Specimen Source: Urine, Clean Catch
Specimen Type: Urine
Specimen Date: 05/20/2023 2:13 PM
Result Date: 05/21/2023 11:39 AM
Result Status: Final result
Resulting Lab: LABORATORY [facility]
[address]
[place] [address]

CULTURE

No significant growth

null Performing Location LABORATORY [facility] - [address] [place] [id number]
--- OUTSIDE RECORDS SUMMARY | 2023-11-06 03:27 | External Medical Summary ---
Author Name Unknown Address Unknown Organization K01:LABORATORY C - [address] [address] Laboratory Report Ordering Provider Test Date Status ARGENTINA POWELL 05/20/2023 14:19:33 Final Observation Date Value Abnormality Reference (Units ) Status Hep C Ab 05/20/2023 14:19:33 Negative Negative Final Further HCV quantitative karl ting not performed per protocol. Performing Location LABORATORY [facility] [place] - [address] [address]
--- OUTSIDE RECORDS SUMMARY | 2023-11-06 03:27 | External Medical Summary ---
Author Name Unknown Address Unknown Organization K01:LABORATORY [address] [address] Laboratory Report Ordering Provider Test Date Status ARGENTINA POWELL 05/20/2023 14:13:00 Final Observation Date Value Abnormality Reference (Units ) Status Human papilloma virus E6+E7 mRNA [Presence] in Cervix by AR with probe detection 05/20/2023 14:13:00 Positive Abnormal Not Applicable Final One or more high/intermediat e-risk Human Papillomavirus (HPV E6/E7 messenger RNA) detected by nucleic acid amplification.

This assay looks for high/intermediate risk Human Papillomavirus (HPV E6/E7 messenger RNA) by nucleic acid amplification. This assay includes the qualitative detection of HPV types 16,18,31,33,35,39,45,51,52,56,58,59,66 and 68 from cervical specimens.
This assay has been FDA cleared for Thin prep collection vials.
This assay has not been approved for use as a primary screening test for HPV and should be tested in conjunction with a PAP screen.
If collected utilizing a Surepath vial, the collection and specimen preparation of this test was developed, and its performance characteristics determined by [employer]. It has not been cleared or approved by the U.S. Food and Drug Administration (FDA). The FDA has determined that such clearance or approval is not necessary.
This assay has been performed at [facility], [address] [place] [address], [place]. [address]. Performing Location LAB[facility]ATORY [address] [facility] [address]
--- OUTSIDE RECORDS SUMMARY | 2023-11-06 03:27 | External Medical Summary ---
Author Name Unknown Address Unknown Organization K01:LABORATORY [facility] - [address] [address] Laboratory Report Ordering Provider Test Date Status ARGENTINA POWELL 05/20/2023 14:19:33 Final Observation Date Value Abnormality Reference (Units ) Status ABO 05/20/2023 14:19:33 A Final RH 05/20/2023 14:19:33 Positive Final RED BLOOD CELL ANTIBODY SCREEN 05/20/2023 14:19:33 Negative Final SPECIMEN EXPIRATION DATE 05/20/2023 14:19:33 05/23/2023 23:59 Final Performing Location LABORATORY [facility] - [address] [address]
--- OUTSIDE RECORDS SUMMARY | 2023-11-06 03:27 | External Medical Summary | Summary of Care ---
Author Name Unknown Organization [facility] Address [address] [facility] [place] [address] Phone [phone] Care Team Providers Care Design Technology Professor Name Role Phone Unavailable Primary Care Provider Unavailabl e Encounter Details Date Type Department Care Team (Late st Contact Info) Description 05/17/2023 1:00 PM EST Nurse Only Gynecology/Obstetrics [facility] [address] [place] [address] Gw, Nurse Tube Former Operator [facility] [address] [facility] [place] [address] Allergies No known active allergiesdocumented as of this encounter (statuses as of 05/17/2023) Medications Medication Sig Dispensed Refills Start Date End Date Status /Iron Oral Tablet Take by mouth. 0 Active documented as of this encounter (statuses as of 05/17/2023) Social History Tobacco Use Types Packs/Day Years Used Date Smoking Tobacco: Never Smokeless Tobacco: Never Tobacco Cessation:Counseling Given: No Alcohol Use Standard Drinks/Week Comments Not Currently [...] money to get more. Never true 05/17/2023 Comments Yes Sex and Gender Information Value Date Recorded Sex Assigned at Female 05/17/2023 12:34 PM EST Gender Identity Female 05/17/2023 12:34 PM EST Sexual Orientation Straight 05/17/2023 12 :40 PM EST documented as of this encounter Progress Notes * Violeta Ba LPN - 05/17/2023 1:02 PM EST Patient here for initial ob visit. No transferred records. Are you planning a home delivery?No Pt advised , If at anytime during your you decide to pursue a home , please notify our office. Patient oriented to the Women's Health department and current providers in the practice.We discuss the the options of delivery, [facility] vs [facility] with midwives. Reviewed frequency of visits. Reviewed outreach clinics and how to contact providers during regularoffice hours and after office hours. Educational packet reviewed. [facility] is a way you can talk to your provider online through e-mail. Would you like to sign up, I can activate it for you. ALREADY ACTIVE Patient advised not to use [facility] for urgent related problems. Does the patient have an advance directive? No, Advance Directive brochure offered, patient declined. Violeta Ba LPN documented in this encounter Plan of Treatment Upcoming Encounters Date Type Department Care Team (Late st Contact Info) Description 05/20/2023 12:45 PM EST Imaging Radiology [facility] 2nd [facility] [address] [facility] [place] [address] 05/20/2023 1:45 PM EST Office Visit Gynecology/Obstetrics [facility] [address] [facility] [place] [address] Rosalie Dykes CRNP [address] [facility] [place] [address] Health Maintenance Due Date Last Done Comments Depression Screening 2002 HIV Screening 2005 Hepatitis C Screening 2008 DTaP,Tdap,and Td Vaccines (1 - Tdap) 2009 Hepatitis B (1 of 3 - 19+ 3- dose series) 2009 Pap Smear 06/26/2011 Cervical Cancer Screening 2020 HPV/Co-Test 2020 COVID-19 Vaccine (2022-2 4 season) 2022 Influenza Vaccine (FLU shot) (#1) 2022 GARDASIL-HPV IMMUNIZATION SERIES Aged Out No longer eligible based on patient's age to complete this topic MENINGOCOCCAL (MENACTRA/MENVEO) Aged Out No longer eligible based on patient's age to complete this topic Pneumococcal Vaccine: Pediat rics (0 to 5 Years) and At-Risk Patients (6 to 64 Years) Aged Out No longer eligible b ased on patient's age to complete this topic documented as of this encounter Medical Devices Not on filedocumented as of this encounter Visit Diagnoses Diagnosis Early stage of - Primary documented in this encounter
--- OUTSIDE RECORDS SUMMARY | 2023-11-06 03:27 | External Medical Summary ---
Author Name Unknown Address Unknown Organization K01:LABORATORY [facility] - [address] [address] Laboratory Report Ordering Provider Test Date Status ARGENTINA POWELL 05/20/2023 14:19:33 Final Observation Date Value Abnormality Reference (Units ) Status WBC, Total 05/20/2023 14:19:33 11.47 Above high normal 4 .00-10.80 (K/uL) Final RBC 05/20/2023 14:19:33 4.61 3.85-5.15 (M/uL) Final Hemoglobin 05/20/2023 14:19:33 13.3 12.0-15.3 (g/dL) Final Anemia reflex testing trigge rs on a HGB < 12.0 for Females and HGB < 13.0 for Males in accordance with the WHO Anemia Guidelines
Anemia reflex testing triggers on a HGB < 12.0 for Females and HGB < 13.0 for Males in accordance with the WHO Anemia Guidelines HCT 05/20/2023 14:19:33 41.1 36.0-45.2 (%) Final MCV 05/20/2023 14:19:33 89.2 81.5-97.5 (fL) Final MCH 05/20/2023 14:19:33 28.9 27.0-34.0 (pg) Final MCHC 05/20/2023 14:19:33 32.4 32.0-36.0 (g/dL) Final RDW 05/20/2023 14:19:33 14.4 11.5-15.5 (%) Final Platelets 05/20/2023 14:19:33 173 140-400 (K /uL) Final MPV 05/20/2023 14:19:33 11.5 6.6-11.1 ( fL) Final Nucleated erythrocytes/100 leukocytes [Ratio] in Blood by Automated count 05/20/2023 14:19:33 0 <=0 (/100 WBCs) Fi nal Performing Location LABORATORY [facility] - [address] [place] [address]
--- OUTSIDE RECORDS SUMMARY | 2023-11-06 03:27 | External Medical Summary | Summary of Care ---
Author Name Unknown Organization [facility] Address [address] [place] [address] Phone [phone] Care Team Providers Care Tallow Maker Name Role Phone Unavailable Primary Care Provider Unavailabl e Reason for Visit * Reason Comments Outpatient Testing Encounter Details Date Type Department Care Team (Late st Contact Info) Description 05/20/2023 2:40 PM EST Laboratory Laboratory, [facility] [address] [facility] [phone] [facility] [address] [facility] [address] Supervision of normal first , antepartum Allergies No known active allergiesdocumented as of [...] money to get more. Never true 05/17/2023 [place] Depression Scale Answer Date Recorded [place] Depression Scale Total 2 05/20/2023 The thought [...] Description 06/20/2023 1:00 PM EDT [facility] [address] [place] [phone] [facility] [place] [address] 06/20/2023 1:30 PM EDT Office Visit Gynecology/Obstetrics [facility] [address] [place] [address] Rosalie Dykes CRNP [address] [place] [address] Pending Results Name Type Priority Associated Diagnoses Date /Time TYPE AND SCREEN Lab Routine Supervision of [...] first , antepartum 05/20/2023 2:19 PM EST CBC WITH WBC DIFFERENTIAL AND [...] first , antepartum 05/20/2023 2:19 PM EST ANEMIA CBC Lab Routine Supervision of normal first , antepartum 05/20/2023 2:19 PM EST DIFFERENTIAL, AUTOMATED Lab Routine Supervision of normal first , antepartum 05/20/2023 2:19 PM EST ANEMIA REFLEX CHEMISTRY HOLD Lab Routine Supervision of normal first , antepartum 05/20/2023 2:19 PM EST HEPATITIS C ANTIBODY Lab Routine Supervision of normal first , antepartum 05/20/2023 2:19 PM EST HEPATITIS C RNA ADD ON Lab Routine Supervision of normal first , antepartum 05/20/2023 2:19 PM EST SYPHILIS ANTIBODY SCREEN Lab Routine Supervision of normal first , antepartum 05/20/2023 2:19 PM EST Health Maintenance Due Date Last Done Comments [...] Diagnosis Supervision of normal first , antepartum documented in this encounter
--- OUTSIDE RECORDS SUMMARY | 2023-11-06 03:27 | External Medical Summary ---
Author Name Unknown Address Unknown Organization K01:LABORATORY C - [address] [address] Laboratory Report Ordering Provider Test Date Status ARGENTINA POWELL 05/20/2023 14:19:33 Final Observation Date Value Abnormality Reference (Units ) Status Rubella virus IgG Ab [Presence] in Serum 05/20/2023 14:19:33 Positive Abnormal Negative Final A positive result is consist ent with having had rubella virus or vaccination. Performing Location LABORATORY [facility] - [address] [place] [address]
--- OUTSIDE RECORDS SUMMARY | 2023-11-06 08:01 | External Medical Summary | Summary of Care ---
Author Name Unknown Organization [facility] Address [address] [place] [facility] [place] [address] Phone [phone] Care Team Providers Care Work Station Support Specialist Name Role Phone Unavailable Primary Care Provider Unavailabl e Reason for Visit * Reason Comments Return Visit Encounter Details Date Type Department Care Team (Late st Contact Info) Description 11/05/2023 4:15 PM EDT Office Visit Gynecology/Obstetric s [facility] [address] [facility] [place] [address] Nuno Phelps CNM [address] [facility] [place] [address] High-risk in third trimester*; Obesity, Class II, BMI 35-39.9; Antepartum anemia complicating ; Gestational hypertension without significant proteinuria in third trimester Allergies No known active allergiesdocumented as of this encounter (statuses as of 11/05/2023) Medications Medication Sig Dispensed Refills Start Date End Date Status /Iron Oral Tablet Take by mouth. Active documented as of this encounter (statuses as of 11/05/2023) Active Problems Problem Noted Date Diagnosed Date [...] as of this encounter (statuses as of 11/05/2023) Resolved Problems Problem Noted Date Diagnosed Date Resolved Date Elevated blood pressure, situational 10/22/2023 10/24/2023 Overview: 140/90 10/22/23; preE labs sent Supervision of normal first , antepartum 05/20/2023 10/24/2023 documented as of this encounter (statuses as of 11/05/2023) Immunizations Name Administration Dates Next Due TDAP, [...] money to get more. Never true 05/17/2023 [place] Depression Scale Answer Date Recorded [place] Depression Scale Total 2 05/20/2023 The thought [...] Sign Reading Time Taken Comments Blood Pressure 132/90 11/05/2023 3:32 PM EDT Pulse - - Temperature - - Respiratory Rate - - Oxygen Saturation - - Inhaled Oxygen Concentration - - Weight 103.9 kg (229 lb) 11/05/2023 3:32 PM EDT Height - - Body Mass Index 40.57 10/25/2023 3:14 PM EDT documented in this encounter Progress Notes * Nuno Phelps CNM - 11/05/2023 3:49 PM EDT KAILYN at 35w0d Completing weekly BPPs in leiu of twice weekly NSTs. BPP noted to be 4/8 today. Patient feeling good FM. She denies any s/s of PEC. She has been checking BP at home 110s-130s/80s-90s. GBS completed. Discussed BPP in detail with patient aware needs further monitoring at this time. She is agreeable to be triaged at L&D. Dr. Mckinnon integration manager physician called and made aware. * Patricia Looney MED ASSIST - 11/05/2023 3:32 PM EDT 35w0d Denies vaginal bleeding/rom + movements documented in this encounter Plan of Treatment Upcoming Encounters Date Type Department Care Team (Late st Contact Info) Description 11/07/2023 4:15 PM EDT Telemedicine Wire Coiler Machine Operator Obstetric [facility] [address] [place] [address] Stephanie Hall CRNP [address] [place] [address] 11/11/2023 2:30 PM EDT Pharmacy Pharmacy, [place] [address] [place], [place] [id number] Clinic, [facility] [address] [place] [address] 11/12/2023 2:45 PM EDT Imaging Radiology [facility] 2nd [facility] [address] [facility] [place] [address] 11/12/2023 3:30 PM EDT Office Visit Gynecology/Obstetrics [facility] 132 [facility] [place] [address] Arely Canales PA-C [address] [place], [place] [address] [address] 11/19/2023 8:00 AM EDT Office Visit Gynecology/Obstetrics [facility] [address] [facility] [place] [address] Rosalie Dykes CRNP [address] [place] [address] 11/19/2023 8:30 AM EDT Office Visit Wire Coiler Machine Operator Obstetrics [facility] [address] [place] [address] Kasey Condon, [address] [place] [address] 11/19/2023 8:30 AM EDT Imaging Radiology [place] [address] [place] [address] Pending Results Name Type Priority Associated Diagnoses Date /Time GROUP B STREP CULTURE/PCR Lab Routine High-risk in third trimester 11/05/2023 3:52 PM EDT Health Maintenance Due Date Last [...] as of this encounter Visit Diagnoses Diagnosis High-risk in third trimester- Primary Obesity, Class II, BMI 35-39.9 Morbid obesity Antepartum anemia complicating Anemia, antepartum Gestational hypertension without significant proteinuria in third trimester Transient hypertension of , antepartum documented in this encounter
--- OUTSIDE RECORDS SUMMARY | 2023-11-06 08:01 | External Medical Summary | Summary of Care ---
Author Name Unknown Organization [facility] Address [address] [facility] [address] Phone [phone] Care Team Providers Care Stoneworking Sander Name Role Phone Unavailable Primary Care Provider Unavailabl e Reason for Visit * Reason Comments Return Visit Encounter Details Date Type Department Care Team (Late st Contact Info) Description 11/05/2023 4:15 PM EDT Office Visit Gynecology/Obstetric s [facility] 132 [facility] [place] [address] Nuno Phelps CNM 400 [facility] [place] [address] High-risk in third trimester*; Obesity, Class II, [...] money to get more. Never true 05/17/2023 [place] Depression Scale Answer Date Recorded [place] Depression Scale Total 2 05/20/2023 The thought [...] to be triaged at L&D. Dr. Mckinnon center consultant physician called and made aware. * Patricia Looney MED ASSIST - 11/05/2023 3:32 PM EDT 35w0d Denies vaginal bleeding/rom + movements documented in this encounter Plan of Treatment Upcoming Encounters Date Type Department Care Team (Late st Contact Info) Description 11/07/2023 4:15 PM EDT Telemedicine Laboratory Animal Facility Supervisor Obstetric [facility] [address] [place] [address] Stephanie Hall CRNP [address] [place] [address] 11/11/2023 2:30 PM EDT Pharmacy Pharmacy, [place] [address] [place], [place] [id number] Clinic, [facility] [address] [place] [address] 11/12/2023 2:45 PM EDT Imaging Radiology [facility] 2nd [facility] 132 [facility] [place] [address] 11/12/2023 3:30 PM EDT Office Visit Gynecology/Obstetrics [facility] 132 [facility] [place] [address] Arely Canales PA-C [address] [place], [place] [address] [address] 11/19/2023 8:00 AM EDT Office Visit Gynecology/Obstetrics [facility] [address] [facility] [place] [address] Rosalie Dykes CRNP [address] [facility] [address] 11/19/2023 8:30 AM EDT Office Visit Laboratory Animal Facility Supervisor Obstetrics [facility], [place] [address] [place] [address] Kasey Condon, [address] [place] [address] 11/19/2023 8:30 AM EDT Imaging Radiology [place] [address] [place] [address] Pending Results Name Type Priority Associated Diagnoses [...]
--- OUTSIDE RECORDS SUMMARY | 2023-11-06 08:01 | External Medical Summary | Summary of Care ---
Author Name Unknown Organization [facility] Address [address] [facility] [place] [address] Phone [phone] Care Team Providers Care Tissue Rewinder Name Role Phone Unavailable Primary Care Provider Unavailabl e Encounter Details Date Type Department Care Team (Late st Contact Info) Description 11/05/2023 Result Scan Unspecified Department <No scans attached> Allergies No known active allergiesdocumented as of this encounter (statuses as of 11/06/2023) Medications Medication Sig Dispensed Refills Start Date End Date Status /Iron Oral Tablet Take by mouth. Active documented as of this encounter (statuses as of 11/06/2023) Active Problems Problem Noted Date Diagnosed Date [...] as of this encounter (statuses as of 11/06/2023) Resolved Problems Problem Noted Date Diagnosed Date Resolved Date Elevated blood pressure, situational 10/22/2023 10/24/2023 Overview: 140/90 10/22/23; preE labs sent Supervision of normal first , antepartum 05/20/2023 10/24/2023 documented as of this encounter (statuses as of 11/06/2023) Immunizations Name Administration Dates Next Due TDAP, [...] money to get more. Never true 05/17/2023 [place] Depression Scale Answer Date Recorded [place] Depression Scale Total 2 05/20/2023 The [...] Care Team (Late st Contact Info) Description 11/11/2023 2:30 PM EDT Pharmacy Pharmacy, [place] [address] [facility] [place] [address] Clinic, [facility] [address] [facility] [place] [address] 11/12/2023 2:45 PM EDT Imaging Radiology [facility] 2nd [facility] [address] [place] [address] 11/12/2023 3:30 PM EDT Office Visit Gynecology/Obstetrics [facility] [address] [address] Arely Canales PA-C [address] [place] [address] [place] [address] 11/19/2023 8:00 AM EDT Office Visit Gynecology/Obstetrics [facility] [address] [place] [address] Rosalie Dykes CRNP [address] [place] [address] 11/19/2023 8:30 AM EDT Office Visit Graphic Pre Press Trades Worker Obstetrics [facility], [place] [address] [place] [address] Taurus Kasey [facility] [address] [place] [address] 11/19/2023 8:30 AM EDT Imaging Radiology [facility], [place] [address] [place] [address] Health Maintenance Due Date Last Done Comments [...] Procedure Name Priority Date/Time Associated Diagnosis Comments RADIOLOGY SCANNED RESULT 11/05/2023 documented in this encounter Results * RADIOLOGY SCANNED RESULT (11/05/2023) 11/05/2023 No Physician Data Unknown DIAGNOSTIC RAD IOLOGY SERVICES documented in this encounter
[2023-11-06] MEDS ORDERED: FAMOTIDINE 20 MG TAB PO SCH (09:00)
[2023-11-06 09:07] VITALS: BP 123/76; PULSE 133
[2023-11-06 09:22] VITALS: TEMP 98.2
--- NOTE | 2023-11-06 10:23 | Ultrasound Report ---
US OB BPP wo NST single CLINICAL HISTORY: follow up COMPARISON STUDY: OB ultrasound biophysical profile November 05, 2023. TECHNIQUE: Transabdominal sonography of the pelvis was performed to assess biophysical profile. FINDINGS: Single viable intrauterine gestation is noted. heart rate is normal ranging from 153 2 165 bpm. Presentation is cephalic. Amniotic fluid index is normal at 12.98 cm. There was normal fet al breathing, movement and tone. Biophysical profile is 8 out of 8. IMPRESSION: 1. Normal biophysical profile 8 out of 8. 2. Single viable intrauterine gestation with cephalic presentation. ACT 112: Negative or not required by law. Electronically signed by: Mike Melo M.D. 11/06/2023 10:21 AM
--- NOTE | 2023-11-06 11:07 | Progress Note ---
Date of Service November 06, 2023 Assessment & Plan (1) Decreased movement affecting management of in third trimester: Plan: BPP 10/30 pt discharged home with instructions Admission and Anticipated Discharge Date Admission Date: November 05, 2023 Results & Data Vital Signs (Past 12 Hours) Vital Signs Temp Pulse Resp BP 11/06/23 09:06 36.8 C 133 H 18 123/76 11/06/23 04:04 36.6 C 89 18 136/78 11/05/23 23:40 18 11/05/23 23:40 36.6 C 18 11/05/23 23:40 118 H 11/05/23 23:40 137/83
== END 2023-11-06 11:20 | disposition home or self-care (01) ==
LOC: OPB 16:18 → 4S1 16:18
DX: O36.8130 Decreased fetal movements, third trimester, not applicable or unspecified; Z3A.35 35 weeks gestation of pregnancy

== ENCOUNTER 2023-11-20 07:48 | Inpatient (IN) ==
[2023-11-20] MEDS ORDERED: LIDOCAINE 1% LOCAL 20 ML VIAL INFIL PRN (10:38)
[2023-11-20] MEDS ORDERED: OXYTOCIN 30 UNITS/NSS 30 UNITS/500 ML BAG IV PRN (10:38)
[2023-11-20] MEDS ORDERED: ACETAMINOPHEN 325 MG TAB PO PRN (10:38)
[2023-11-20] MEDS: miSOPROStoL 50 MCG TAB PO ONE (10:55)
[2023-11-20] MEDS: LACTATED RINGER'S 1,000 ML IV PRN (11:02)
[2023-11-20] MEDS: PENICILLIN GK 6 MU in DEXTROSE 5% 250 ML IV STA (11:06)
[2023-11-20 11:55] LABS: Hematocrit (blood only) 36.6 % (37.0-47.0); Hemoglobin 11.6 g/dl (12.0-16.0); Mean Corpuscular Hemoglobin 25.2 pg (25.0-34.0); Mean Corpuscular Hgb Conc 31.7 g/dL (32.0-36.0); Mean Corpuscular Volume 79.6 fL (80.0-100.0); RDW Coefficient of Variation 23.9 % (11.5-14.5); RDW Standard Deviation 65.4 fL (36.4-46.3); White Blood Count 9.28 K/ul (4.8-10.8)
--- OUTSIDE RECORDS SUMMARY | 2023-11-20 14:02 | External Medical Summary | Summary of Care ---
Author Name Unknown Organization [facility] Address [address] [facility] [place] [address] Phone [phone] Care Team Providers Care Washer Engineer Helper Name Role Phone Unavailable Primary Care Provider Unavailabl e Reason for Visit * Reason Comments Return Visit Encounter Details Date Type Department Care Team (Late st Contact Info) Description 11/19/2023 10:00 AM EDT Office Visit Gynecology/Obstetric s Shital Berg 132 [place] [address] Rosalie Dykes CRNP [address] [place] [address] High-risk in third trimester*; Obesity, Class II, BMI 35-39.9; Antepartum anemia complicating ; Gestational hypertension without significant proteinuria in third trimester; GBS carrier Allergies No known active allergiesdocumented as of this encounter (statuses as of 11/19/2023) Medications Medication Sig Dispensed Refills Start Date End Date Status /Iron Oral Tablet Take by mouth. Active documented as of this encounter (statuses as of 11/19/2023) Active Problems Problem Noted Date Diagnosed Date GBS carrier 11/12/2023 Gestational hypertension wit hout significant proteinuria in third trimester 10/24/2023 Overview: PCR, CMP, PLT repeated 11/11. Awaiting results. IOL scheduled at 37w2d at [facility] 11/21/2023 High-risk 10/24/2023 Iron deficiency anemia 10/15/2023 Antepartum anemia complicating 07/02/2 024 Overview: Anemia at 29w, recommend IV [...] as of this encounter (statuses as of 11/19/2023) Resolved Problems Problem Noted Date Diagnosed Date Resolved Date Elevated blood pressure, situational 10/22/2023 10/24/2023 Overview: 140/90 10/22/23; preE labs sent Supervision of normal first , antepartum 05/20/2023 10/24/2023 documented as of this encounter (statuses as of 11/19/2023) Immunizations Name Administration Dates Next Due TDAP, [...] money to get more. Never true 05/17/2023 [place] Depression Scale Answer Date Recorded [place] Depression Scale Total 2 05/20/2023 The thought [...] No 05/17/2023 Does the household have a [facility] source of income? (Household - for ages [...] Reading Time Taken Comments Blood Pressure 138/86 11/19/2023 9:22 AM EDT Pulse - - Temperature - - Respiratory Rate - - Oxygen Saturation - - Inhaled Oxygen Concentration - - Weight 103.2 kg (227 lb 9.6 oz) 11/19/2023 9:22 AM EDT Height 160 cm (5' 3") 11/19/2023 9:22 AM EDT Body Mass Index 40.32 11/19/2023 9:22 AM EDT documented in this encounter Progress Notes * Rosalie Dykes CRNP - 11/19/2023 10:15 AM EDT 37w BPP today 10/30. MICHAEL 5.4cm today, last week was 14cm. We discussed ROM at length, she denies. Baby is active. No bleeding, no contractions. IOL tomorrow for GHTN, aware to call in AM for time. Reviewed drop in MICHAEL with Dr. Santizo, feels appropriate to wait until tomorrow for IOL. CARMELO Traylor documented in this encounter Nursing Notes * Marissa Nuñez LPN - 11/19/2023 9:47 AM EDT 37w0d Denies concerns IOL tomorrow documented in this encounter Plan of Treatment Upcoming Encounters Date Type Department Care Team (Late st Contact Info) Description 12/02/2023 9:30 AM EDT Pharmacy Pharmacy, [address] [address] [facility], [address] [address] Health Maintenance Due Date Last Done Comments Depression Screening 2002 COVID-19 Vaccine ( season) 2022 04/20/2020, 03/30/2020 Influenza Vaccine (FLU shot) (#1) 2023 01/28/2023, 01/08/2018, 01/31/2014 GFR 11/11/2024 11/12/2023, 09/24, 09/20/2023 Pap Smear 05/20/2026 05/20/2023 Cervical Cancer Screening 05/20/2028 HPV/Co-Test 05/20/2028 05/20/2023 DTap/Tdap Vaccines (8 - Td or Tdap) 10/07/2033 [...] third trimester Transient hypertension of , antepartum GBS carrier Carrier or suspected carrier of Group B streptococcus documented in this encounter
--- OUTSIDE RECORDS SUMMARY | 2023-11-20 14:02 | External Medical Summary | Summary of Care ---
Author Name Unknown Organization [facility] Address [address] [facility] [place] [address] Phone [phone] Care Team Providers Care Geotechnical Department Manager Name Role Phone Unavailable Primary Care Provider Unavailabl e Reason for Visit * Reason Comments Return Visit Encounter Details Date Type Department Care Team (Late st Contact Info) Description 11/12/2023 3:30 PM EDT Office Visit Gynecology/Obstetric s [facility] 132 [facility] [place] [address] J Carlos Steinberg PA-C [address] [place] [phone] High-risk in third trimester*; Gestational hypertension without significant proteinuria in third trimester; Obesity, Class II, BMI 35-39.9; Antepartum anemia complicating ; GBS carrier Allergies No known active allergiesdocumented as of this encounter (statuses as of 11/13/2023) Medications Medication Sig Dispensed Refills Start Date End Date Status /Iron Oral Tablet Take by mouth. Active documented as of this encounter (statuses as of 11/13/2023) Active Problems Problem Noted Date Diagnosed Date GBS carrier 11/12/2023 Gestational hypertension wit hout significant proteinuria in third trimester 10/24/2023 Overview: PCR, CMP, PLT repeated 11/11. Awaiting results. IOL scheduled at 37w2d at [facility] 11/21/2023 High-risk 10/24/2023 Iron deficiency anemia 10/15/2023 [...] as of this encounter (statuses as of 11/13/2023) Resolved Problems Problem Noted Date Diagnosed Date Resolved Date Elevated blood pressure, situational 10/22/2023 10/24/2023 Overview: 140/90 10/22/23; preE labs sent Supervision of normal first , antepartum 05/20/2023 10/24/2023 documented as of this encounter (statuses as of 11/13/2023) Immunizations Name Administration Dates Next Due TDAP, [...] money to get more. Never true 05/17/2023 [place] Depression Scale Answer Date Recorded [place] Depression Scale Total 2 05/20/2023 The thought [...] No 05/17/2023 Does the household have a [facility] source [facility]? (Household - for ages [...] Sign Reading Time Taken Comments Blood Pressure 132/86 11/12/2023 4:26 PM EDT Pulse - - Temperature - - Respiratory Rate - - Oxygen Saturation - - Inhaled Oxygen Concentration - - Weight 103.9 kg (229 lb) 11/12/2023 3:03 PM EDT Height - - Body Mass Index 40.57 10/25/2023 3:14 PM EDT documented in this encounter Progress Notes * J Carlos Steinberg PA-C - 11/12/2023 3:28 PM EDT Bela Dave is a 33 year old female here for her routine OB appointment at 36w0d Her Estimated Date of Delivery: 12/10/23 Initial BP today 158/96. Patient reports feeling stressed about her BPP. Recheck 132/86. Has been checking blood pressures at home. Ranges 130s/80-90s. Denies any PEC symptoms. She is planning [facility] delivery. Does not yet have date for IOL. Diagnosed with GHTN 10/22/2023 per review of EMR. Patient is not seeing MFM. Reviewed recommendation for delivery during 37th week secondary to gestational HTN and she is agreeable. Patient scheduled IOL 11/20 at [facility]. Electing for weekly BPPs versus 2x weekly NSTs. BPP today 10/30. REVIEW OF SYSTEMS She affirms movement. Denies vaginal bleeding, LOF, contractions, N/V, headaches, vision changes, chest pain, RUQ pain. PHYSICAL EXAM Filed Vitals: 11/12/23 1503 BP: 158/96 Weight: 103.9 kg (229 lb) Repeat BP 132/86 Fundal height: 36 cm ASSESSMENT/PLAN High-risk in third trimester (Primary) Gestational hypertension without significant proteinuria in third trimester - PROTEIN/ CREATININE RATIO, URINE - COMPREHENSIVE METABOLIC PANEL; Future; Expected date: 11/12/2023 - PLT; Future; Expected date: 11/12/2023 Obesity, Class II, BMI 35-39.9 Antepartum anemia complicating GBS carrier Supervision of - labor precautions and kick counts reviewed - PEC warning signs reviewed. Patient aware when to call. RTO in 1 week for KAILYN/BPP J Carlos Steinberg PA-C 11/12/2023 * Patricia Looney MED ASSIST - 11/12/2023 3:03 PM EDT 36w0d Denies any concerns BPP8/8 MICHAEL 14.3 Pts BP was 158/96 at arrival of visit. Retaken and was 132/86. Pt scheduled for IOL 11/19. documented in this encounter Miscellaneous Notes * Addendum Note - J Carlos Steinberg PA-C - 11/13/2023 1:02 PM EDT Addended by: J CARLOS STEINBERG on: 11/13/2023 01:02 PM Modules accepted: Orders documented in this encounter Plan of Treatment Upcoming Encounters Date Type Department Care Team (Late st Contact Info) Description 11/19/2023 9:00 AM EDT Imaging Radiology [facility] [address] [facility] 132 [facility] [place] [address] 11/19/2023 10:00 AM EDT Office Visit Gynecology/Obstetrics [facility] 132 [facility] [place] [address] Rosalie Dykes CRNP 132 [facility] [place] [address] 12/02/2023 9:30 AM EDT Pharmacy Pharmacy, [place] [address] [place], [place] [id number] Clinic, [facility] [address] [place] [address] Scheduled Orders Name Type Priority Associated Diagnoses Orde r Schedule PROTEIN/ CREATININE RATIO, URINE Lab Routine Gestational hypertension without significant proteinuria in third trimester Ordered: 11/13/2023 Health Maintenance Due Date Last Done Comments [...] filedocumented as of this encounter Results * PLT (11/12/2023 4:00 PM EDT) PLT 204 140 - 400 K/uL 11/12/2023 4:07 PM EDT LABORATORY [facility] [place] 57-10 Blood Venous blood specimen / Unknown Venipuncture / Unknown 11/12/2023 4:00 PM EDT 11/12/2023 4:00 PM EDT J Carlos Steinberg PA-C LAB BLOOD ORDERABLES LABORATORY [facility] [place] [address] [place] [address] [place] [address] * (ABNORMAL) COMPREHENSIVE METABOLIC PANEL (11/12/2023 4:00 PM EDT) BUN 10 6 - 20 mg/dL 11/13/2023 3:51 AM EDT LAB[facility]ATORY [facility] Creatinine 0.8 0.5 - 1.0 mg/dL 11/13/2023 3:51 AM EDT LABORATORY [facility] Estimated Glomerular Filtration Rate >90 >=60 mL/min 11/13/2023 3:51 AM EDT LABORATORY [facility] Comment:eGFR is calculated b ased on the CKD-EPI 2020 equation. Sodium 134(L) 135 - 146 mmol/L 11/13/2023 3:51 AM EDT LAB[facility]ATORY [facility] Potassium 4.0 3.5 - 5.1 mmol/L 11/13/2023 3:51 AM EDT LAB[facility]ATORY [facility] Chloride 101 98 - 107 mmol/L 11/13/2023 3:51 AM EDT LAB[facility]ATORY [facility] CO2 22 22 - 32 mmol/L 11/13/2023 3:51 AM EDT LAB[facility]ATORY [facility] Anion Gap 11 7 - 15 mmol/L 11/13/2023 3:51 AM EDT LAB[facility]ATORY [facility] Glucose 91 70 - 120 mg/dL 11/13/2023 3:51 AM EDT LAB[facility]ATORY [facility] Albumin 3.8 3.8 - 5.0 g/dL 11/13/2023 3:51 AM EDT LAB[facility]ATORY [facility] AST 21 10 - 35 U/L 11/13/2023 3:51 AM EDT LAB[facility]ATORY [facility] Alkaline Phosphatase 126 35 - 130 U/L 11/13/2023 3:51 AM EDT LAB[facility]ATORY [facility] Bilirubin, Total 0.2 <=1.2 mg/dL 11/13/2023 3:51 AM EDT LAB[facility]ATORY [facility] Calcium 9.6 8.4 - 10.2 mg/dL 11/13/2023 3:51 AM EDT LAB[facility]ATORY [facility] Protein 6.5 6.0 - 8.3 g/dL 11/13/2023 3:51 AM EDT LAB[facility]ATORY [facility] ALT 33 10 - 35 U/L 11/13/2023 3:51 AM EDT LAB[facility]ATORY [facility] Blood Venous blood specimen / Unknown Venipuncture / Unknown 11/12/2023 4:00 PM EDT 11/12/2023 4:00 PM EDT J Carlos Steinberg PA-C LAB BLOOD ORDERABLES LABORATORY [facility] [address] [place] [address] documented in this encounter Visit Diagnoses Diagnosis High-risk in third trimester- Primary Gestational hypertension without significant proteinuria in third trimester Transient hypertension of , antepartum Obesity, Class II, BMI 35-39.9 Morbid obesity Antepartum anemia complicating Anemia, antepartum GBS carrier Carrier or suspected carrier of Group B streptococcus documented in this encounter
--- OUTSIDE RECORDS SUMMARY | 2023-11-20 14:02 | External Medical Summary | Summary of Care ---
Author Name Unknown Organization [facility] Address [address] [facility] [place] [address] Phone [phone] Care Team Providers Care Obstetric Assistant Name Role Phone Unavailable Primary Care Provider Unavailabl e Encounter Details Date Type Department Care Team (Late st Contact Info) Description 11/19/2023 Orders Only PATIENT PORTAL DO NOT DELETE THIS DEPT USED BY [place] [id number] Allergies No known active allergiesdocumented as of [...] Awaiting results. 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 Never true 05/17/2023 [place] Depression Scale Answer Date Recorded [place] Depression Scale Total 2 05/20/2023 The thought [...] Description 11/19/2023 9:00 AM EDT Imaging Radiology [facility] 2nd [facility] [address] [place] [address] 11/19/2023 10:00 AM EDT Office Visit Gynecology/Obstetrics [facility] [address] [place] [address] Rosalie Dykes CRNP 132 [place] [address] 12/02/2023 9:30 AM EDT Pharmacy Pharmacy, [place] [address] [place] [address] Clinic, [facility] [address] [place] [address] Health Maintenance Due Date Last Done Comments [...]
--- OUTSIDE RECORDS SUMMARY | 2023-11-20 14:03 | External Medical Summary | Summary of Care ---
Author Name Unknown Organization [facility] Address [address] [facility] [place] [address] Phone [phone] Care Team Providers Care Operations Intern Name Role Phone Unavailable Primary Care Provider Unavailabl e Encounter Details Date Type Department Care Team (Late st Contact Info) Description 11/12/2023 Telephone Gynecology/Obstetrics [facility] 132 [facility] [place] [address] Arely Canales PA-Nyla 400 [facility] [place] [address] Allergies No known active allergiesdocumented as of [...] Awaiting results. IOL scheduled at 37w2d at [facility] 11/21/2023 High-risk 10/24/2023 Iron deficiency anemia [...] money to get more. Never true 05/17/2023 [place] Depression Scale Answer Date Recorded [place] Depression Scale Total 2 05/20/2023 The thought [...] Description 11/19/2023 9:00 AM EDT Imaging Radiology [facility] 2nd [facility] [address] [place] [address] 11/19/2023 10:00 AM EDT Office Visit Gynecology/Obstetrics [facility] 132 [place] [address] Rosalie Dykes CRNP 132 [place] [address] 12/02/2023 9:30 AM EDT Pharmacy Pharmacy, [address] [place] [address] Clinic, [facility] [address] [place] [address] Health Maintenance Due Date Last Done Comments Depression Screening 2002 COVID-19 Vaccine (2022- season) 2022 04/20/2020, 03/30/2020 [...]
--- OUTSIDE RECORDS SUMMARY | 2023-11-20 14:03 | External Medical Summary ---
Author Name Unknown Address Unknown Organization [id number]:LABORATORY [facility] [place] [address] [place] [address] Laboratory Report Ordering Provider Test Date Status IDRIS WHITMAN 11/12/2023 16:00:04 Final Observation Date Value Abnormality Reference (Units ) Status Platelets 11/12/2023 16:00:04 204 140-400 (K /uL) Final Performing Location LABORATORY [facility] [place] 57-[address] 0 - [address] [place] [address]
--- OUTSIDE RECORDS SUMMARY | 2023-11-20 14:03 | External Medical Summary ---
Author Name Unknown Address Unknown Organization [id number]:[place]ORY [facility] [place] [address] [facility] [address] [place] [address] Laboratory Report Ordering Provider Test Date Status IDRIS WHITMAN 11/12/2023 16:00:04 Final Observation Date Value Abnormality Reference (Units ) Status BUN 11/12/2023 16:00:04 10 6-20 (mg/dL) Final Creatinine 11/12/2023 16:00:04 0.8 0.5-1.0 (mg/dL) Final Glomerular filtration rate/1.73 sq M.predicted [Volume Rate/Area] in Serum, Plasma or Blood by Creatinine-based formula (CKD-EPI) 11/12/2023 16:00:04 >90 >=60 (mL/min) Final eGFR is calculated based on the CKD-EPI 2020 equation. Sodium 11/12/2023 16:00:04 134 Below low normal 135 -146 (mmol/L) Final Potassium 11/12/2023 16:00:04 4.0 3.5-5.1 (m mol/L) Final Cl 11/12/2023 16:00:04 101 98-107 (mm ol/L) Final CO2 11/12/2023 16:00:04 22 22-32 (mmo l/L) Final Anion gap 11/12/2023 16:00:04 11 7-15 (mmol /L) Final Glucose 11/12/2023 16:00:04 91 70-120 (mg /dL) Final Albumin 11/12/2023 16:00:04 3.8 3.8-5.0 (g /dL) Final AST (Aspartate aminotransferase) 11/12/2023 16:00:04 21 10-35 (U/L) Fin al Alk Phos 11/12/2023 16:00:04 126 35-130 (U/ L) Final Bilirubin, Total 11/12/2023 16:00:04 0.2 <=1 .2 (mg/dL) Final Calcium 11/12/2023 16:00:04 9.6 8.4-10.2 ( mg/dL) Final Protein 11/12/2023 16:00:04 6.5 6.0-8.3 (g /dL) Final ALT (Alanine aminotransferase) 11/12/2023 16:00:04 33 10-35 (U/L) Ganesh ware Performing Location LABORATORY [facility] [place] [address] [facility] [address]
--- OUTSIDE RECORDS SUMMARY | 2023-11-20 14:03 | External Medical Summary | Summary of Care ---
Author Name Unknown Organization [facility] Address [address] [facility] [place] [address] Phone [phone] Care Team Providers Care Material Analyst Name Role Phone Unavailable Primary Care Provider Unavailabl e Encounter Details Date Type Department Care Team (Late st Contact Info) Description 11/06/2023 Result Scan Unspecified Department Backer, CARMELO Velez [address] [place] [address] <No scans attached> Allergies No known active [...] money to get more. Never true 05/17/2023 [place] Depression Scale Answer Date Recorded [place] Depression Scale Total 2 05/20/2023 The thought [...] Description 11/11/2023 2:30 PM EDT Pharmacy Pharmacy, [place] [address] [place] [address] Clinic, [place] [address] [place] [address] 11/12/2023 2:45 PM EDT Imaging Radiology [facility] 2nd [facility] [address] [facility] [place] [address] 11/12/2023 3:30 PM EDT Office Visit Gynecology/Obstetrics [facility] [address] [place] [address] Arely Canales PA-C [facility] [address] 11/19/2023 8:00 AM EDT Office Visit Gynecology/Obstetrics [facility] [address] [facility] [place] [address] Rosalie Dykes CRNP [address] [place] [address] 11/19/2023 8:30 AM EDT Office Visit Bag Tester Obstetrics Maternal Medicine, [place] [address] [place] [address] Kasey Condon, [address] [place] [address] 11/19/2023 8:30 AM EDT Imaging Radiology [facility], [place] [address] [place], [place] [phone] Health Maintenance Due Date Last Done Comments [...] Date/Time Associated Diagnosis Comments RADIOLOGY SCANNED RESULT 11/06/2023 documented in this encounter Results * RADIOLOGY SCANNED RESULT (11/06/2023) 11/06/2023 Trina Cordon Backer [facility] documented in this encounter
--- OUTSIDE RECORDS SUMMARY | 2023-11-20 14:03 | External Medical Summary | Summary of Care ---
Author Name Unknown Organization [facility] Address [address] [place] [address] Phone [phone] Care Team Providers Care Manager Assembly Name Role Phone Unavailable Primary Care Provider Unavailabl e Reason for Visit * Reason Onset Date Comments Status Check Anemia Follow-Up 11/11/2023 Encounter Details Date Type Department Care Team (Late st Contact Info) Description 11/11/2023 2:30 PM EDT Pharmacy Pharmacy, [place] [address] [place], [place] [phone] Clinic, [place] [address] [place], [place] [phone] Iron deficiency anemia, unspecified iron deficiency anemia type* Allergies No known active allergiesdocumented as of this encounter (statuses as of 11/11/2023) Medications Medication Sig Dispensed Refills Start Date End Date Status /Iron Oral Tablet Take by mouth. Active documented as of this encounter (statuses as of 11/11/2023) Active Problems Problem Noted Date Diagnosed Date [...] as of this encounter (statuses as of 11/11/2023) Resolved Problems Problem Noted Date Diagnosed Date Resolved Date Elevated blood pressure, situational 10/22/2023 10/24/2023 Overview: 140/90 10/22/23; preE labs sent Supervision of normal first , antepartum 05/20/2023 10/24/2023 documented as of this encounter (statuses as of 11/11/2023) Immunizations Name Administration Dates Next Due TDAP, [...] money to get more. Never true 05/17/2023 [place] Depression Scale Answer Date Recorded [place] Depression Scale Total 2 05/20/2023 The thought [...] No 05/17/2023 Does the household have a presbyterian española hospitallar source of income? (Household - for ages [...] as of this encounter Progress Notes * Avril Mora RPh - 11/11/2023 10:20 AM EDT CBCd, ferritin, iron screen, retic panel, B12, FA ordered for 11/29/23. Avril Mora PharmD, [facility] Clinical Pharmacist [facility] (P: [phone]) 11/11/2023 10:20 AM * Terri Olivo, surface logging systems logger - 11/11/2023 9:13 AM EDT Patient Phone Numbers Call to patient to schedule labs. Patient received Infed on 10/31. Labs due on 11/28. GA: 35w6d Estimated Date of Delivery: 12/10/23 Pharmacist - please place appropriate lab orders. Thank you, Terri Olivo Electric Meter Tester [facility] 11/11/2023,9:15 AM documented in this encounter Plan of Treatment Upcoming Encounters Date Type Department Care Team (Late st Contact Info) Description 11/12/2023 2:45 PM EDT [facility] [address] [place] [address] 11/12/2023 3:30 PM EDT Office Visit Gynecology/Obstetrics [facility] [address] [place] [address] Arely Canales PA-C [address] [place] [address] 11/19/2023 8:00 AM EDT Office Visit Gynecology/Obstetrics [facility] [address] [place] [address] Rosalie Dykes CRNP [address] [place] [address] 11/19/2023 8:30 AM EDT Office Visit Dovetail Machine Operator Obstetrics Maternal Medicine, [place] [address] [place], [place] [phone] Kasey Condon, [address], [place] [phone] 11/19/2023 8:30 AM EDT Imaging Radiology [facility], [place] [address] [place], [place] [phone] 12/02/2023 9:30 AM EDT Pharmacy Pharmacy, [place] [address] [place], [place] [phone] [facility] [address] [place], [place] [phone] Scheduled Orders Name Type Priority Associated Diagnoses Orde r Schedule CBC WITH WBC DIFFERENTIAL Lab Routine Iron deficiency anemia, unspecified iron deficiency anemia type Expected: 11/29/2023, Expires: 10/10/2024 IRON SCREEN, INCLUDING TIBC Lab Routine Iron deficiency anemia, unspecified iron deficiency anemia type Expected: 11/29/2023, Expires: 10/10/2024 FERRITIN Lab Routine Iron deficiency anemia, unspecified iron deficiency anemia type Expected: 11/29/2023, Expires: 10/10/2024 RETICULOCYTE PANEL Lab Routine Iron deficiency anemia, unspecified iron deficiency anemia type Expected: 11/29/2023, Expires: 10/10/2024 VITAMIN B12 Lab Routine Iron deficiency anemia, unspecified iron deficiency anemia type Expected: 11/29/2023, Expires: 10/10/2024 FOLIC ACID Lab Routine Iron deficiency anemia, unspecified iron deficiency anemia type Expected: 11/29/2023, Expires: 10/10/2024 Health Maintenance Due Date Last Done Comments [...]
--- OUTSIDE RECORDS SUMMARY | 2023-11-20 14:03 | External Medical Summary | Summary of Care ---
Author Name Unknown Organization [facility] Address [address] [facility] [address] Phone [phone] Care Team Providers Care Library Historian Name Role Phone Unavailable Primary Care Provider Unavailabl e Reason for Visit * Reason Comments Outpatient Testing Encounter Details Date Type Department Care Team (Late st Contact Info) Description 11/12/2023 4:10 PM EDT Laboratory Laboratory, [facility] [phone] [facility] [address] [employer] Other*[id number]; Gestational hypertension without significant proteinuria in third trimester Allergies No known active allergiesdocumented as of this encounter (statuses as of 11/12/2023) Medications Medication Sig Dispensed Refills Start Date End Date Status /Iron Oral Tablet Take by mouth. Active documented as of this encounter (statuses as of 11/12/2023) Active Problems Problem Noted Date Diagnosed Date GBS carrier 11/12/2023 Gestational hypertension wit hout significant proteinuria in third trimester 10/24/2023 Overview: PCR, CMP, PLT repeated 11/11. Awaiting results. IOL scheduled at 37w2d at [facility] 11/21/2023 High-risk 10/24/2023 Iron deficiency [...] as of this encounter (statuses as of 11/12/2023) Resolved Problems Problem Noted Date Diagnosed Date Resolved Date Elevated blood pressure, situational 10/22/2023 10/24/2023 Overview: 140/90 10/22/23; preE labs sent Supervision of normal first , antepartum 05/20/2023 10/24/2023 documented as of this encounter (statuses as of 11/12/2023) Immunizations Name Administration Dates Next Due TDAP, [...] money to get more. Never true 05/17/2023 [place] Depression Scale Answer Date Recorded [place] Depression Scale Total 2 05/20/2023 The thought [...] No 05/17/2023 Does the household have a up health systemr source of income? (Household - for ages [...] Description 11/19/2023 9:00 AM EDT Imaging Radiology [facility] 2nd [facility] [address] [place] [address] 11/19/2023 10:00 AM EDT Office Visit Gynecology/Obstetrics [facility] [address] [place] [address] Rosalie Dykes CRNP 132 [place] [address] 12/02/2023 9:30 AM EDT Pharmacy Pharmacy, [place] [address] [place] [address] Clinic, [facility] [address] [place] [address] Pending Results Name Type Priority Associated Diagnoses Date /Time MYCODE SUBSEQUENT ADULT Lab Routine [employer] Other*[id number] 11/12/2023 4:00 PM EDT COMPREHENSIVE METABOLIC PANEL Lab Routine Gestational hypertension without significant proteinuria in third trimester 11/12/2023 4:00 PM EDT MYCODE SST1 Lab Routine [employer] Other*[id number] 11/12/2023 4:00 PM EDT MYCODE SST2 Lab Routine [employer] Other*[id number] 11/12/2023 4:00 PM EDT Health Maintenance Due Date Last [...] Procedure Name Priority Date/Time Associated Diagnosis Comments PLT Routine 11/12/2023 4:00 PM EDT Gestational hypertension without significant proteinuria in third trimester documented in this encounter Results * PLT (11/12/2023 4:00 PM EDT) PLT 204 140 - 400 K/uL 11/12/2023 4:07 PM EDT LAB[facility]ORY [place] 57-10 Blood Venous blood specimen / Unknown Venipuncture / Unknown 11/12/2023 4:00 PM EDT 11/12/2023 4:00 PM EDT Arely Canales PA-C LAB BLOOD ORDERABLES [facility] [place] 57-10 132 [facility] [place] [address] documented in this encounter Visit Diagnoses Diagnosis [employer] Other*[id number] Gestational hypertension without significant proteinuria in third trimester Transient hypertension of , antepartum documented in this encounter
--- OUTSIDE RECORDS SUMMARY | 2023-11-20 14:03 | External Medical Summary | Summary of Care ---
Author Name Unknown Organization [facility] Address [address] [place] [address] Phone [phone] Care Team Providers Care Farm Equipment Engine Mechanic Name Role Phone Unavailable Primary Care Provider Unavailabl e Reason for Visit * Reason Onset Date Comments Referral 10/24/2023 Encounter Details Date Type Department Care Team (Late st Contact Info) Description 10/24/2023 Telephone Harvest Supervisor Obstetrics Maternal Medicine, [place] [address] [place] [address] [place], Nurse Harvest Supervisor [facility] [address] [place], [place] [phone] Referral Allergies No known active allergiesdocumented as of [...] Awaiting results. IOL scheduled at 37w2d at [facility] 11/21/2023 High-risk 10/24/2023 Iron deficiency anemia [...] money to get more. Never true 05/17/2023 [place] Depression Scale Answer Date Recorded [place] Depression Scale Total 2 05/20/2023 The thought [...] encounter Miscellaneous Notes * Telephone Encounter - Natasha Kirk OSA - 11/13/2023 7:52 AM EDT Called patient to reschedule HOUSECLEANER FLOOR Consult. Patient stated that she is getting induced next week and that there is no point in scheduling the HOUSECLEANER FLOOR consult or the anatomy scan. I left the patient know thatI would document that in her chart. * Telephone Encounter - Che Leon OSA - 11/07/2023 8:03 AM EDT Called and spoke with pt. on 11/11 was rescheduled at a different time already. Tried rescheduling video HOUSECLEANER FLOOR visit with M, pt. Stated she did not want to do so because of insurance purposes. I explained that is our standard practice and we need the HOUSECLEANER FLOOR consult in order to do the US on 11/18, she stated she would call her OB provider and call back. * Telephone Encounter - Kalli Manriquez CCMA - 11/06/2023 7:38 AM EDT Patient cancelled HOUSECLEANER FLOOR consult (11/06) and ultrasound (11/11), please contact to reschedule. * Telephone Encounter - Natasha Kirk OSA - 10/24/2023 3:46 PM EDT Spoke with Bela. Appointment scheduled. Patient aware of date, time and location of Maternal Medicine appointment. * Telephone Encounter - Natasha Kirk OSA - 10/24/2023 9:03 AM EDT Phone call to patient. Left message on Bela's voice mail. Encouraged patient to return call to [facility] to assist with scheduling. Sent MyG * Telephone Encounter - Kalli Manriquez CCMA - 10/24/2023 8:44 AM EDT Estimated Date of Delivery: 12/10/23 Please schedule for 45 MINUTE CONSULT SIMPLE MEDICAL WITH HOUSECLEANER FLOOR, in time frame of within 1 week at [facility] with the indication of GHTN. Please schedule anatomy within 1-3 weeks. Referring Provider: Trina Morin CRNP documented in this encounter Plan of Treatment Upcoming Encounters Date Type Department Care Team (Late st Contact Info) Description 11/19/2023 9:00 AM EDT Imaging Radiology [facility] 2nd [facility] [address] [place] [address] 11/19/2023 10:00 AM EDT Office Visit Gynecology/Obstetrics [facility] [address] [place] [address] Rosalie Dykes CRNP [address] [place] [address] 12/02/2023 9:30 AM EDT Pharmacy Pharmacy, [place] [address] [place] [address] Clinic, [place] [address] [place] [address] Health Maintenance Due Date Last Done Comments [...]
--- OUTSIDE RECORDS SUMMARY | 2023-11-20 14:03 | External Medical Summary ---
Author Name Unknown Address Unknown Organization K01:[facility] [place] [address] [place] [address] Laboratory Report Ordering Provider Test Date Status MARY PARKER 11/12/2023 16:00:04 Final Observation Date Value Abnormality Reference (Units ) Status MYCODE SPECIMEN-SST 11/12/2023 16:00:04 Freezing of extracted DNA, whole blood and/or serum. Final Performing Location [facility] [place] [address] [place] [address]
--- OUTSIDE RECORDS SUMMARY | 2023-11-20 14:03 | External Medical Summary ---
Author Name Unknown Address Unknown Organization K01:[facility]ATORY [facility] [place] - [facility] [address] [place] [address] Laboratory Report Ordering Provider Test Date Status FREDERICK ZUNIGA 11/05/2023 15:52:19 Final Observation Date Value Abnormality Reference (Units ) Status Streptococcus agalactiae DNA [Presence] in Specimen by AR with probe detection 11/05/2023 15:52:19 Positive Abnormal Negative Final Group B Streptococcus detect ed by culture-enhanced PCR (amplified probe). GBS GBSCT - [facility] 11/05/2023 15:52:19 15.9 Final GBS SPCCT - [facility] 11/05/2023 15:52:19 0.0 Final Performing Location LABORATORY [facility] [place] - [address] [place] [address]
--- OUTSIDE RECORDS SUMMARY | 2023-11-20 14:03 | External Medical Summary | Summary of Care ---
Author Name Unknown Organization [facility] Address [address] [facility] [place] [address] Phone [phone] Care Team Providers Care Refrigerator Crater Name Role Phone Unavailable Primary Care Provider Unavailabl e Reason for Visit * Reason Comments Return Visit Encounter Details Date Type Department Care Team (Late st Contact Info) Description 11/12/2023 3:30 PM EDT Office Visit Gynecology/Obstetric s [facility] 132 [facility] [place] [address] Arely Canales PA-C [address] [place] [phone] High-risk in third trimester*; Gestational hypertension without [...] Awaiting results. IOL scheduled at 37w2d at [facility] 11/21/2023 High-risk 10/24/2023 Iron deficiency anemia [...] money to get more. Never true 05/17/2023 [place] Depression Scale Answer Date Recorded [place] Depression Scale Total 2 05/20/2023 The [...] No 05/17/2023 Does the household have a [facility] source of income? (Household - for [...] documented in this encounter Progress Notes * Arely Canales PA-C - 11/12/2023 3:28 PM EDT Bela Dave is a 33 year old female here for her routine OB appointment at 36w0d Her Estimated Date of Delivery: 12/10/23 Initial BP today 158/96. Patient reports feeling stressed about her BPP. Recheck 132/86. Has been checking blood pressures at home. Ranges 130s/80-90s. Denies any PEC symptoms. She is planning [facility] delivery. Does not yet have date for IOL. Diagnosed with GHTN 10/22/2023 per review of EMR. Patient is not seeing MFM. Reviewed recommendation for delivery during 37th week secondary to gestational HTN and she is agreeable. Patient scheduled IOL 11/20 at [facility]. Electing for weekly BPPs versus 2x weekly [...] call. RTO in 1 week for KAILYN/BPP Arely Canales PA-C 11/12/2023 * Patricia Looney MED ASSIST - 11/12/2023 3:03 PM EDT 36w0d Denies any concerns BPP8/8 MICHAEL 14.3 Pts BP was 158/96 at arrival of visit. Retaken and was 132/86. Pt scheduled for IOL 11/19. documented in this encounter Plan of Treatment Upcoming Encounters Date Type Department Care Team (Late st Contact Info) Description 11/19/2023 9:00 AM EDT Imaging Radiology [facility] 2nd [facility] [place] [address] 11/19/2023 10:00 AM EDT Office Visit Gynecology/Obstetrics [facility] [address] [place] [address] Rosalie Dykes CRNP [address] [place] [address] 12/02/2023 9:30 AM EDT Pharmacy Pharmacy, [place] [address] [place], [place] [phone] Clinic, [place] [address] [place] [address] Pending Results Name Type Priority Associated Diagnoses Date /Time COMPREHENSIVE METABOLIC PANEL Lab Routine Gestational hypertension without significant proteinuria in third trimester 11/12/2023 4:00 PM EDT Scheduled Orders Name Type Priority Associated Diagnoses Orde r Schedule PROTEIN/ CREATININE RATIO, URINE Lab Routine Gestational hypertension without significant proteinuria in third trimester Ordered: 11/12/2023 COMPREHENSIVE METABOLIC PANEL Lab Routine Gestational hypertension without significant proteinuria in third trimester Expected: 11/12/2023 (Approximate), Expires: 11/11/2024 Health Maintenance Due Date Last Done Comments [...] 400 K/uL 11/12/2023 4:07 PM EDT LABORATORY [place] 57-10 Blood Venous blood specimen / Unknown Venipuncture / Unknown 11/12/2023 4:00 PM EDT 11/12/2023 4:00 PM EDT Arely Canales PA-C LAB BLOOD ORDERABLES [facility] [place] 57-10 132 [facility] [place] [address] documented in this encounter Visit Diagnoses Diagnosis High-risk in third trimester- Primary Gestational hypertension without significant proteinuria in third trimester Transient hypertension of , antepartum Obesity, Class II, BMI 35-39.9 Morbid obesity Antepartum anemia complicating Anemia, antepartum GBS carrier Carrier or suspected carrier of Group B streptococcus documented in this encounter
--- OUTSIDE RECORDS SUMMARY | 2023-11-20 14:03 | External Medical Summary ---
Author Name Unknown Address Unknown Organization K01:LABORATORY [facility] [place] [address] [place] [address] Laboratory Report Ordering Provider Test Date Status MARY PARKER 11/12/2023 16:00:04 Final Observation Date Value Abnormality Reference (Units ) Status MYCODE SPECIMEN-SST 11/12/2023 16:00:04 Freezing of extracted DNA, whole blood and/or serum. Final Performing Location LABORATORY [facility] [place] - [address] [place] [address]
--- OUTSIDE RECORDS SUMMARY | 2023-11-20 14:03 | External Medical Summary | Summary of Care ---
Author Name Unknown Organization [facility] Address [address] [place] [address] Phone [phone] Care Team Providers Care Bingo Floater Name Role Phone Unavailable Primary Care Provider Unavailabl e Reason for Visit * Reason Onset Date Comments Referral 10/24/2023 Encounter Details Date Type Department Care Team (Late st Contact Info) Description 10/24/2023 Telephone Windshield Technician Obstetrics Maternal Medicine, [place] [address] [place] [address] [place], Nurse Windshield Technician [facility] [address] [place], [place] [phone] Referral Allergies No known active allergiesdocumented as of this encounter (statuses as of 11/07/2023) Medications Medication Sig Dispensed Refills Start Date End Date Status /Iron Oral Tablet Take by mouth. Active documented as of this encounter (statuses as of 11/07/2023) Active Problems Problem Noted Date Diagnosed Date [...] as of this encounter (statuses as of 11/07/2023) Resolved Problems Problem Noted Date Diagnosed Date Resolved Date Elevated blood pressure, situational 10/22/2023 10/24/2023 Overview: 140/90 10/22/23; preE labs sent Supervision of normal first , antepartum 05/20/2023 10/24/2023 documented as of this encounter (statuses as of 11/07/2023) Immunizations Name Administration Dates Next Due TDAP, [...] money to get more. Never true 05/17/2023 [place] Depression Scale Answer Date Recorded [place] Depression Scale Total 2 05/20/2023 The thought [...] ages 0-17 years) Not on file 05/17/2023 Are you homeless or worried that [...] encounter Miscellaneous Notes * Telephone Encounter - Che Leon OSA - 11/07/2023 8:03 AM EDT Called and spoke with pt. US on 11/11 was rescheduled at a different time already. Tried rescheduling video TEXTILE DESIGNS SALES REPRESENTATIVE visit with PACO, pt. Stated she did not want to do so because of insurance purposes. I explained that is our standard practice and we need the TEXTILE DESIGNS SALES REPRESENTATIVE consult in order to do the US on 11/18, she stated she would call her OB provider and call back. * Telephone Encounter - Kalli Manriquez CCMA - 11/06/2023 7:38 AM EDT Patient cancelled TEXTILE DESIGNS SALES REPRESENTATIVE consult (11/06) and ultrasound (11/11), please contact [...] mail. Encouraged patient to return call to [facility] to assist with scheduling. Sent MyG * Telephone Encounter - Kalli Manriquez CCMA - 10/24/2023 8:44 AM EDT Estimated Date of Delivery: 12/10/23 Please schedule for 45 MINUTE CONSULT SIMPLE MEDICAL WITH TEXTILE DESIGNS SALES REPRESENTATIVE, in time frame of within 1 week at location [facility] with the indication of GHTN. Please schedule anatomy within 1-3 weeks. Referring Provider: Trina Morin CRNP documented in this encounter Plan of Treatment Upcoming Encounters Date Type Department Care Team (Late st Contact Info) Description 11/11/2023 2:30 PM EDT Pharmacy Pharmacy, [place] [address] [place] [address] Clinic, [place] [address] [place] [address] 11/12/2023 2:45 PM EDT Imaging Radiology [facility] 2nd [facility], [address] [place] [address] 11/12/2023 3:30 PM EDT Office Visit Gynecology/Obstetrics [facility] [address] [place] [address] Arely Canales PA-C [address] [place] [address] [place] [address] 11/19/2023 8:00 AM EDT Office Visit Gynecology/Obstetrics [facility] [address] [place] [address] Rosalie Dykes CRNP [address] [place] [address] 11/19/2023 8:30 AM EDT Office Visit Windshield Technician Obstetrics Maternal Medicine, [place] [address] [place] [address] [facility] [address] [place] [address] 11/19/2023 8:30 AM EDT Imaging Radiology [facility], [place] [address] [place] [address] Health Maintenance Due Date Last Done Comments [...]
[2023-11-20] MEDS: CALCIUM CARBONATE 500 MG CHEWABLE TAB PO PRN (14:50)
[2023-11-20] MEDS: PENICILLIN GK 3 MU in DEXTROSE 5% 100 ML IV PRN (15:05)
[2023-11-20] MEDS: miSOPROStoL 50 MCG TAB PO STA (15:05)
[2023-11-20] MEDS: ONDANSETRON INJ 2 MG/ML 2 ML VIAL IV PRN (16:45)
[2023-11-20] MEDS: FAMOTIDINE 20 MG TAB PO SCH (18:03)
[2023-11-20] MEDS ORDERED: Nursing to Pharmacy Communication SCH (21:00)
[2023-11-20] MEDS: miSOPROStoL 50 MCG TAB PO SCH (21:26)
[2023-11-20 23:59] LABS: Platelet Count 137 K/uL (130-400)
--- NOTE | 2023-11-21 14:52 | Labor Progress Brief Note ---
Date of Service November 21, 2023 Assessment & Plan Admission and Anticipated Discharge Date Admission Date: November 20, 2023 Physical Exam Genitourinary: Manual OB Exam: + cervical dilation fingertip, + cervical effacement 50% and + station high OB Exam Monitor Tracing: + external FHT monitor used, + external uterine monitor used, + category I and + normal FHT variability cervix still posterior/firm Will start Oxytocin Results & Data Vital Signs (Past 12 Hours) Vital Signs Temp Pulse Resp BP 11/21/23 14:14 88 113/73 11/21/23 11:41 36.6 C 84 20 145/85 H 11/21/23 09:46 92 H 20 132/82 11/21/23 07:20 36.7 C 87 20 134/86 11/21/23 04:38 36.5 C 93 H 18 124/76
[2023-11-21] MEDS: OXYTOCIN 30 UNITS/NSS 30 UNITS/500 ML BAG IV PRN (15:04)
[2023-11-21] MEDS ORDERED: miSOPROStoL 50 MCG TAB PO SCH ×2 (20:44)
--- NOTE | 2023-11-22 07:28 | Labor Progress Brief Note ---
Date of Service November 22, 2023 Subjective Day 3 IOL for GHTN with normal BP here in the hospital I gave the patient option to continue induction with Chance bulb and Oxytocin, elective , or to be sent home and start induction later next week. She wants to continue to labor at this point. Assessment & Plan Admission and Anticipated Discharge Date Admission Date: November 20, 2023 Physical Exam Genitourinary: Manual OB Exam: + cervical dilation fingertip and 1 cm, + cervical effacement 50% and + station high OB Exam Monitor Tracing: + external FHT monitor used, + category I and + normal FHT variability Chance placed transcervically with 35 ml. sterile water placed in balloon. Patient tolerated procedure well. Results & Data Vital Signs (Past 12 Hours) Vital Signs Temp Pulse Resp BP 11/22/23 06:37 82 139/81 11/22/23 05:36 78 123/69 11/22/23 02:04 36.7 C 83 18 132/79 11/21/23 23:05 36.6 C 85 18 139/93 11/21/23 22:04 74 124/78 11/21/23 21:04 85 138/86 11/21/23 20:04 83 139/90
[2023-11-22 09:01] LABS: Albumin Globulin Ratio 1.1 (0.9-2); Albumin Level 3.4 gm/dl (3.4-5.0); BUN Creatinine Ratio 9.7 (10-20); Bilirubin Direct 0.1 mg/dl (0-0.2); Bilirubin,Total 0.6 mg/dl (0.2-1.0); Calcium 8.7 mg/dl (8.6-10.3); Est GFR (African American) 137.3 ml/min; Est GFR (Non-African American) 118.5 ml/min; Globulin 3.2 gm/dl (2.5-4.0); Potassium 3.6 mmol/L (3.5-5.1); Total Protein 6.6 gm/dl (6.0-8.3); Uric Acid 4.2 mg/dl (2.6-7.2)
[2023-11-22 09:04] LABS: Anisocytosis Present; Basophils # (auto) 0.04 K/uL (0.00-0.20); Basophils % (auto) 0.3 %; Eosinophils # (auto) 0.07 K/uL (0.00-0.50); Eosinophils % (auto) 0.6 %; Hematocrit (blood only) 39.2 % (37.0-47.0); Hemoglobin 12.6 g/dl (12.0-16.0); Immature Granulocytes # (auto) 0.08 K/uL (0.01-0.20); Immature Granulocytes % (auto) 0.7 %; Lymphocytes # (auto) 1.27 K/uL (1.20-3.40); Mean Corpuscular Hemoglobin 25.6 pg (25.0-34.0); Mean Corpuscular Hgb Conc 32.1 g/dL (32.0-36.0); Mean Corpuscular Volume 79.5 fL (80.0-100.0); Mean Platelet Volume 11.1 fL (9.4-12.4); Monocytes # (auto) 1.09 K/uL (0.11-0.59); Monocytes % (auto) 9.5 %; Neutrophils # (auto) 8.96 K/uL (1.40-6.50); Neutrophils % (auto) 77.9 %; Platelet Count 157 K/uL (130-400); RDW Coefficient of Variation 24.3 % (11.5-14.5); RDW Standard Deviation 66.1 fL (36.4-46.3); Red Blood Count 4.93 M/uL (4.20-5.40); White Blood Count 11.51 K/ul (4.8-10.8)
--- NOTE | 2023-11-22 09:32 | History & Physical Report ---
Date of Service November 22, 2023 Assessment & Plan (1) Gestational [-induced] hypertension without significant prote inuria, complicating childbirth: Plan: 33-year-old G1, P0 at 37 weeks and 2 days of gestation, induction of labor for gestational hypertension since November 19, Vital signs stable afebrile, Labs are normal, GBS positive, Now in early labor, on IV oxytocin, Plan to continue with IV oxytocin per protocol, epidural for pain, start penicillin for GBS, AROM in the afternoon after 2 doses of penicillin, Continue to monitor, All questions were answered. (2) Positive GBS test: (3) Obesity affecting in third trimester, antepartum: Admission and Anticipated Discharge Date Admission Date: November 20, 2023 History of Present Illness Primary Care Provider: Margarita Warren Patient is a 33-year-old G1, P0 at 37 weeks and 2 days of gestation who was admitted on November 19Saturday by Dr. Reyes for IOL for gestational hypertension. She has received 5 doses of p.o. Cytotec on the day of admission and followed by oxytocin yesterday by Dr. Mckinnon, Who placed Chance bulb this morning which came out soon after while patient was vomiting in the bathroom. Patient feels well now contractions are mild, no leaking or bleeding. Patient denies any other medical problems, no history of STDs, Including genital herpes. Her has been complicated by, 1. obesity during , 2. GBS positive, 3. Gestational hypertension Allergies Allergy/AdvReac Type Severity Reaction Status Date / Time No Known Allergies Allergy Verified 02/03/18 09:30 Home Medications Medication Instructions Recorded Confirmed Type famotidine 20 mg tablet (Pepcid) 20 mg PO DAILY 11/05/23 11/20/23 History vits no.124-ferrous fum 1 tab PO DAILY 11/05/23 11/20/23 History 27 mg iron-folic acid 800 mcg tablet ( Vitamin) calcium carbonate 500 mg PO PRN Indigestion 11/20/23 History Patient History Medical History Torn ACL (anterior cruciate ligament) left PCOS (polycystic ovarian syndrome) GERD (gastroesophageal reflux disease) Environmental allergies Surgical History History of open reduction and internal fixation (ORIF) procedure RT TIBIA ([place]) History of tooth extraction History of tonsillectomy History of adenoidectomy History of myringotomy Family History Grandmother Family history of diabetes mellitus Maternal and Paternal Father Hypertension Social History (Updated 11/20/23 @ 08:00 by Kaylin Hurt RN) Smoking Status: Never smoker Second Hand Exposure: No; Do You Dip or Chew Tobacco: No; Hx Alcohol Use: No Hx Substance Use: No Preferred Language: Hungarian Communication Ability: Effective Toll Test Worker Required: No Beliefs That Will Affect Care: None marital status: Current Living Situation: Spouse Current Living Situation Comment: Lives with Ray and a cat current occupational status: employed 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 [employer] Other Information That Helps Us Care for You: No Feels Safe at Home: Yes Safety Concerns: Feels Safe At This Time Diet: regular Dental Care, Regularly: Yes Seatbelt Use: always Gender Identity: Female Assistive Devices: None Review of Systems as per Subjective / HPI Physical Exam Constitutional: WD/WN, vitals as above well developed, well nourished, + obese and comfortable Gastrointestinal (Abdomen): normal bowel sounds, soft, nontender, no hepatosplenomegaly Genitourinary: OB Exam Abdomen: + vertex Manual OB Exam: + cervical dilation 3 cm, + cervical effacement 60% and + station -2 OB Exam Monitor Tracing: + external uterine monitor used and + category I Results & Data Vital Signs (Past 12 Hours) Vital Signs Temp Pulse Resp BP 11/22/23 09:02 81 139/84 11/22/23 09:00 16 11/22/23 09:00 16 11/22/23 07:59 88 127/75 11/22/23 07:05 36.7 C 16 11/22/23 06:37 82 139/81 11/22/23 05:36 78 123/69 11/22/23 02:04 36.7 C 83 18 132/79 11/21/23 23:05 36.6 C 85 18 139/93 11/21/23 22:04 74 124/78 Laboratory Results Lab Results 11/20/23 11/20/23 11/20/23 Range/Units 08:48 08:52 22:53 WBC 9.28 (4.8-10.8) K/ul RBC 4.60 (4.20-5.40) M/uL Hgb 11.6 L (12.0-16.0) g/dl Hct 36.6 L (37.0-47.0) % MCV 79.6 L (80.0-100.0) fL MCH 25.2 (25.0-34.0) pg MCHC 31.7 L (32.0-36.0) g/dL RDW Std Deviation 65.4 H (36.4-46.3) fL RDW Coeff of Juvenal 23.9 H (11.5-14.5) % Plt Count 137 (130-400) K/uL MPV (9.4-12.4) fL Immature Gran % (Auto) % Neut % (Auto) % Lymph % (Auto) % [place] % (Auto) % Eos % (Auto) % Baso % (Auto) % Neut # (Auto) (1.40-6.50) K/uL Lymph # (Auto) (1.20-3.40) K/uL [place] # (Auto) (0.11-0.59) K/uL Eos # (Auto) (0.00-0.50) K/uL Baso # (Auto) (0.00-0.20) K/uL Immature Gran # (Auto) (0.01-0.20) K/uL Anisocytosis Sodium (136-145) mmol/L Potassium (3.5-5.1) mmol/L Chloride (98-107) mmol/L Carbon Dioxide (21-32) mmol/L Anion Gap (3-11) BUN (6-23) mg/dl Creatinine (0.6-1.2) mg/dl Est Cr Clr Drug Dosing ml/min Est GFR ( Amer) ml/min Est GFR (Non-Af Amer) ml/min BUN/Creatinine Ratio (10-20) Glucose (70-99(Fasting)) mg/dl Uric Acid (2.6-7.2) mg/dl Calcium (8.6-10.3) mg/dl Total Bilirubin (0.2-1.0) mg/dl Direct Bilirubin (0-0.2) mg/dl AST (13-39) U/L ALT (7-52) U/L Alkaline Phosphatase (34-104) U/L Lactate Dehydrogenase (86-244) U/L Total Protein (6.0-8.3) gm/dl Albumin (3.4-5.0) gm/dl Globulin (2.5-4.0) gm/dl Albumin/Globulin Ratio (0.9-2) Treponema pallidum Ab Negative (Negative) Blood Type A Positive Antibody Screen NEGATIVE 11/22/23 Range/Units 08:03 WBC 11.51 H (4.8-10.8) K/ul RBC 4.93 (4.20-5.40) M/uL Hgb 12.6 (12.0-16.0) g/dl Hct 39.2 (37.0-47.0) % MCV 79.5 L (80.0-100.0) fL MCH 25.6 (25.0-34.0) pg MCHC 32.1 (32.0-36.0) g/dL RDW Std Deviation 66.1 H (36.4-46.3) fL RDW Coeff of Juvenal 24.3 H (11.5-14.5) % Plt Count 157 (130-400) K/uL MPV 11.1 (9.4-12.4) fL Immature Gran % (Auto) 0.7 % Neut % (Auto) 77.9 % Lymph % (Auto) 11.0 % [place] % (Auto) 9.5 % Eos % (Auto) 0.6 % Baso % (Auto) 0.3 % Neut # (Auto) 8.96 H (1.40-6.50) K/uL Lymph # (Auto) 1.27 (1.20-3.40) K/uL [place] # (Auto) 1.09 H (0.11-0.59) K/uL Eos # (Auto) 0.07 (0.00-0.50) K/uL Baso # (Auto) 0.04 (0.00-0.20) K/uL Immature Gran # (Auto) 0.08 (0.01-0.20) K/uL Anisocytosis Present Sodium 133 L (136-145) mmol/L Potassium 3.6 (3.5-5.1) mmol/L Chloride 104 (98-107) mmol/L Carbon Dioxide 22 (21-32) mmol/L Anion Gap 7 (3-11) BUN 6 (6-23) mg/dl Creatinine 0.62 (0.6-1.2) mg/dl Est Cr Clr Drug Dosing 148.0 ml/min Est GFR ( Amer) 137.3 ml/min Est GFR (Non-Af Amer) 118.5 ml/min BUN/Creatinine Ratio 9.7 L (10-20) Glucose 97 (70-99(Fasting)) mg/dl Uric Acid 4.2 (2.6-7.2) mg/dl Calcium 8.7 (8.6-10.3) mg/dl Total Bilirubin 0.6 (0.2-1.0) mg/dl Direct Bilirubin 0.1 (0-0.2) mg/dl AST 16 (13-39) U/L ALT 22 (7-52) U/L Alkaline Phosphatase 116 H (34-104) U/L Lactate Dehydrogenase 150 (86-244) U/L Total Protein 6.6 (6.0-8.3) gm/dl Albumin 3.4 (3.4-5.0) gm/dl Globulin 3.2 (2.5-4.0) gm/dl Albumin/Globulin Ratio 1.1 (0.9-2) Treponema pallidum Ab (Negative) Blood Type Antibody Screen
[2023-11-22 10:31] LABS: Creatinine Urine Random 148.6 mg/dl; Protein Creatinine Ratio Urine 0.1 (0-0.2); Total Protein Urine Random 20.5 mg/dl (0-11.9)
--- NOTE | 2023-11-22 13:38 | Obstetrical Progress Note ---
Date of Service November 22, 2023 Assessment & Plan Admission and Anticipated Discharge Date Admission Date: November 20, 2023 Subjective Patient is reevaluated She feels well, no complaints Oxytocin is at 20 miu/min, does not feel contractions, only mild cramps VE: 3-4 cm/ 50%/-2, AROM'ed clear fluid FJHR categ I Continue to monitor closely 11/22/23 11/22/23 Range/Units 09:35 08:03 WBC 11.51 H (4.8-10.8) K/ul RBC 4.93 (4.20-5.40) M/uL Hgb 12.6 (12.0-16.0) g/dl Hct 39.2 (37.0-47.0) % MCV 79.5 L (80.0-100.0) fL MCH 25.6 (25.0-34.0) pg MCHC 32.1 (32.0-36.0) g/dL RDW Std Deviation 66.1 H (36.4-46.3) fL RDW Coeff of Juvenal 24.3 H (11.5-14.5) % Plt Count 157 (130-400) K/uL MPV 11.1 (9.4-12.4) fL Immature Gran % (Auto) 0.7 % Neut % (Auto) 77.9 % Lymph % (Auto) 11.0 % [place] % (Auto) 9.5 % Eos % (Auto) 0.6 % Baso % (Auto) 0.3 % Neut # (Auto) 8.96 H (1.40-6.50) K/uL Lymph # (Auto) 1.27 (1.20-3.40) K/uL [place] # (Auto) 1.09 H (0.11-0.59) K/uL Eos # (Auto) 0.07 (0.00-0.50) K/uL Baso # (Auto) 0.04 (0.00-0.20) K/uL Immature Gran # (Auto) 0.08 (0.01-0.20) K/uL Anisocytosis Present Sodium 133 L (136-145) mmol/L Potassium 3.6 (3.5-5.1) mmol/L Chloride 104 (98-107) mmol/L Carbon Dioxide 22 (21-32) mmol/L Anion Gap 7 (3-11) BUN 6 (6-23) mg/dl Creatinine 0.62 (0.6-1.2) mg/dl Est Cr Clr Drug Dosing 148.0 ml/min Est GFR ( Amer) 137.3 ml/min Est GFR (Non-Af Amer) 118.5 ml/min BUN/Creatinine Ratio 9.7 L (10-20) Glucose 97 (70-99(Fasting)) mg/dl Uric Acid 4.2 (2.6-7.2) mg/dl Calcium 8.7 (8.6-10.3) mg/dl Total Bilirubin 0.6 (0.2-1.0) mg/dl Direct Bilirubin 0.1 (0-0.2) mg/dl AST 16 (13-39) U/L ALT 22 (7-52) U/L Alkaline Phosphatase 116 H (34-104) U/L Lactate Dehydrogenase 150 (86-244) U/L Total Protein 6.6 (6.0-8.3) gm/dl Albumin 3.4 (3.4-5.0) gm/dl Globulin 3.2 (2.5-4.0) gm/dl Albumin/Globulin Ratio 1.1 (0.9-2) Ur Random Creatinine 148.6 mg/dl U Random Total Protein 20.5 H (0-11.9) mg/dl Protein/Creatinin Ratio 0.1 (0-0.2) Results & Data Vital Signs (Past 12 Hours) Vital Signs Temp Pulse Resp BP 11/22/23 12:04 83 138/87 11/22/23 10:31 84 140/86 11/22/23 09:02 81 139/84 11/22/23 09:00 16 11/22/23 09:00 16 11/22/23 07:59 88 127/75 11/22/23 07:05 36.7 C 16 11/22/23 06:37 82 139/81 11/22/23 05:36 78 123/69 11/22/23 02:04 36.7 C 83 18 132/79
--- NOTE | 2023-11-22 14:35 | Anesthesiology Consultation ---
Date of Service November 22, 2023 Assessment & Plan (1) Encounter for pre-operative examination: Chart Review Chart Review: Acceptable Risk for Labor Epidural History Height/Weight Height: 5 ft 3 in Weight: 102.965 kg Allergies Allergy/AdvReac Type Severity Reaction Status Date / Time No Known Allergies Allergy Verified 02/03/18 09:30 Medications Home Medications Medication Instructions Recorded Confirmed Last Taken famotidine 20 mg tablet (Pepcid) 20 mg PO DAILY 11/05/23 11/20/23 11/19/23 20:30 vits no.124-ferrous fum 1 tab PO DAILY 11/05/23 11/20/23 11/19/23 12:00 27 mg iron-folic acid 800 mcg tablet ( Vitamin) calcium carbonate 500 mg PO PRN Indigestion 11/20/23 11/19/23 20:30 Active Medications Generic Name Dose Route Start Last Admin Trade Name Freq PRN Reason Stop Dose Admin Calcium Carbonate 500 mg 11/20/23 10:38 11/21/23 20:58 Calcium Carbonate 500 Mg Chewable Tab PO 12/20/23 10:37 500 mg Q6H PRN Administration Indigestion Famotidine 20 mg 11/20/23 21:00 11/22/23 11:20 Famotidine 20 Mg Tab PO 12/20/23 20:59 20 mg BID TYRELL Administration Penicillin G Potassium 3 mu/ 106 mls @ 100 mls/hr 11/20/23 13:38 11/22/23 13:31 Dextrose IV 11/30/23 13:37 100 mls/hr Q4H PRN Administration GBS(+) Until Delivery Oxytocin 30 units in 500 mls @ 22 mls/hr 11/21/23 14:51 11/22/23 13:30 Pitocin 30 Units/Nss IV 11/23/23 14:50 1.32 units/hr .[id number] PRN 22 mls/hr Labor Induction/Augmentation Titration Protocol 1.32 UNITS/HR Ondansetron HCl 4 mg 11/20/23 16:39 11/20/23 16:45 Ondansetron Inj 2 Mg/Ml 2 Ml Vial IV 12/20/23 16:38 4 mg Q4H PRN Administration Nausea Past Medical History Medical History Torn ACL (anterior cruciate ligament) left PCOS (polycystic ovarian syndrome) GERD (gastroesophageal reflux disease) Environmental allergies Past Family History Family History Grandmother Family history of diabetes mellitus Maternal and Paternal Father Hypertension Past Surgical History Surgical History History of open reduction and internal fixation (ORIF) procedure RT TIBIA ([place]) History of tooth extraction History of tonsillectomy History of adenoidectomy History of myringotomy Social History Smoking Status: Never smoker Do You Dip or Chew Tobacco: No Hx Alcohol Use: No Alcohol type: beer, wine and hard liquor alcohol intake frequency: a few times a month Hx Substance Use: No substance use type: does not use Physical Exam Vital Signs Last Vital Signs Temp 36.7 C 11/22/23 13:29 Pulse 83 11/22/23 12:04 Resp 16 11/22/23 13:47 BP 138/87 11/22/23 12:04 Testing Laboratory Results 11/22/23 08:03 11/22/23 08:03 Blood Type A Positive 11/20/23 08:48 Antibody Screen NEGATIVE 11/20/23 08:48
[2023-11-22] MEDS: ePHEDrine sulfate 50 MG/ML AMP ONE (14:47)
[2023-11-22] MEDS: LIDOCAINE 2%/EPINEPHRINE 1:200,000 20 ML PF ONE (15:02)
[2023-11-22] MEDS: BUPIVACAINE 0.25% PF 30 ML VIAL ONE (15:02)
[2023-11-22] MEDS: fentANYL 2 MCG/ML BUPIVacaine 0.125%-NSS 100ML BAG ONE (15:02)
[2023-11-22] MEDS ORDERED: NALOXONE HCL 0.4 MG/1 ML VIAL/CARP IV PRN ×2 (15:04→23:29)
[2023-11-22] MEDS ORDERED: ROPIVACAINE 0.5% PF 5 MG/ML 20 ML VIAL EPI PRN (15:04)
[2023-11-22] MEDS ORDERED: NALOXONE HCL 1 MG in SODIUM CHLORIDE 0.9% 1,000 ML IV PRN ×2 (15:04→23:29)
[2023-11-22] MEDS ORDERED: LIDOCAINE 2% MPF LOCAL 5 ML VIAL EPI PRN (15:04)
[2023-11-22] MEDS ORDERED: fentANYL 2 MCG/ML BUPIVacaine 0.125%-NSS 100ML BAG EPI PRN (15:04)
[2023-11-22] MEDS ORDERED: ONDANSETRON INJ 2 MG/ML 2 ML VIAL IV PRN ×2 (15:04→23:29)
[2023-11-22] MEDS ORDERED: BUPIVACAINE 0.25% PF 30 ML VIAL EPI PRN (15:04)
[2023-11-22] MEDS ORDERED: fentaNYL citrate PF 100 MCG/2 ML VIAL EPI PRN (15:04)
[2023-11-22] MEDS ORDERED: SODIUM CHLORIDE 0.9% PF INJ 10 ML VIAL EPI PRN (15:04)
[2023-11-22] MEDS ORDERED: ePHEDrine sulfate 50 MG/ML AMP IV PRN ×2 (15:04→23:29)
[2023-11-22] MEDS: fentaNYL citrate PF 100 MCG/2 ML VIAL ONE (15:07)
--- NOTE | 2023-11-22 16:01 | Obstetrical Progress Note ---
Date of Service November 22, 2023 Assessment & Plan Admission and Anticipated Discharge Date Admission Date: November 20, 2023 Subjective Patient received epidural for pain Comfortable Oxytocin is at 22 miu/min FHR categ I VE; unchanged from last exam, head coned, IUPC was placed Continue to monitor closely Results & Data Vital Signs (Past 12 Hours) Vital Signs Temp Pulse Resp BP Pulse Ox 11/22/23 15:56 83 98 11/22/23 15:51 113 H 100 11/22/23 15:46 93 H 99 11/22/23 15:43 75 123/75 11/22/23 15:41 83 99 11/22/23 15:38 78 123/68 11/22/23 15:36 81 100 11/22/23 15:33 74 118/71 11/22/23 15:31 80 99 11/22/23 15:30 16 11/22/23 15:30 36.7 C 16 11/22/23 15:28 75 119/77 11/22/23 15:26 79 99 11/22/23 15:24 75 120/72 11/22/23 15:21 76 99 11/22/23 15:18 80 123/63 11/22/23 15:16 93 H 99 11/22/23 15:11 83 119/72 100 11/22/23 15:09 83 115/71 11/22/23 15:07 98 H 118/69 11/22/23 15:06 94 H 98 11/22/23 15:05 102 H 117/70 11/22/23 15:03 102 H 121/67 11/22/23 15:01 109 H 119/67 98 11/22/23 15:00 129 H 16 116/63 11/22/23 14:58 61 89/54 L 11/22/23 14:56 64 16 99 11/22/23 14:55 78 94/49 L 11/22/23 14:54 109 H 118/56 L 11/22/23 14:53 16 11/22/23 14:53 16 11/22/23 14:51 99 11/22/23 14:51 116 H 11/22/23 14:51 111 H 111/60 11/22/23 14:46 93 H 99 11/22/23 14:41 94 H 99 11/22/23 14:36 100 H 99 11/22/23 13:47 16 11/22/23 13:47 16 11/22/23 13:29 36.7 C 11/22/23 12:04 83 138/87 11/22/23 10:31 84 140/86 11/22/23 09:02 81 139/84 11/22/23 09:00 16 11/22/23 09:00 16 11/22/23 07:59 88 127/75 11/22/23 07:05 36.7 C 16 11/22/23 06:37 82 139/81 11/22/23 05:36 78 123/69
[2023-11-22] MEDS: SODIUM CHLORIDE 0.9% PF INJ 10 ML VIAL ONE (16:10)
[2023-11-22] MEDS: LACTATED RINGER'S 1,000 ML IV SCH ×2 (16:32→22:22)
--- NOTE | 2023-11-22 18:36 | Obstetrical Progress Note ---
Date of Service November 22, 2023 Assessment & Plan Admission and Anticipated Discharge Date Admission Date: November 20, 2023 Subjective Patient is reevaluated She feelswell, no complaints, very pleasant No pain nor discomfort VSS Afebrile FHR categ I IUPC has not been monitoring contractions VE; 4/ 70%/ -2, IUPC is removed and new one placed, amniotic fluid blood tinged Continue to monitor closely Results & Data Vital Signs (Past 12 Hours) Vital Signs Temp Pulse Resp BP Pulse Ox 11/22/23 18:31 110 H 100 11/22/23 18:26 94 H 100 11/22/23 18:21 91 H 97 11/22/23 18:17 82 128/84 11/22/23 18:16 76 99 11/22/23 18:11 87 99 11/22/23 18:06 96 H 100 11/22/23 18:01 99 11/22/23 18:01 95 H 11/22/23 18:01 87 127/90 11/22/23 18:00 16 11/22/23 18:00 36.8 C 16 11/22/23 17:56 88 100 11/22/23 17:51 99 H 100 11/22/23 17:47 96 H 136/104 H 11/22/23 17:46 90 100 11/22/23 17:41 86 100 11/22/23 17:36 85 100 11/22/23 17:32 85 129/87 11/22/23 17:31 86 100 11/22/23 17:30 86 18 91 11/22/23 17:26 84 98 11/22/23 17:25 36.7 C 11/22/23 17:23 74 93 11/22/23 17:21 70 99 11/22/23 17:16 88 122/73 99 11/22/23 17:11 68 100 11/22/23 17:06 81 100 11/22/23 17:02 88 90 11/22/23 17:01 79 136/83 100 11/22/23 17:00 16 11/22/23 17:00 16 11/22/23 16:56 83 99 11/22/23 16:51 78 100 11/22/23 16:47 79 136/86 11/22/23 16:46 79 100 11/22/23 16:41 84 100 11/22/23 16:36 80 100 11/22/23 16:31 78 129/86 100 11/22/23 16:30 16 11/22/23 16:30 16 11/22/23 16:26 83 100 11/22/23 16:21 83 100 11/22/23 16:17 75 131/86 11/22/23 16:16 84 100 11/22/23 16:11 83 99 11/22/23 16:06 85 99 11/22/23 16:02 89 127/79 11/22/23 16:01 88 100 11/22/23 16:00 16 11/22/23 16:00 16 11/22/23 15:56 83 98 11/22/23 15:51 113 H 100 11/22/23 15:46 93 H 99 11/22/23 15:43 75 123/75 11/22/23 15:41 83 99 11/22/23 15:38 78 123/68 11/22/23 15:36 81 100 11/22/23 15:33 74 118/71 11/22/23 15:31 80 99 11/22/23 15:30 16 11/22/23 15:30 36.7 C 16 11/22/23 15:28 75 119/77 11/22/23 15:26 79 99 11/22/23 15:24 75 120/72 11/22/23 15:21 76 99 11/22/23 15:18 80 123/63 11/22/23 15:16 93 H 99 11/22/23 15:11 83 119/72 100 11/22/23 15:09 83 115/71 11/22/23 15:07 98 H 118/69 11/22/23 15:06 94 H 98 11/22/23 15:05 102 H 117/70 11/22/23 15:03 102 H 121/67 11/22/23 15:01 109 H 119/67 98 11/22/23 15:00 129 H 16 116/63 11/22/23 14:58 61 89/54 L 11/22/23 14:56 64 16 99 11/22/23 14:55 78 94/49 L 11/22/23 14:54 109 H 118/56 L 11/22/23 14:53 16 11/22/23 14:53 16 11/22/23 14:51 99 11/22/23 14:51 116 H 11/22/23 14:51 111 H 111/60 11/22/23 14:46 93 H 99 11/22/23 14:41 94 H 99 11/22/23 14:36 100 H 99 11/22/23 13:47 16 11/22/23 13:47 16 11/22/23 13:29 36.7 C 11/22/23 12:04 83 138/87 11/22/23 10:31 84 140/86 11/22/23 09:02 81 139/84 11/22/23 09:00 16 11/22/23 09:00 16 11/22/23 07:59 88 127/75 11/22/23 07:05 36.7 C 16 11/22/23 06:37 82 139/81
--- NOTE | 2023-11-22 22:23 | Obstetrical Progress Note ---
Date of Service November 22, 2023 Assessment & Plan Admission and Anticipated Discharge Date Admission Date: November 20, 2023 Subjective patient is reevaluated. She states she is "done with induction of labor" vital signs stable afebrile, heart rate category 1, Oxytocin has been at 30-minute internation per minute vaginal exam repeated myself, unchanged, cervix is 4 cm dilated, 75% effaced, head is -2, cone-shaped, IUPC was removed and oxytocin was stopped. Patient understands C section is a major surgery, with risks including but not limited to bleeding , infection, injury to surrounding organs like bowels, bladder, ureters, adhesions, scarring, wound infection, blood cloths in legs/ lungs, longer recovery. All questions were answered. She signed an informed consent. Results & Data Vital Signs (Past 12 Hours) Vital Signs Temp Pulse Resp BP Pulse Ox 11/22/23 22:16 97 11/22/23 22:16 96 H 11/22/23 22:16 101 H 143/87 H 11/22/23 22:11 118 H 97 11/22/23 22:06 96 H 98 11/22/23 22:01 113 H 149/83 H 98 11/22/23 21:56 140 H 97 11/22/23 21:51 130 H 99 11/22/23 21:46 141 H 100 11/22/23 21:41 100 H 97 11/22/23 21:36 107 H 99 11/22/23 21:32 96 H 135/80 11/22/23 21:31 93 H 98 11/22/23 21:30 16 11/22/23 21:30 16 11/22/23 21:26 104 H 99 11/22/23 21:21 119 H 99 11/22/23 21:18 96 H 143/93 H 11/22/23 21:16 99 H 99 11/22/23 21:11 105 H 98 11/22/23 21:06 93 H 99 11/22/23 21:01 87 134/96 99 11/22/23 21:00 18 11/22/23 21:00 36.6 C 18 11/22/23 20:56 83 99 11/22/23 20:51 85 99 11/22/23 20:47 83 131/92 11/22/23 20:46 93 H 99 11/22/23 20:41 88 99 11/22/23 20:36 91 H 99 11/22/23 20:31 100 11/22/23 20:31 84 11/22/23 20:31 88 123/74 11/22/23 20:30 18 11/22/23 20:30 18 11/22/23 20:26 80 100 11/22/23 20:21 77 100 11/22/23 20:17 71 119/68 11/22/23 20:16 72 100 11/22/23 20:11 76 99 11/22/23 20:06 102 H 99 11/22/23 20:01 98 11/22/23 20:01 88 11/22/23 20:01 81 143/96 H 11/22/23 20:00 18 11/22/23 20:00 18 11/22/23 19:56 92 H 99 11/22/23 19:51 88 99 11/22/23 19:47 90 139/92 11/22/23 19:46 85 99 11/22/23 19:41 86 99 11/22/23 19:36 86 98 11/22/23 19:31 99 11/22/23 19:31 88 11/22/23 19:31 83 140/78 11/22/23 19:30 18 11/22/23 19:30 18 11/22/23 19:26 83 99 11/22/23 19:21 91 H 98 11/22/23 19:17 91 H 135/77 11/22/23 19:16 86 99 11/22/23 19:11 89 98 11/22/23 19:06 82 100 11/22/23 19:01 99 11/22/23 19:01 102 H 11/22/23 19:01 106 H 116/84 11/22/23 19:00 16 11/22/23 19:00 36.7 C 16 11/22/23 18:56 102 H 99 11/22/23 18:51 103 H 99 11/22/23 18:46 112 H 123/93 99 11/22/23 18:41 130 H 99 11/22/23 18:36 101 H 100 11/22/23 18:31 110 H 100 11/22/23 18:30 16 11/22/23 18:30 16 11/22/23 18:26 94 H 100 11/22/23 18:21 91 H 97 11/22/23 18:17 82 128/84 11/22/23 18:16 76 99 11/22/23 18:11 87 99 11/22/23 18:06 96 H 100 11/22/23 18:01 99 11/22/23 18:01 95 H 11/22/23 18:01 87 127/90 11/22/23 18:00 16 11/22/23 18:00 36.8 C 16 11/22/23 17:56 88 100 11/22/23 17:51 99 H 100 11/22/23 17:47 96 H 136/104 H 11/22/23 17:46 90 100 11/22/23 17:41 86 100 11/22/23 17:36 85 100 11/22/23 17:32 85 129/87 11/22/23 17:31 86 100 11/22/23 17:30 86 18 91 11/22/23 17:26 84 98 11/22/23 17:25 36.7 C 11/22/23 17:23 74 93 11/22/23 17:21 70 99 11/22/23 17:16 88 122/73 99 11/22/23 17:11 68 100 11/22/23 17:06 81 100 11/22/23 17:02 88 90 11/22/23 17:01 79 136/83 100 11/22/23 17:00 16 11/22/23 17:00 16 11/22/23 16:56 83 99 11/22/23 16:51 78 100 11/22/23 16:47 79 136/86 11/22/23 16:46 79 100 11/22/23 16:41 84 100 11/22/23 16:36 80 100 11/22/23 16:31 78 129/86 100 11/22/23 16:30 16 11/22/23 16:30 16 11/22/23 16:26 83 100 11/22/23 16:21 83 100 11/22/23 16:17 75 131/86 11/22/23 16:16 84 100 11/22/23 16:11 83 99 11/22/23 16:06 85 99 11/22/23 16:02 89 127/79 11/22/23 16:01 88 100 11/22/23 16:00 16 11/22/23 16:00 16 11/22/23 15:56 83 98 11/22/23 15:51 113 H 100 11/22/23 15:46 93 H 99 11/22/23 15:43 75 123/75 11/22/23 15:41 83 99 11/22/23 15:38 78 123/68 11/22/23 15:36 81 100 11/22/23 15:33 74 118/71 11/22/23 15:31 80 99 11/22/23 15:30 16 11/22/23 15:30 36.7 C 16 11/22/23 15:28 75 119/77 11/22/23 15:26 79 99 11/22/23 15:24 75 120/72 11/22/23 15:21 76 99 11/22/23 15:18 80 123/63 11/22/23 15:16 93 H 99 11/22/23 15:11 83 119/72 100 11/22/23 15:09 83 115/71 11/22/23 15:07 98 H 118/69 11/22/23 15:06 94 H 98 11/22/23 15:05 102 H 117/70 11/22/23 15:03 102 H 121/67 11/22/23 15:01 109 H 119/67 98 11/22/23 15:00 129 H 16 116/63 11/22/23 14:58 61 89/54 L 11/22/23 14:56 64 16 99 11/22/23 14:55 78 94/49 L 11/22/23 14:54 109 H 118/56 L 11/22/23 14:53 16 11/22/23 14:53 16 11/22/23 14:51 99 11/22/23 14:51 116 H 11/22/23 14:51 111 H 111/60 11/22/23 14:46 93 H 99 11/22/23 14:41 94 H 99 11/22/23 14:36 100 H 99 11/22/23 13:47 16 11/22/23 13:47 16 11/22/23 13:29 36.7 C 11/22/23 12:04 83 138/87 11/22/23 10:31 84 140/86
[2023-11-22] MEDS ORDERED: ONDANSETRON INJ 2 MG/ML 2 ML VIAL ONE (22:27)
[2023-11-22] MEDS ORDERED: OXYTOCIN 10 UNITS/ML VIAL ONE (22:27)
[2023-11-22] MEDS ORDERED: LIDOCAINE 2%/EPINEPHRINE 1:200,000 20 ML PF ONE (22:27)
[2023-11-22] MEDS ORDERED: KETOROLAC 30 MG/ML VIAL ONE (22:27)
[2023-11-22] MEDS: ACETAMINOPHEN 500 MG TAB PO ONE (22:28)
[2023-11-22] MEDS: AZITHROMYCIN 500 MG in DEXTROSE 5% 250 ML IV ONE (22:29)
[2023-11-22] MEDS ORDERED: PHENYLEPHRINE HCL 25 MG/250 ML NSS IV ONE (22:31)
[2023-11-22] MEDS ORDERED: MoRPHine SULFATE PF 1 MG/ML 10 ML AMP/VIAL ONE (22:31)
[2023-11-22 22:59] LABS: Hematocrit (blood only) 38.3 % (37.0-47.0); Hemoglobin 11.9 g/dl (12.0-16.0); Mean Corpuscular Hemoglobin 25.4 pg (25.0-34.0); Mean Corpuscular Hgb Conc 31.1 g/dL (32.0-36.0); Mean Corpuscular Volume 81.7 fL (80.0-100.0); Mean Platelet Volume 11.6 fL (9.4-12.4); Platelet Count 150 K/uL (130-400); RDW Coefficient of Variation 24.6 % (11.5-14.5); RDW Standard Deviation 68.6 fL (36.4-46.3); Red Blood Count 4.69 M/uL (4.20-5.40); White Blood Count 13.96 K/ul (4.8-10.8)
[2023-11-22] MEDS ORDERED: LACTATED RINGER'S 1,000 ML IV SCH (23:00)
[2023-11-22] MEDS: ceFAZolin 2000MG 2,000 MG/15 ML SYR IV ONE (23:01)
[2023-11-22] MEDS ORDERED: PROMETHAZINE HCL INJ 25 MG/ML 1 ML VIAL ONE (23:21)
[2023-11-22] MEDS ORDERED: NALBUPHINE HCL INJ 10 MG/ML AMP IV PRN (23:29)
[2023-11-22] MEDS ORDERED: HYDROmorphone INJ 0.5 MG/0.5 ML SYR IV PRN (23:29)
[2023-11-22] MEDS ORDERED: NALOXONE HCL 0.08 MG in SYRINGE 1.8 ML IV PRN (23:29)
[2023-11-22] MEDS ORDERED: diphenhydrAMINE 50 MG/ML VIAL IV PRN (23:29)
[2023-11-22] MEDS ORDERED: ACETAMINOPHEN 1,000 MG/100 ML VIAL IV PRN (23:29)
[2023-11-22] MEDS ORDERED: LACTATED RINGER'S 500 ML IV PRN (23:29)
[2023-11-22] MEDS ORDERED: PROMETHAZINE 6.25 MG/50.25 ML BAG IV PRN (23:29)
[2023-11-22] MEDS ORDERED: KETOROLAC 30 MG/ML VIAL IV PRN (23:29)
[2023-11-22] MEDS ORDERED: DC INTRASPINAL MORPHINE SCH (23:30)
[2023-11-22] MEDS ORDERED: NO NARCOTICS OR SEDATIVES SCH (23:30)
[2023-11-22] MEDS ORDERED: METHYLERGONOVINE MALEATE 0.2 MG/ML AMP ONE (23:37)
[2023-11-22] MEDS: CITRIC ACID/SODIUM CITRATE 15 ML UDC PO ONE (23:54)
[2023-11-23] MEDS ORDERED: HYDROCORTISONE ACETATE 25 MG SUPP PR PRN (00:10)
[2023-11-23] MEDS ORDERED: SENNA 8.6 MG TAB PO PRN (00:10)
[2023-11-23] MEDS ORDERED: BENZOCAINE 20% SPRY 85 APPLN/85 GM CAN EXT PRN (00:10)
[2023-11-23] MEDS: OXYTOCIN 20 UNITS/LR 1,002 ML IV SCH (00:25)
--- NOTE | 2023-11-23 00:28 | Operative Report ---
Post Operative Report Pre & Post Diagnosis Operation Date: 11/22/23 22:20 Pre-Op Diagnosis: 1. Failure to progress 2. Arrest of dilitation Post-Op Diagnosis: Same as preop I identified the patient and participated in the time-out.: Yes Procedure Operation Date: 11/22/23 22:20 Actual Procedures p Section in LD - Chelsea Qureshi MD Surgeon Chelsea Qureshi MD Computer Systems Technology Instructor Dr Mckinnon Quantitative Blood Loss (QBL) 320 ml Findings Consistent with Post-Op Diagnosis baby was a viable female delivered in cephalic presentation at 23:32 PM on November 22, 2023, Apgars 8/9, weight is 3100 g. with urine findings, normal uterus, fallopian tubes and ovaries Specimens placenta and cord Drains Chance catheter drained 100 mL of urine Anesthesia Type Labor Epidural Complications none Indications patient is a 33-year-old G1, P0 at 37 weeks and 2 days of gestation who was admitted on November 20, 2019 for for induction of labor for gestational hypertension. after cervical ripening with p.o. Cytotec and Chance bulb patient was started on IV oxytocin per protocol. Despite AROM with maximum dose of oxytocin for many hours there was no change cervix. patient requested primary delivery after counseling. she understood the risks and benefits and she signed an informed consent. Description of Procedure Patient was taken to operating room where a spinal anesthesia was given without difficulty. She was placed in dorsal supine position with a leftward tilt. She was prepared and draped in usual sterile fashion. A financial skin incision was made and carried through to the underlying layer of fascia with the Bovie. Fascia was incised in the midline and incision was extended laterally with the help of Shi scissors. Then the upper aspect of the fascial incision was grasped with 2 Bhargav clamps elevated the underlying rectus muscles were dissected off sharply with Shi scissors. Same thing was done on the lower i ncision. Then the muscles were in the midline, peritoneum was identified grasped with 2 pickups and entered sharply with Metzenbaum scissors. Peritoneal incision was extended superior and inferiorly with good visualization of the bladder. The bladder blade was inserted. Vesicouterine peritoneum was identified, grasped with pickups and entered sharply with Metzenbaum scissors, bladder flap was created digitally and bladder blade was reinserted. Uterus was incised in transverse fashion, incision was extended laterally, membranes were ruptured and clear fluid was obtained. Baby's head was delivered without difficulty, followed by shoulders and body with minimal traction without faculty. Mouth and nose were suctioned there was dried on the field he was vigorously crying and moving. The cord was clamped times and cut at 1 minute delay and then the was handed off to the pediatric team. Then the placenta was delivered manually as intact and complete. Uterus was externalized and cleared of all clots and debris's. Uterine incision was repaired with 0 Vicryl in a running locked fashion, second umbricating layer was placed with the same suture in running locked fashion. Excellent hemostasis achieved. Cul-de-sac and the pelvis was irrigated with warm normal saline and suctioned. Incision was checked to be Hemostatic again. Uterus was returned to the abdomen, parietal peritoneum was reapproximated with 3-0 Vicryl in a running fashion and the muscles were reapproximated in the same suture in a running fashion. All of the fascia and rectus muscles were hemostatic. Rectus fascia was reapproximated with 0 Vicryl. Subcuticular fat tissue was brought together with 2-0 Vicryl in a running fashion, skin was closed with 4-0 Monocryl in a subcuticular cuticular fashion. The mom and baby tolerated procedure well. Sponge needle instrument count was correct x3. she was given 2 g of cefazolin before surgery and 500 mg of azithromycin during surgery. No complications happened, I was present during whole procedure. My assistant store manager was needed for retraction, hemostasis and aid during delivery of infant I attest to the content of the Intraoperative Record and any orders documented therein. Any exceptions are noted below.
--- NOTE | 2023-11-23 01:27 | Anesthesiology Progress Note ---
Date of Service November 23, 2023 Anesthesia Post Procedure Vital Signs Vital Signs: Temp Pulse Resp BP Pulse Ox 11/23/23 01:24 78 97 11/23/23 01:23 76 126/81 11/23/23 01:19 80 97 11/23/23 01:15 16 11/23/23 01:14 77 98 11/23/23 01:13 79 121/79 11/23/23 01:09 78 99 11/23/23 01:05 18 11/23/23 01:04 85 98 11/23/23 01:03 78 119/59 L 11/23/23 00:59 88 100 11/23/23 00:55 18 11/23/23 00:54 99 11/23/23 00:54 93 H 11/23/23 00:54 87 128/73 11/23/23 00:49 80 100 11/23/23 00:46 18 11/23/23 00:44 78 100 11/23/23 00:43 79 119/68 11/23/23 00:39 88 100 11/23/23 00:34 101 H 102/63 100 11/23/23 00:29 97 H 100 11/23/23 00:25 97.7 F 18 11/23/23 00:24 103 H 100 11/23/23 00:23 108 H 92 11/23/23 00:20 104 H 138/64 11/23/23 00:19 106 H 100 11/22/23 23:06 98 H 96 11/22/23 23:02 86 132/80 11/22/23 23:01 90 96 11/22/23 23:00 18 11/22/23 23:00 98.2 F 18 11/22/23 22:56 96 H 95 11/22/23 22:51 94 H 97 11/22/23 22:46 97 11/22/23 22:46 99 H 11/22/23 22:46 96 H 126/89 11/22/23 22:41 91 H 96 11/22/23 22:36 94 H 96 11/22/23 22:31 95 H 137/84 98 11/22/23 22:26 101 H 96 11/22/23 22:21 96 H 97 11/22/23 22:16 97 11/22/23 22:16 96 H 11/22/23 22:16 101 H 143/87 H 11/22/23 22:11 118 H 97 11/22/23 22:06 96 H 98 11/22/23 22:01 113 H 149/83 H 98 11/22/23 21:56 140 H 97 11/22/23 21:51 130 H 99 11/22/23 21:46 141 H 100 11/22/23 21:41 100 H 97 11/22/23 21:36 107 H 99 11/22/23 21:32 96 H 135/80 11/22/23 21:31 93 H 98 11/22/23 21:30 16 11/22/23 21:30 16 11/22/23 21:26 104 H 99 11/22/23 21:21 119 H 99 11/22/23 21:18 96 H 143/93 H 11/22/23 21:16 99 H 99 11/22/23 21:11 105 H 98 11/22/23 21:06 93 H 99 11/22/23 21:01 87 134/96 99 11/22/23 21:00 18 11/22/23 21:00 97.9 F 18 11/22/23 20:56 83 99 11/22/23 20:51 85 99 11/22/23 20:47 83 131/92 11/22/23 20:46 93 H 99 11/22/23 20:41 88 99 11/22/23 20:36 91 H 99 11/22/23 20:31 100 11/22/23 20:31 84 11/22/23 20:31 88 123/74 11/22/23 20:30 18 11/22/23 20:30 18 11/22/23 20:26 80 100 11/22/23 20:21 77 100 11/22/23 20:17 71 119/68 11/22/23 20:16 72 100 11/22/23 20:11 76 99 11/22/23 20:06 102 H 99 11/22/23 20:01 98 11/22/23 20:01 88 11/22/23 20:01 81 143/96 H 11/22/23 20:00 18 11/22/23 20:00 18 11/22/23 19:56 92 H 99 11/22/23 19:51 88 99 08/30/24 19:47 90 139/92 08/30/24 19:46 85 99 11/22/23 19:41 86 99 11/22/23 19:36 86 98 11/22/23 19:31 99 11/22/23 19:31 88 11/22/23 19:31 83 140/78 11/22/23 19:30 18 11/22/23 19:30 18 11/22/23 19:26 83 99 11/22/23 19:21 91 H 98 11/22/23 19:17 91 H 135/77 11/22/23 19:16 86 99 11/22/23 19:11 89 98 11/22/23 19:06 82 100 11/22/23 19:01 99 11/22/23 19:01 102 H 11/22/23 19:01 106 H 116/84 11/22/23 19:00 16 11/22/23 19:00 98.1 F 16 11/22/23 18:56 102 H 99 11/22/23 18:51 103 H 99 11/22/23 18:46 112 H 123/93 99 11/22/23 18:41 130 H 99 11/22/23 18:36 101 H 100 11/22/23 18:31 110 H 100 11/22/23 18:30 16 11/22/23 18:30 16 11/22/23 18:26 94 H 100 11/22/23 18:21 91 H 97 11/22/23 18:17 82 128/84 11/22/23 18:16 76 99 11/22/23 18:11 87 99 11/22/23 18:06 96 H 100 11/22/23 18:01 99 11/22/23 18:01 95 H 11/22/23 18:01 87 127/90 11/22/23 18:00 16 11/22/23 18:00 98.2 F 16 11/22/23 17:56 88 100 11/22/23 17:51 99 H 100 11/22/23 17:47 96 H 136/104 H 11/22/23 17:46 90 100 11/22/23 17:41 86 100 11/22/23 17:36 85 100 11/22/23 17:32 85 129/87 11/22/23 17:31 86 100 11/22/23 17:30 86 18 91 11/22/23 17:26 84 98 11/22/23 17:25 98.1 F 11/22/23 17:23 74 93 11/22/23 17:21 70 99 11/22/23 17:16 88 122/73 99 11/22/23 17:11 68 100 11/22/23 17:06 81 100 11/22/23 17:02 88 90 11/22/23 17:01 79 136/83 100 11/22/23 17:00 16 11/22/23 17:00 16 11/22/23 16:56 83 99 11/22/23 16:51 78 100 11/22/23 16:47 79 136/86 11/22/23 16:46 79 100 11/22/23 16:41 84 100 11/22/23 16:36 80 100 11/22/23 16:31 78 129/86 100 11/22/23 16:30 16 11/22/23 16:30 16 11/22/23 16:26 83 100 11/22/23 16:21 83 100 11/22/23 16:17 75 131/86 11/22/23 16:16 84 100 11/22/23 16:11 83 99 11/22/23 16:06 85 99 11/22/23 16:02 89 127/79 11/22/23 16:01 88 100 11/22/23 16:00 16 11/22/23 16:00 16 11/22/23 15:56 83 98 11/22/23 15:51 113 H 100 11/22/23 15:46 93 H 99 11/22/23 15:43 75 123/75 11/22/23 15:41 83 99 11/22/23 15:38 78 123/68 11/22/23 15:36 81 100 11/22/23 15:33 74 118/71 11/22/23 15:31 80 99 11/22/23 15:30 16 11/22/23 15:30 98.1 F 16 11/22/23 15:28 75 119/77 11/22/23 15:26 79 99 11/22/23 15:24 75 120/72 11/22/23 15:21 76 99 11/22/23 15:18 80 123/63 11/22/23 15:16 93 H 99 11/22/23 15:11 83 119/72 100 11/22/23 15:09 83 115/71 11/22/23 15:07 98 H 118/69 11/22/23 15:06 94 H 98 11/22/23 15:05 102 H 117/70 11/22/23 15:03 102 H 121/67 11/22/23 15:01 109 H 119/67 98 11/22/23 15:00 129 H 16 116/63 11/22/23 14:58 61 89/54 L 11/22/23 14:56 64 16 99 11/22/23 14:55 78 94/49 L 11/22/23 14:54 109 H 118/56 L 11/22/23 14:53 16 11/22/23 14:53 16 11/22/23 14:51 99 11/22/23 14:51 116 H 11/22/23 14:51 111 H 111/60 11/22/23 14:46 93 H 99 11/22/23 14:41 94 H 99 11/22/23 14:36 100 H 99 11/22/23 13:47 16 11/22/23 13:47 16 11/22/23 13:29 98.1 F 11/22/23 12:04 83 138/87 11/22/23 10:31 84 140/86 11/22/23 09:02 81 139/84 11/22/23 09:00 16 11/22/23 09:00 16 11/22/23 07:59 88 127/75 11/22/23 07:05 98.1 F 16 11/22/23 06:37 82 139/81 11/22/23 05:36 78 123/69 11/22/23 02:04 98.1 F 83 18 132/79 Pain Intensity Abdomen: Pain Intensity: 0 Transfer of Care Handoff Completed per policy Notes Mental Status: alert / awake / arousable and participated in evaluation Patient Amnestic to Procedure: Yes Nausea / Vomiting: adequately controlled Pain: adequately controlled Airway Patency, RR, SpO2: stable & adequate BP & HR: stable & adequate Hydration State: stable & adequate Neuraxial Anesthesia: was administered and sensory block is resolving Anesthetic Complications: no major complications apparent and Pt Satisfied with anesthetic care
[2023-11-23] MEDS: ACETAMINOPHEN 325 MG TAB PO PRN (06:27)
[2023-11-23] MEDS: IBUPROFEN 600 MG TAB PO PRN (06:27)
--- NOTE | 2023-11-23 08:16 | Obstetrical Progress Note ---
Date of Service November 23, 2023 Assessment & Plan Admission and Anticipated Discharge Date Admission Date: November 20, 2023 Subjective Patient is seen and examined. She feels well, no complaints. Pain is under control with oral meds. Ambulated once without dizziness Tiburcioey just came out Tolerating regular diet with out N&V Bleeding is minimal No fever/ chills/ CP/ SOB/ N&V/ Leg pain Breast feeding without problems PE: General: Alert, orientedx3, NAD CVS: S1S2 RRR Lungs; CTAB Abd: soft, NT, ND, BS+, fundus firm, below Umbilicus Incision/ Dressing: Clean, dry, intact Perineum intact, Lochia rubra minimal Ext; NT, no edema AP: 33 yo s/p C Section, pod# 0 VSS Afebrile doing well Continue routine postop care Encourage ambulation, PO intake All questions were answered Results & Data Vital Signs (Past 12 Hours) Vital Signs Temp Pulse Pulse Resp BP Pulse Ox O2 Del Method 11/23/23 06:50 16 96 11/23/23 05:50 18 91 11/23/23 04:50 16 93 11/23/23 03:50 16 92 11/23/23 02:50 18 96 11/23/23 02:50 36.8 C 78 18 96 Room Air 11/23/23 02:39 81 95 11/23/23 02:34 96 11/23/23 02:34 84 11/23/23 02:34 90 133/81 11/23/23 02:33 103 H 93 11/23/23 02:29 96 H 96 11/23/23 02:28 76 93 11/23/23 02:25 18 11/23/23 02:24 74 95 11/23/23 02:23 77 128/78 94 11/23/23 02:19 75 95 11/23/23 02:17 73 94 11/23/23 02:14 74 94 11/23/23 02:13 74 124/76 11/23/23 02:12 70 94 11/23/23 02:09 72 95 11/23/23 02:07 74 94 11/23/23 02:04 77 95 11/23/23 02:03 75 121/76 11/23/23 01:59 94 11/23/23 01:59 77 11/23/23 01:59 72 94 11/23/23 01:55 18 11/23/23 01:54 72 95 11/23/23 01:53 74 11/23/23 01:53 72 121/78 94 11/23/23 01:49 70 95 11/23/23 01:48 76 94 11/23/23 01:44 71 96 11/23/23 01:43 71 125/79 11/23/23 01:39 71 96 11/23/23 01:34 73 96 11/23/23 01:33 68 119/77 11/23/23 01:29 78 96 11/23/23 01:24 78 97 11/23/23 01:23 76 126/81 11/23/23 01:19 80 97 11/23/23 01:15 16 11/23/23 01:14 77 98 11/23/23 01:13 79 121/79 11/23/23 01:09 78 99 11/23/23 01:05 18 11/23/23 01:04 85 98 11/23/23 01:03 78 119/59 L 11/23/23 00:59 88 100 11/23/23 00:55 18 11/23/23 00:54 99 11/23/23 00:54 93 H 11/23/23 00:54 87 128/73 11/23/23 00:49 80 100 11/23/23 00:46 18 11/23/23 00:44 78 100 11/23/23 00:43 79 119/68 11/23/23 00:39 88 100 11/23/23 00:34 101 H 102/63 100 11/23/23 00:29 97 H 100 11/23/23 00:25 36.5 C 11/23/23 00:24 103 H 100 11/23/23 00:23 108 H 92 11/23/23 00:20 104 H 138/64 11/23/23 00:19 106 H 100 11/22/23 23:06 98 H 96 11/22/23 23:02 86 132/80 11/22/23 23:01 90 96 11/22/23 23:00 18 11/22/23 23:00 36.8 C 11/22/23 22:56 96 H 95 11/22/23 22:51 94 H 97 11/22/23 22:46 97 11/22/23 22:46 99 H 11/22/23 22:46 96 H 126/89 11/22/23 22:41 91 H 96 11/22/23 22:36 94 H 96 11/22/23 22:31 95 H 137/84 98 11/22/23 22:26 101 H 96 11/22/23 22:21 96 H 97 11/22/23 22:16 97 11/22/23 22:16 96 H 11/22/23 22:16 101 H 143/87 H 11/22/23 22:11 118 H 97 11/22/23 22:06 96 H 98 11/22/23 22:01 113 H 149/83 H 98 11/22/23 21:56 140 H 97 11/22/23 21:51 130 H 99 11/22/23 21:46 141 H 100 11/22/23 21:41 100 H 97 11/22/23 21:36 107 H 99 11/22/23 21:32 96 H 135/80 11/22/23 21:31 93 H 98 11/22/23 21:30 16 11/22/23 21:30 16 11/22/23 21:26 104 H 99 11/22/23 21:21 119 H 99 11/22/23 21:18 96 H 143/93 H 11/22/23 21:16 99 H 99 11/22/23 21:11 105 H 98 11/22/23 21:06 93 H 99 11/22/23 21:01 87 134/96 99 11/22/23 21:00 18 11/22/23 21:00 36.6 C 18 11/22/23 20:56 83 99 11/22/23 20:51 85 99 11/22/23 20:47 83 131/92 11/22/23 20:46 93 H 99 11/22/23 20:41 88 99 11/22/23 20:36 91 H 99 11/22/23 20:31 100 11/22/23 20:31 84 11/22/23 20:31 88 123/74 11/22/23 20:30 18 11/22/23 20:30 18 11/22/23 20:26 80 100 11/22/23 20:21 77 100 11/22/23 20:17 71 119/68 11/22/23 20:16 72 100
[2023-11-23] MEDS: DOCUSATE SODIUM 100 MG CAP PO SCH (08:30)
[2023-11-23] MEDS: SIMETHICONE 80 MG CHEW PO SCH (08:30)
[2023-11-23] MEDS: PRENATAL VITAMIN 1 TAB PO SCH (08:30)
[2023-11-23] MEDS ORDERED: FAMOTIDINE 20 MG TAB PO SCH (09:00)
[2023-11-23] MEDS: FERROUS SULFATE 325 MG TAB PO SCH (11:51)
[2023-11-23] MEDS ORDERED: diphenhydrAMINE 50 MG/ML VIAL IV PRN (17:29)
[2023-11-23] MEDS ORDERED: ONDANSETRON INJ 2 MG/ML 2 ML VIAL IV PRN (17:29)
[2023-11-23] MEDS ORDERED: KETOROLAC 30 MG/ML VIAL IV PRN (17:29)
[2023-11-23] MEDS ORDERED: HYDROmorphone INJ 0.5 MG/0.5 ML SYR IV PRN (17:29)
[2023-11-23] MEDS ORDERED: PROMETHAZINE 12.5 MG/50.5 ML BAG IV PRN (17:29)
[2023-11-23] MEDS ORDERED: diphenhydrAMINE Capsule 25 MG CAP PO PRN (17:29)
[2023-11-23] MEDS ORDERED: oxyCODONE HCL IR 5 MG TAB (IMMEDIATE RELEASE) PO PRN (17:29)
[2023-11-23] MEDS: BUPIVACAINE 0.25% PF 30 ML VIAL EPI STA (19:43)
[2023-11-23] MEDS: SODIUM CHLORIDE 0.9% PF INJ 10 ML VIAL EPI STA (19:43)
[2023-11-23] MEDS: fentaNYL citrate PF 100 MCG/2 ML VIAL EPI STA (19:43)
[2023-11-23] MEDS: LIDOCAINE 2%/EPINEPHRINE 1:200,000 20 ML PF EPI STA (19:43)
[2023-11-23] MEDS: MoRPHine SULFATE PF 1 MG/ML 10 ML AMP/VIAL EPI ONE (19:44)
[2023-11-23] MEDS: SODIUM CHLORIDE 0.9% 1,000 ML IV SCH (19:44)
[2023-11-23] MEDS: OXYTOCIN 20 UNITS/1002ML LR IV ONE (19:44)
[2023-11-23] MEDS: LACTATED RINGER'S 1,000 ML IV SCH (19:45)
[2023-11-23] MEDS: DIPHTHER/TETAN/PERTUS Vaccine (Tdap, Adol/Adult) 0.5mL IM ONE (21:16)
[2023-11-23] MEDS: CALCIUM CARBONATE 500 MG CHEWABLE TAB PO PRN (21:19)
[2023-11-24 07:22] LABS: Basophils # (auto) 0.02 K/uL (0.00-0.20); Basophils % (auto) 0.2 %; Eosinophils # (auto) 0.11 K/uL (0.00-0.50); Eosinophils % (auto) 1.1 %; Hematocrit (blood only) 33.5 % (37.0-47.0); Hemoglobin 10.6 g/dl (12.0-16.0); Lymphocytes # (auto) 1.21 K/uL (1.20-3.40); Lymphocytes % (auto) 11.6 %; Mean Corpuscular Hemoglobin 25.8 pg (25.0-34.0); Mean Corpuscular Hgb Conc 31.6 g/dL (32.0-36.0); Mean Corpuscular Volume 81.5 fL (80.0-100.0); Monocytes # (auto) 0.98 K/uL (0.11-0.59); Monocytes % (auto) 9.4 %; Neutrophils # (auto) 7.97 K/uL (1.40-6.50); Neutrophils % (auto) 76.7 %; RDW Coefficient of Variation 24.4 % (11.5-14.5); RDW Standard Deviation 67.9 fL (36.4-46.3); Red Blood Count 4.11 M/uL (4.20-5.40); White Blood Count 10.39 K/ul (4.8-10.8)
[2023-11-24] MEDS: MAGNESIUM HYDROXIDE SUSP 30 ML UDC PO PRN (10:59)
--- NOTE | 2023-11-24 11:45 | Obstetrical Progress Note ---
Date of Service November 24, 2023 Subjective Ambulation: ambulating normally Voiding: no voiding problems Passing Gas:: Yes Diet Tolerance:: regular diet Lochia:: Small Feeding Type:: breast feeding Current Pain Level(1-10): 0 doing well Physical Exam Musculoskeletal Extremities: extremities normal to inspection Skin no rashes, warm and dry Neurologic patellar DTR's 2+ bilat, sensation intact Psychiatric A+Ox3, euthymic affect Results & Data Vital Signs (Past 12 Hours) Vital Signs Temp Pulse Resp BP Pulse Ox O2 Del Method 11/24/23 08:00 36.4 C L 77 18 128/82 96 Room Air 11/24/23 00:00 36.6 C 84 16 135/88 98 Room Air Laboratory Results Laboratory Results - last 72 hr 11/22/23 11/22/23 11/22/23 08:03 09:35 22:32 WBC 11.51 H 13.96 H RBC 4.93 4.69 Hgb 12.6 11.9 L Hct 39.2 38.3 MCV 79.5 L 81.7 MCH 25.6 25.4 MCHC 32.1 31.1 L RDW Std Deviation 66.1 H 68.6 H RDW Coeff of Juvenal 24.3 H 24.6 H Plt Count 157 150 MPV 11.1 11.6 Immature Gran % (Auto) 0.7 Neut % (Auto) 77.9 Lymph % (Auto) 11.0 [place] % (Auto) 9.5 Eos % (Auto) 0.6 Baso % (Auto) 0.3 Neut # (Auto) 8.96 H Lymph # (Auto) 1.27 [place] # (Auto) 1.09 H Eos # (Auto) 0.07 Baso # (Auto) 0.04 Immature Gran # (Auto) 0.08 Anisocytosis Present Sodium 133 L Potassium 3.6 Chloride 104 Carbon Dioxide 22 Anion Gap 7 BUN 6 Creatinine 0.62 Est Cr Clr Drug Dosing 148.0 Est GFR ( Amer) 137.3 Est GFR (Non-Af Amer) 118.5 BUN/Creatinine Ratio 9.7 L Glucose 97 Uric Acid 4.2 Calcium 8.7 Total Bilirubin 0.6 Direct Bilirubin 0.1 AST 16 ALT 22 Alkaline Phosphatase 116 H Lactate Dehydrogenase 150 Total Protein 6.6 Albumin 3.4 Globulin 3.2 Albumin/Globulin Ratio 1.1 Ur Random Creatinine 148.6 U Random Total Protein 20.5 H Protein/Creatinin Ratio 0.1 Treponema pallidum Ab Negative Blood Type A Positive Antibody Screen NEGATIVE 11/24/23 06:27 WBC 10.39 RBC 4.11 L Hgb 10.6 L Hct 33.5 L MCV 81.5 MCH 25.8 MCHC 31.6 L RDW Std Deviation 67.9 H RDW Coeff of Juvenal 24.4 H Plt Count MPV Immature Gran % (Auto) 1.0 Neut % (Auto) 76.7 Lymph % (Auto) 11.6 [place] % (Auto) 9.4 Eos % (Auto) 1.1 Baso % (Auto) 0.2 Neut # (Auto) 7.97 H Lymph # (Auto) 1.21 [place] # (Auto) 0.98 H Eos # (Auto) 0.11 Baso # (Auto) 0.02 Immature Gran # (Auto) 0.10 Anisocytosis Sodium Potassium Chloride Carbon Dioxide Anion Gap BUN Creatinine Est Cr Clr Drug Dosing Est GFR ( Amer) Est GFR (Non-Af Amer) BUN/Creatinine Ratio Glucose Uric Acid Calcium Total Bilirubin Direct Bilirubin AST ALT Alkaline Phosphatase Lactate Dehydrogenase Total Protein Albumin Globulin Albumin/Globulin Ratio Ur Random Creatinine U Random Total Protein Protein/Creatinin Ratio Treponema pallidum Ab Blood Type Antibody Screen
[2023-11-24] MEDS: bisacodyL 5 MG TABEC PO SCH (19:34)
[2023-11-25] MEDS ORDERED: ACETAMINOPHEN 325 MG TAB PO PRN (00:10)
[2023-11-25] MEDS ORDERED: bisacodyL 10 MG SUPP PR PRN (00:10)
[2023-11-25] MEDS ORDERED: IBUPROFEN 600 MG TAB PO PRN (00:10)
[2023-11-25] MEDS ORDERED: traMADol HCL 50 MG TABLET PO PRN (00:10)
[2023-11-25 00:17] VITALS: TEMP 97.7; O2SAT 96
[2023-11-25 07:10] LABS: Hematocrit (blood only) 32.2 % (37.0-47.0); Hemoglobin 10.3 g/dl (12.0-16.0)
--- NOTE | 2023-11-25 08:47 | Obstetrical Progress Note ---
Date of Service November 25, 2023 Assessment & Plan Admission and Anticipated Discharge Date Admission Date: November 20, 2023 Subjective Patient is seen and examined. She feels well, no complaints. Pain is under control with oral meds. Ambulating without dizziness Voiding without difficulty Tolerating regular diet with out N&V Flatus + BM + Bleeding is minimal No fever/ chills/ CP/ SOB/ N&V/ Leg pain Breast and bottle feeding without problems Vital Signs Temp Pulse Pulse Resp BP Pulse Ox O2 Del Method 11/25/23 00:05 36.5 C 81 16 129/87 96 Room Air 11/24/23 19:30 36.4 C L 92 H 16 134/99 98 Room Air 11/24/23 16:53 77 140/92 11/24/23 15:58 36.5 C 90 16 142/87 H 97 Room Air Lab Results 11/20/23 11/20/23 11/20/23 Range/Units 08:48 08:52 22:53 WBC 9.28 (4.8-10.8) K/ul RBC 4.60 (4.20-5.40) M/uL Hgb 11.6 L (12.0-16.0) g/dl Hct 36.6 L (37.0-47.0) % MCV 79.6 L (80.0-100.0) fL MCH 25.2 (25.0-34.0) pg MCHC 31.7 L (32.0-36.0) g/dL RDW Std Deviation 65.4 H (36.4-46.3) fL RDW Coeff of Juvenal 23.9 H (11.5-14.5) % Plt Count 137 (130-400) K/uL MPV (9.4-12.4) fL Immature Gran % (Auto) % Neut % (Auto) % Lymph % (Auto) % [place] % (Auto) % Eos % (Auto) % Baso % (Auto) % Neut # (Auto) (1.40-6.50) K/uL Lymph # (Auto) (1.20-3.40) K/uL [place] # (Auto) (0.11-0.59) K/uL Eos # (Auto) (0.00-0.50) K/uL Baso # (Auto) (0.00-0.20) K/uL Immature Gran # (Auto) (0.01-0.20) K/uL Anisocytosis Sodium (136-145) mmol/L Potassium (3.5-5.1) mmol/L Chloride (98-107) mmol/L Carbon Dioxide (21-32) mmol/L Anion Gap (3-11) BUN (6-23) mg/dl Creatinine (0.6-1.2) mg/dl Est Cr Clr Drug Dosing ml/min Est GFR ( Amer) ml/min Est GFR (Non-Af Amer) ml/min BUN/Creatinine Ratio (10-20) Glucose (70-99(Fasting)) mg/dl Uric Acid (2.6-7.2) mg/dl Calcium (8.6-10.3) mg/dl Total Bilirubin (0.2-1.0) mg/dl Direct Bilirubin (0-0.2) mg/dl AST (13-39) U/L ALT (7-52) U/L Alkaline Phosphatase (34-104) U/L Lactate Dehydrogenase (86-244) U/L Total Protein (6.0-8.3) gm/dl Albumin (3.4-5.0) gm/dl Globulin (2.5-4.0) gm/dl Albumin/Globulin Ratio (0.9-2) Ur Random Creatinine mg/dl U Random Total Protein (0-11.9) mg/dl Protein/Creatinin Ratio (0-0.2) Treponema pallidum Ab Negative (Negative) Blood Type A Positive Antibody Screen NEGATIVE 11/22/23 11/22/23 11/22/23 Range/Units 08:03 09:35 22:32 WBC 11.51 H 13.96 H (4.8-10.8) K/ul RBC 4.93 4.69 (4.20-5.40) M/uL Hgb 12.6 11.9 L (12.0-16.0) g/dl Hct 39.2 38.3 (37.0-47.0) % MCV 79.5 L 81.7 (80.0-100.0) fL MCH 25.6 25.4 (25.0-34.0) pg MCHC 32.1 31.1 L (32.0-36.0) g/dL RDW Std Deviation 66.1 H 68.6 H (36.4-46.3) fL RDW Coeff of Juvenal 24.3 H 24.6 H (11.5-14.5) % Plt Count 157 150 (130-400) K/uL MPV 11.1 11.6 (9.4-12.4) fL Immature Gran % (Auto) 0.7 % Neut % (Auto) 77.9 % Lymph % (Auto) 11.0 % [place] % (Auto) 9.5 % Eos % (Auto) 0.6 % Baso % (Auto) 0.3 % Neut # (Auto) 8.96 H (1.40-6.50) K/uL Lymph # (Auto) 1.27 (1.20-3.40) K/uL [place] # (Auto) 1.09 H (0.11-0.59) K/uL Eos # (Auto) 0.07 (0.00-0.50) K/uL Baso # (Auto) 0.04 (0.00-0.20) K/uL Immature Gran # (Auto) 0.08 (0.01-0.20) K/uL Anisocytosis Present Sodium 133 L (136-145) mmol/L Potassium 3.6 (3.5-5.1) mmol/L Chloride 104 (98-107) mmol/L Carbon Dioxide 22 (21-32) mmol/L Anion Gap 7 (3-11) BUN 6 (6-23) mg/dl Creatinine 0.62 (0.6-1.2) mg/dl Est Cr Clr Drug Dosing 148.0 ml/min Est GFR ( Amer) 137.3 ml/min Est GFR (Non-Af Amer) 118.5 ml/min BUN/Creatinine Ratio 9.7 L (10-20) Glucose 97 (70-99(Fasting)) mg/dl Uric Acid 4.2 (2.6-7.2) mg/dl Calcium 8.7 (8.6-10.3) mg/dl Total Bilirubin 0.6 (0.2-1.0) mg/dl Direct Bilirubin 0.1 (0-0.2) mg/dl AST 16 (13-39) U/L ALT 22 (7-52) U/L Alkaline Phosphatase 116 H (34-104) U/L Lactate Dehydrogenase 150 (86-244) U/L Total Protein 6.6 (6.0-8.3) gm/dl Albumin 3.4 (3.4-5.0) gm/dl Globulin 3.2 (2.5-4.0) gm/dl Albumin/Globulin Ratio 1.1 (0.9-2) Ur Random Creatinine 148.6 mg/dl U Random Total Protein 20.5 H (0-11.9) mg/dl Protein/Creatinin Ratio 0.1 (0-0.2) Treponema pallidum Ab Negative (Negative) Blood Type A Positive Antibody Screen NEGATIVE 11/24/23 11/25/23 Range/Units 06:27 06:31 WBC 10.39 (4.8-10.8) K/ul RBC 4.11 L (4.20-5.40) M/uL Hgb 10.6 L 10.3 L (12.0-16.0) g/dl Hct 33.5 L 32.2 L (37.0-47.0) % MCV 81.5 (80.0-100.0) fL MCH 25.8 (25.0-34.0) pg MCHC 31.6 L (32.0-36.0) g/dL RDW Std Deviation 67.9 H (36.4-46.3) fL RDW Coeff of Juvenal 24.4 H (11.5-14.5) % Plt Count (130-400) K/uL MPV (9.4-12.4) fL Immature Gran % (Auto) 1.0 % Neut % (Auto) 76.7 % Lymph % (Auto) 11.6 % [place] % (Auto) 9.4 % Eos % (Auto) 1.1 % Baso % (Auto) 0.2 % Neut # (Auto) 7.97 H (1.40-6.50) K/uL Lymph # (Auto) 1.21 (1.20-3.40) K/uL [place] # (Auto) 0.98 H (0.11-0.59) K/uL Eos # (Auto) 0.11 (0.00-0.50) K/uL Baso # (Auto) 0.02 (0.00-0.20) K/uL Immature Gran # (Auto) 0.10 (0.01-0.20) K/uL Anisocytosis Sodium (136-145) mmol/L Potassium (3.5-5.1) mmol/L Chloride (98-107) mmol/L Carbon Dioxide (21-32) mmol/L Anion Gap (3-11) BUN (6-23) mg/dl Creatinine (0.6-1.2) mg/dl Est Cr Clr Drug Dosing ml/min Est GFR ( Amer) ml/min Est GFR (Non-Af Amer) ml/min BUN/Creatinine Ratio (10-20) Glucose (70-99(Fasting)) mg/dl Uric Acid (2.6-7.2) mg/dl Calcium (8.6-10.3) mg/dl Total Bilirubin (0.2-1.0) mg/dl Direct Bilirubin (0-0.2) mg/dl AST (13-39) U/L ALT (7-52) U/L Alkaline Phosphatase (34-104) U/L Lactate Dehydrogenase (86-244) U/L Total Protein (6.0-8.3) gm/dl Albumin (3.4-5.0) gm/dl Globulin (2.5-4.0) gm/dl Albumin/Globulin Ratio (0.9-2) Ur Random Creatinine mg/dl U Random Total Protein (0-11.9) mg/dl Protein/Creatinin Ratio (0-0.2) Treponema pallidum Ab (Negative) Blood Type Antibody Screen PE: General: Alert, orientedx3, NAD CVS: S1S2 RRR Lungs; CTAB Abd: soft, NT, ND, BS+, fundus firm, below Umbilicus Incision/ Dressing: Clean, dry, intact Perineum intact, Lochia rubra minimal Ext; NT, no edema AP: 33 yo s/p C Section, pod# 2 VSS Afebrile doing well Continue routine postop care Encourage ambulation, PO intake All questions were answered D/C home , f/u in office Results & Data Vital Signs (Past 12 Hours) Vital Signs Temp Pulse Resp BP Pulse Ox O2 Del Method 11/25/23 00:05 36.5 C 81 16 129/87 96 Room Air
[2023-11-25 10:36] VITALS: BP 132/86; PULSE 70; RESP 18
== END 2023-11-25 12:20 | disposition home health service (06) | DRG 788 ==
LOC: 4S1 07:48 → 4E2 11-23 03:05